=== PATIENT | female | born 1950 | race Caucasian/White ===

== ENCOUNTER 2017-01-16 17:42 | Inpatient (IN) | payer OTHER, MEDICARE ==
[~2017-01-16] VITALS: Ht 160 cm; Wt 113.1 kg
[~2017-01-16 17:42] MED LIST: ALPR0.5T6 PO; ALPR1TAB6 PO; BIFI4CAP PO; CALC600T11 PO; CANA300T PO; DOCU-27 PO; DULO60CA6 PO; FENT1PAT21 TD; FLUT9.9S NS; FURO80TA3 PO; GLUCOSAMINE 1,1 EACH PO; LORA10TA3 PO; MELO15TA6 PO; METH-38 PO; METO25TA9 PO; MONT10TA9 PO; MULT-246 PO; OLOP30.53 NS; OMEG10005 PO; OXYB5TAB7 PO; OXYC20TA PO; PANT40TA3 PO; PHEN37.5 PO; POLY17PO29 PO; POTA20TA82 PO; PROAIR HFA8.5 GM INH; RISE150T3 PO; SERT100T PO; SPIR25TA PO
[2017-01-16 22:10] VITALS: BP 81/51
[2017-01-16 22:11] VITALS: BP 81/51
[2017-01-16] MEDS ORDERED: ACETAMINOPHEN 325 MG TABLET. PO PRN (22:45)
[2017-01-16] MEDS ORDERED: ONDANSETRON PF 4 MG/2 ML VIAL. IV PRN (23:00)
[2017-01-16] MEDS ORDERED: ENOXAPARIN 40 MG/0.4 ML SYRINGE. SQ SCH (23:00)
[2017-01-16] MEDS ORDERED: oxyCODONE IR 5 MG TABLET PO PRN (23:00)
[2017-01-16] MEDS: IV NORMAL SALINE 1000ML BAG 1,000 ML IV SCH (23:00)
[2017-01-17] MEDS: ALPRAZolam 1 MG TABLET PO PRN (00:32)
[2017-01-17 02:40] VITALS: BP 80/40
[2017-01-17] MEDS ORDERED: IPRATRPIUM/ALBUTEROL 0.5/2.5MG 3 ML NEBU. NEB ONE (02:45)
[2017-01-17 05:01] LABS: BASO % 0 % (0-3); EOS % 0 % (0-3); HEMATOCRIT 33.8 % (36.0-47.0); HEMOGLOBIN 11.7 g/dL (12.0-15.5); LYMPH # 0.9 x10^3/uL (1.0-4.8); LYMPH % 16 % (24-48); MEAN CORPUSCULAR HEMOGLOBIN 32 pg (25-35); MEAN CORPUSCULAR HGB CONC 35 g/dL (31-37); MEAN CORPUSCULAR VOLUME 92 fL (79-100); MONO % 3 % (0-9); NEUT % 82 % (31-73); PLATELET COUNT 142 x10^3/uL (140-400); RED BLOOD COUNT 3.66 x10^6/uL (3.50-5.40); RED CELL DISTRIBUTION WIDTH 14.3 % (11.5-14.5)
[2017-01-17 05:19] LABS: CREATININE 1.1 mg/dL (0.6-1.0); GFR 49.7; POTASSIUM 3.9 mmol/L (3.5-5.1)
[2017-01-17 07:00] VITALS: BP 78/39
[2017-01-17] MEDS: IPRATRPIUM/ALBUTEROL 0.5/2.5MG 3 ML NEBU. NEB SCH ×4 (07:50→19:19)
--- NOTE | 2017-01-17 08:01 | EKG ---
[facility] [address] [place] [address] Test Date: 2017-01-17 Test Time: 07:52:01 Pat Name: JAVIER ASH Department: Room: 244 1 Gender: F Terrazzo Roller: LEORA : 1950 Requested By: FERNANDO WISEMAN Order Number: [id number] Reading MD: Michael Sanchez Measurements Intervals [place] Rate: 82 P: 45 CA: 194 QRS: -31 QRSD: 88 T: 4 QT: 400 QTc: 471 Interpretive Statements SINUS RHYTHM ATRIAL PREMATURE COMPLEX(ES) ABNORMAL LEFT AXIS DEVIATION QRS(T) CONTOUR ABNORMALITY CONSISTENT WITH INFERIOR INFARCT AGE UNDETERMINED Electronically Signed On 01-18-2017 15:35:02 CDT by Michael Sanchez
--- NOTE | 2017-01-17 08:56 | RAD ---
Indication difficulty breathing. Cough. Pneumonia. PA and lateral views of the chest were obtained. Comparison is made to a single view examination 08/21/2016. There is unchanged elevation of the right hemidiaphragm. The heart size is unchanged. There are suspect background changes of ulnar vascular congestion. There is some volume loss in the right upper lobe suggesting possible superimposed pneumonia. Clinical correlation advised. Follow-up imaging should be considered. IMPRESSION: Stable cardiomegaly. Volume loss in the right upper lobe suggesting possible pneumonia. Pulmonary infiltrates suggesting superimposed congestive heart failure
[2017-01-17] MEDS ORDERED: DOCUSATE SODIUM 100 MG CAPSULE. PO SCH (09:00)
[2017-01-17] MEDS ORDERED: HYDROCORTISONE SOD SUCC/PF 100 MG/2 ML VIAL. IV SCH (09:00)
--- NOTE | 2017-01-17 10:03 | PDOC ---
PROGRESS NOTES Vitals Vitals Vital Signs Date Time Temp Pulse Resp B/P (MAP) Pulse Ox O2 Delivery O2 Flow Rate FiO2 01/17/17 08:33 Nasal Cannula 4.0 01/17/17 07:50 97 01/17/17 07:00 97.5 75 18 78/39 (52) 97.5 Labs LABS Laboratory Tests Test 01/16/17 22:13 01/17/17 03:30 01/17/17 07:12 Glucose (Fingerstick) 165 mg/dL (70-99) 129 mg/dL (70-99) White Blood Count 6.0 x10^3/uL (4.0-11.0) Red Blood Count 3.66 x10^6/uL (3.50-5.40) Hemoglobin 11.7 g/dL (12.0-15.5) Hematocrit 33.8 % (36.0-47.0) Mean Corpuscular Volume 92 fL (79-100) Mean Corpuscular Hemoglobin 32 pg (25-35) Mean Corpuscular Hemoglobin Concent 35 g/dL (31-37) Red Cell Distribution Width 14.3 % (11.5-14.5) Platelet Count 142 x10^3/uL (140-400) Neutrophils (%) (Auto) 82 % (31-73) Lymphocytes (%) (Auto) 16 % (24-48) Monocytes (%) (Auto) 3 % (0-9) Eosinophils (%) (Auto) 0 % (0-3) Basophils (%) (Auto) 0 % (0-3) Neutrophils # (Auto) 4.9 x10^3uL (1.8-7.7) Lymphocytes # (Auto) 0.9 x10^3/uL (1.0-4.8) Monocytes # (Auto) 0.2 x10^3/uL (0.0-1.1) Eosinophils # (Auto) 0.0 x10^3/uL (0.0-0.7) Basophils # (Auto) 0.0 x10^3/uL (0.0-0.2) Sodium Level 144 mmol/L (136-145) Potassium Level 3.9 mmol/L (3.5-5.1) Chloride Level 104 mmol/L (98-107) Carbon Dioxide Level 34 mmol/L (21-32) Anion Gap 6 (6-14) Blood Urea Nitrogen 32 mg/dL (7-20) Creatinine 1.1 mg/dL (0.6-1.0) Estimated GFR (Cockcroft-Gault) 49.7 Glucose Level 152 mg/dL (70-99) Lactic Acid Level 2.1 mmol/L (0.4-2.0) Calcium Level 9.0 mg/dL (8.5-10.1) Magnesium Level 2.0 mg/dL (1.8-2.4) Thyroid Stimulating Hormone (TSH) 0.229 uIU/mL (0.358-3.74) Comment Review of Relevant I have reviewed the following items jared (where applicable) has been applied. Labs Laboratory Tests Test 01/16/17 22:13 01/17/17 03:30 01/17/17 07:12 Glucose (Fingerstick) 165 mg/dL (70-99) 129 mg/dL (70-99) White Blood Count 6.0 x10^3/uL (4.0-11.0) Red Blood Count 3.66 x10^6/uL (3.50-5.40) Hemoglobin 11.7 g/dL (12.0-15.5) Hematocrit 33.8 % (36.0-47.0) Mean Corpuscular Volume 92 fL (79-100) Mean Corpuscular Hemoglobin 32 pg (25-35) Mean Corpuscular Hemoglobin Concent 35 g/dL (31-37) Red Cell Distribution Width 14.3 % (11.5-14.5) Platelet Count 142 x10^3/uL (140-400) Neutrophils (%) (Auto) 82 % (31-73) Lymphocytes (%) (Auto) 16 % (24-48) Monocytes (%) (Auto) 3 % (0-9) Eosinophils (%) (Auto) 0 % (0-3) Basophils (%) (Auto) 0 % (0-3) Neutrophils # (Auto) 4.9 x10^3uL (1.8-7.7) Lymphocytes # (Auto) 0.9 x10^3/uL (1.0-4.8) Monocytes # (Auto) 0.2 x10^3/uL (0.0-1.1) Eosinophils # (Auto) 0.0 x10^3/uL (0.0-0.7) Basophils # (Auto) 0.0 x10^3/uL (0.0-0.2) Sodium Level 144 mmol/L (136-145) Potassium Level 3.9 mmol/L (3.5-5.1) Chloride Level 104 mmol/L (98-107) Carbon Dioxide Level 34 mmol/L (21-32) Anion Gap 6 (6-14) Blood Urea Nitrogen 32 mg/dL (7-20) Creatinine 1.1 mg/dL (0.6-1.0) Estimated GFR (Cockcroft-Gault) 49.7 Glucose Level 152 mg/dL (70-99) Lactic Acid Level 2.1 mmol/L (0.4-2.0) Calcium Level 9.0 mg/dL (8.5-10.1) Magnesium Level 2.0 mg/dL (1.8-2.4) Thyroid Stimulating Hormone (TSH) 0.229 uIU/mL (0.358-3.74) Laboratory Tests Test 01/16/17 22:13 01/17/17 03:30 01/17/17 07:12 Glucose (Fingerstick) 165 mg/dL (70-99) 129 mg/dL (70-99) White Blood Count 6.0 x10^3/uL (4.0-11.0) Red Blood Count 3.66 x10^6/uL (3.50-5.40) Hemoglobin 11.7 g/dL (12.0-15.5) Hematocrit 33.8 % (36.0-47.0) Mean Corpuscular Volume 92 fL (79-100) Mean Corpuscular Hemoglobin 32 pg (25-35) Mean Corpuscular Hemoglobin Concent 35 g/dL (31-37) Red Cell Distribution Width 14.3 % (11.5-14.5) Platelet Count 142 x10^3/uL (140-400) Neutrophils (%) (Auto) 82 % (31-73) Lymphocytes (%) (Auto) 16 % (24-48) Monocytes (%) (Auto) 3 % (0-9) Eosinophils (%) (Auto) 0 % (0-3) Basophils (%) (Auto) 0 % (0-3) Neutrophils # (Auto) 4.9 x10^3uL (1.8-7.7) Lymphocytes # (Auto) 0.9 x10^3/uL (1.0-4.8) Monocytes # (Auto) 0.2 x10^3/uL (0.0-1.1) Eosinophils # (Auto) 0.0 x10^3/uL (0.0-0.7) Basophils # (Auto) 0.0 x10^3/uL (0.0-0.2) Sodium Level 144 mmol/L (136-145) Potassium Level 3.9 mmol/L (3.5-5.1) Chloride Level 104 mmol/L (98-107) Carbon Dioxide Level 34 mmol/L (21-32) Anion Gap 6 (6-14) Blood Urea Nitrogen 32 mg/dL (7-20) Creatinine 1.1 mg/dL (0.6-1.0) Estimated GFR (Cockcroft-Gault) 49.7 Glucose Level 152 mg/dL (70-99) Lactic Acid Level 2.1 mmol/L (0.4-2.0) Calcium Level 9.0 mg/dL (8.5-10.1) Magnesium Level 2.0 mg/dL (1.8-2.4) Thyroid Stimulating Hormone (TSH) 0.229 uIU/mL (0.358-3.74) Medications Current Medications Sodium Chloride 1,000 ml @ 60 mls/hr [id number] IV Last administered on 23:00; Start 01/16/17 at 23:00 Ondansetron HCl (Zofran) 4 mg PRN Q6HRS PRN IV NAUSEA/VOMITING; Start 01/16/17 at 23:00 Oxycodone HCl (Roxicodone) 10 mg PRN Q8HRS PRN PO MODERATE PAIN, SEVERE PAIN; Start 01/16/17 at 23:00 Acetaminophen (Tylenol) 650 mg PRN Q6HRS PRN PO Headaches, Temp > 101.5F; Start 01/16/17 at 22:45 Docusate Sodium (Colace) 100 mg BID PO ; Start 01/17/17 at 09:00 Enoxaparin Sodium (Lovenox 40mg Syringe) 40 mg Q24H SQ Last administered on 00:33; Start 01/16/17 at 23:00 Hydrocortisone Sodium Succinate (Solu-CORTEF) 60 mg Q12HR IV Last administered on 01/17/17 09:42; Start 01/17/17 at 09:00 Famotidine (Pepcid) 20 mg QHS PO ; Start 01/17/17 at 21:00 Albuterol/ Ipratropium (Duoneb) 3 ml RTQID NEB Last administered on 01/17/17 07:50; Start 01/17/17 at 08:00 Alprazolam (Xanax) 1 mg PRN Q8HRS PRN PO ANXIETY / AGITATION Last administered on 01/17/17 00:32; Start 01/17/17 at 00:15 Albuterol/ Ipratropium (Duoneb) 3 ml 1X ONCE NEB Last administered on 02:49; Start 01/17/17 at 02:45; Stop 01/17/17 at 02:46; Status DC Guaifenesin (Robitussin Dm) 10 ml PRN Q6HRS PRN PO COUGH; Start 01/17/17 at 02: 45 Active Scripts Active Reported Phentermine Hcl 37.5 Mg Tablet 1 Tab PO PRN BID PRN Actonel (Risedronate Sodium) 150 Mg Tablet 1 Tab PO QMONTH Miralax (Polyethylene Glycol 3350) 17 Gm Powd.pack 1 Packet PO DAILY PRN Olopatadine HCl 30.5 Gm [place].pump 30.5 Gm NS DAILY Flonase Allergy Relief (Fluticasone Propionate) 9.9 Ml [place].susp 1 Sprays NS BID FENTANYL 100mcg/hr (Fentanyl) 1 Each Patch.td72 1 Patch TD Q72H Proair Hfa Inhaler (Albuterol Sulfate) 8.5 Gm Hfa.aer.ad 2 Puff INH QID PRN [place]-3 ([place]-3 Fatty Acids) 1,000 Mg Capsule 1,000 Mg PO BID Multi-Vitamin Daily (Multivitamin) 1 Each Tablet 1 Each PO Glucosamine 1,500 Complex Cp (Gluc Becerril/Chondro Becerril A/Vit C/Mn) 1 Each Capsule 1 Each PO BID Calcium Carbonate 600 Mg Tablet 600 Mg PO BID Furosemide 80 Mg Tablet 1 Tab PO DAILY Aldactone (Spironolactone) 25 Mg Tablet 2 Tab PO DAILY16 Zoloft (Sertraline Hcl) 100 Mg Tablet 2 Tab PO DAILY Potassium Chloride 20 Meq Tablet.er 20 Meq PO BID Protonix (Pantoprazole Sodium) 40 Mg Tablet.dr 1 Tab PO BID Oxycodone Hcl 20 Mg Tablet 40 Mg PO TID PRN Oxybutynin Chloride 5 Mg Tablet 1 Tab PO BID Montelukast Sodium Tablet (Montelukast Sodium) 10 Mg Tablet 10 Mg PO HS Metoprolol Succinate ( Xl ) (Metoprolol Succinate) 25 Mg Tab.er.24h 1 Tab PO DAILY Robaxin-750 (Methocarbamol) 750 Mg Tablet 750 Mg PO QID Mobic (Meloxicam) 15 Mg Tablet 1 Tab PO DAILY Loratadine 10 Mg Tablet 1 Tab PO DAILY Cymbalta (Duloxetine Hcl) 60 Mg Capsule.dr 1 Cap PO BID76 Colace (Docusate Sodium) 100 Mg Capsule 1 Cap PO BID Invokana (Canagliflozin) 300 Mg Tablet 300 Mg PO DAILY Alprazolam 1 Mg Tablet 1 Tab PO TID Alprazolam 1 Mg Tablet 1 Tab PO HS Alprazolam 0.5 Mg Tablet 1 Tab PO HS Align (Bifidobacterium Infantis) 4 Mg Capsule 4 Mg PO HS Vitals/I & O Vital Sign - Last 24 Hours 01/16/17 01/16/17 01/16/17 01/17/17 22:00 22:10 22:11 02:40 Temp 98.3 98.3 97.2 98.3 98.3 97.2 Pulse 92 92 86 Resp 22 22 18 B/P (MAP) 81/51 (61) 81/51 (61) 80/40 (53) Pulse Ox 94 94 95 O2 Delivery Nasal Cannula Nasal Cannula Nasal Cannula Nasal Cannula O2 Flow Rate 4.0 4.0 4.0 4.0 01/17/17 01/17/17 01/17/17 01/17/17 02:49 07:00 07:50 08:33 Temp 97.5 97.5 Pulse 75 Resp 18 B/P (MAP) 78/39 (52) Pulse Ox 97 98 97 O2 Delivery Nasal Cannula Nasal Cannula Nasal Cannula Nasal Cannula O2 Flow Rate 4.0 4.0 4.0 4.0 Intake and Output 01/16/17 01/16/17 01/17/17 15:00 23:00 07:00 Intake Total 740 ml Output Total 200 ml Balance 540 ml ZHANNA DAUGHERTY MD January 17, 2017 10:03
[2017-01-17] MEDS ORDERED: ACETAMINOPHEN 325 MG TABLET. PO PRN (10:15)
[2017-01-17] MEDS ORDERED: ONDANSETRON PF 4 MG/2 ML VIAL. IV PRN (10:15)
[2017-01-17] MEDS ORDERED: hydrALAZINE 20 MG/ML VIAL. IVP PRN (10:15)
[2017-01-17] MEDS ORDERED: BUDE10.2 IH (10:39)
[2017-01-17] MEDS ORDERED: LAMO200T PO (10:39)
[2017-01-17] MEDS ORDERED: FAMO40TA4 PO (10:39)
[2017-01-17] MEDS ORDERED: OXYC10TA PO (10:39)
[2017-01-17] MEDS ORDERED: ESCI20TA10 PO (10:39)
[2017-01-17] MEDS ORDERED: ALPR2TAB5 PO (10:39)
[2017-01-17] MEDS ORDERED: FURO20TA3 PO (10:39)
[2017-01-17] MEDS ORDERED: SENN1TAB21 PO (10:39)
[2017-01-17] MEDS ORDERED: PRED20TA PO (10:39)
[2017-01-17] MEDS ORDERED: LISI2.5T PO (10:39)
[2017-01-17 11:00] VITALS: BP 109/53
--- NOTE | 2017-01-17 13:01 | RAD ---
CT of the chest without contrast, 01/17/2017: History: Pneumonia Noncontrast scans were obtained with multiplanar reconstructions produced. The right hemidiaphragm is mildly elevated. There are moderate bilateral parenchymal opacities representing a combination of interstitial disease and groundglass opacities. There is dominant involvement of the periphery of the lungs. The pattern suggests fibrosis. There is bronchiectasis in both lungs, most severe anteriorly in the upper lobes and the right middle lobe. There are calcified granulomata in the right lung and at the right hilum and in the mediastinum. No pleural fluid is evident. The thoracic aorta is of normal caliber. Minimal coronary artery calcification is present. The heart is not enlarged. There is a borderline enlarged right paratracheal lymph node measuring 14 mm. Several other smaller mediastinal lymph nodes are present. Moderate multilevel degenerative changes are present in the spine. There are anterior and posterior surgical fixation devices in the cervical spine. IMPRESSION: 1. Moderate bilateral bronchiectasis with predominantly peripheral pulmonary opacities most compatible with a chronic fibrosing process. A component of active pneumonia cannot be excluded. 2. Borderline mediastinal adenopathy. 3. Mild chronic elevation of the right hemidiaphragm. PQRS Compliance Statement: One or more of the following individualized dose reduction techniques were utilized for this examination: 1. Automated exposure control 2. Adjustment of the mA and/or kV according to patient size 3. Use of iterative reconstruction technique
[2017-01-17] MEDS ORDERED: VANCOMYCIN 2 GM in IV NORMAL SALINE 500ML BAG 500 ML IV ONE (13:30)
[2017-01-17] MEDS: FUROSEMIDE 20 MG TABLET PO SCH (13:43)
[2017-01-17] MEDS: METOPROLOL SUCC 24HR ER 25 MG TAB.ER.24H. PO SCH (13:43)
[2017-01-17] MEDS: methylPREDNISolone SOD SUCC PF 40 MG/ML VIAL. IV SCH ×2 (13:43→21:04)
[2017-01-17] MEDS: LISINOPRIL 2.5 MG TABLET PO SCH (13:43)
[2017-01-17] MEDS: OXYBUTYNIN CHLORIDE 5 MG TABLET PO SCH ×2 (13:43→21:02)
[2017-01-17] MEDS ORDERED: oxyCODONE IR 5 MG TABLET PO PRN (13:45)
[2017-01-17] MEDS: MELOXICAM 7.5 MG TABLET PO SCH (14:17)
[2017-01-17] MEDS: guaiFENesin DM 200MG/20MG 10 ML SYRUP PO PRN (14:17)
[2017-01-17 15:00] VITALS: BP 101/55
--- NOTE | 2017-01-17 15:20 | PDOC1 ---
History and Physical Date of Admission Date of Admission 01/17/17 Identification/Chief Complaint Chief Complaint sob, fever Problems: Source Source: Chart review, Patient Past Medical History Cardiovascular: CHF, HTN, Hyperlipidemia Endocrine: Diabetes Past Surgical History Past Surgical History: Other Family History Family History: Other (unknown) Social History ALCOHOL: none Drugs: None Current Medications Current Medications Current Medications Medications (Trade) Dose Ordered Sig/[place] Start Time Stop Time Status Last Admin Dose Admin Acetaminophen (Tylenol) 325 mg PRN Q6HRS PRN 01/17/17 10:15 Acetaminophen/ Hydrocodone Bitart (Lortab 5/325) 1 tab PRN Q6HRS PRN 01/17/17 10:15 Albuterol Sulfate (Ventolin Neb Soln) 2.5 mg PRN Q4HRS PRN 01/17/17 10:15 Albuterol/ Ipratropium (Duoneb) 3 ml 1X ONCE 01/17/17 02:45 01/17/17 02:46 DC 01/17/17 02:49 3 ML Alprazolam (Xanax) 3 mg QHS 01/17/17 21:00 Cetirizine HCl (ZyrTEC) 10 mg DAILY 01/18/17 09:00 Docusate Sodium (Colace) 100 mg BID 01/17/17 21:00 Duloxetine HCl (Cymbalta) 60 mg BID76 01/17/17 18:00 Enoxaparin Sodium (Lovenox 40mg Syringe) 40 mg BID 01/17/17 21:00 Escitalopram Oxalate (Lexapro) 20 mg DAILY 01/18/17 09:00 Famotidine (Pepcid) 40 mg QHS 01/17/17 21:00 Fish Oil (Fish Oil) 1,000 mg BID 01/17/17 21:00 Furosemide (Lasix) 20 mg DAILY 01/17/17 14:00 01/17/17 13:43 20 MG Guaifenesin (Robitussin Dm) 10 ml PRN Q6HRS PRN 01/17/17 02:45 01/17/17 14:17 10 ML Guaifenesin/ Codeine Phosphate (Robitussin Ac) 5 ml PRN Q6HRS PRN 01/17/17 13:15 Hydralazine HCl (Apresoline) 10 mg PRN Q4HRS PRN 01/17/17 10:15 Hydrocortisone Sodium Succinate (Solu-CORTEF) 60 mg Q12HR 01/17/17 09:00 01/17/17 13:29 DC 01/17/17 09:42 60 MG Lactobacillus Acidophilus (Bacid, Jodi-Bid) 2 tab QHS 01/17/17 21:00 Lamotrigine (LaMICtal) 200 mg BID 01/17/17 21:00 Levofloxacin/ Dextrose 150 ml @ 100 mls/hr Q24H 01/17/17 13:30 01/17/17 13:42 100 MLS/HR Lisinopril (Prinivil) 2.5 mg DAILY 01/17/17 14:00 01/17/17 13:43 2.5 MG Meloxicam (Mobic) 15 mg DAILY 01/17/17 14:00 01/17/17 14:17 15 MG Methylprednisolone Sodium Succinate (SOLU-Medrol 40MG VIAL) 40 mg Q8HRS 01/17/17 14:00 01/17/17 13:43 40 MG Metoprolol Succinate (Toprol Xl) 25 mg DAILY 01/17/17 14:00 01/17/17 13:43 25 MG Montelukast Sodium (Singulair) 10 mg HS 01/17/17 21:00 Ondansetron HCl (Zofran) 4 mg PRN Q8HRS PRN 01/17/17 10:15 Oxybutynin Chloride (Ditropan) 5 mg BID 01/17/17 14:00 01/17/17 13:43 5 MG Oxycodone HCl (Roxicodone) 40 mg PRN TID PRN 01/17/17 13:45 Pantoprazole Sodium (Protonix) 40 mg BIDAC 01/17/17 16:30 Piperacillin Sod/ Tazobactam Sod 3.375 gm/Sodium Chloride 50 ml @ 100 mls/hr Q6HRS 01/17/17 18:00 Senna/Docusate Sodium (Senna Plus) 1 tab QHS 01/17/17 21:00 Sertraline HCl (Zoloft) 200 mg DAILY 01/18/17 09:00 Cancel Sodium Chloride 1,000 ml @ 60 mls/hr [id number] 01/16/17 23:00 01/16/17 23:00 60 MLS/HR Vancomycin HCl (Vanco Per Pharmacy) 1 each PRN DAILY PRN 01/17/17 13:15 Vancomycin HCl 2 gm/Sodium Chloride 500 ml @ 250 mls/hr 1X ONCE 01/17/17 13:30 01/17/17 15:29 Allergies Allergies Allergies Coded Allergies Type Severity Reaction Last Updated Verified pregabalin Allergy Severe SWELLING, WEIGHT GAIN 11/23/15 Yes sitagliptin Allergy Severe "I BOTTOM OUT LIKE A DIABETIC" 11/23/15 Yes Sulfa (Sulfonamide Antibiotics) Allergy Intermediate RASH 11/23/15 Yes adhesive Allergy Intermediate BLISTERS, RASH 11/23/15 Yes ROS Review of System CONSTITUTIONAL: fever or chills EYES: No recent changes SKIN: No rash or itching CARDIOVASCULAR: No chest pain, syncope, palpitations, or edema RESPIRATORY: SOB or cough GASTROINTESTINAL: No nausea, vomiting or abdominal pain NEUROLOGICAL: No headaches or weakness ENDOCRINE: No cold or heat intolerance GENITOURINARY: No urgency or frequency of urination MUSCULOSKELETAL: No back pain or joint pain LYMPHATICS: No enlarged lymph nodes PSYCHIATRIC: No anxiety or depression Physical Exam Physical Exam GEN.: No apparent distress. Alert and oriented. oxygen HEENT: Head is normocephalic, atraumatic NECK: Supple. no JVD LUNGS: Rales HEART: RRR, S1, S2 present. Peripheral pulses intact ABDOMEN: Soft, nontender. Positive bowel sounds. EXTREMITIES: Without any cyanosis. NEUROLOGIC: Normal speech, normal tone PSYCHIATRIC: Normal affect, normal mood. SKIN: dry Vitals Vitals Vital Signs Date Time Temp Pulse Resp B/P (MAP) Pulse Ox O2 Delivery O2 Flow Rate FiO2 01/17/17 15:00 97.9 100 18 101/55 (70) 95 Nasal Cannula 4.0 97.9 Labs Labs Laboratory Tests Test 01/16/17 22:13 01/17/17 03:30 01/17/17 07:12 01/17/17 11:54 Glucose (Fingerstick) 165 mg/dL (70-99) 129 mg/dL (70-99) 131 mg/dL (70-99) White Blood Count 6.0 x10^3/uL (4.0-11.0) Red Blood Count 3.66 x10^6/uL (3.50-5.40) Hemoglobin 11.7 g/dL (12.0-15.5) Hematocrit 33.8 % (36.0-47.0) Mean Corpuscular Volume 92 fL (79-100) Mean Corpuscular Hemoglobin 32 pg (25-35) Mean Corpuscular Hemoglobin Concent 35 g/dL (31-37) Red Cell Distribution Width 14.3 % (11.5-14.5) Platelet Count 142 x10^3/uL (140-400) Neutrophils (%) (Auto) 82 % (31-73) Lymphocytes (%) (Auto) 16 % (24-48) Monocytes (%) (Auto) 3 % (0-9) Eosinophils (%) (Auto) 0 % (0-3) Basophils (%) (Auto) 0 % (0-3) Neutrophils # (Auto) 4.9 x10^3uL (1.8-7.7) Lymphocytes # (Auto) 0.9 x10^3/uL (1.0-4.8) Monocytes # (Auto) 0.2 x10^3/uL (0.0-1.1) Eosinophils # (Auto) 0.0 x10^3/uL (0.0-0.7) Basophils # (Auto) 0.0 x10^3/uL (0.0-0.2) Sodium Level 144 mmol/L (136-145) Potassium Level 3.9 mmol/L (3.5-5.1) Chloride Level 104 mmol/L (98-107) Carbon Dioxide Level 34 mmol/L (21-32) Anion Gap 6 (6-14) Blood Urea Nitrogen 32 mg/dL (7-20) Creatinine 1.1 mg/dL (0.6-1.0) Estimated GFR (Cockcroft-Gault) 49.7 Glucose Level 152 mg/dL (70-99) Lactic Acid Level 2.1 mmol/L (0.4-2.0) Calcium Level 9.0 mg/dL (8.5-10.1) Magnesium Level 2.0 mg/dL (1.8-2.4) Thyroid Stimulating Hormone (TSH) 0.229 uIU/mL (0.358-3.74) Laboratory Tests Test 01/16/17 22:13 01/17/17 03:30 01/17/17 07:12 01/17/17 11:54 Glucose (Fingerstick) 165 mg/dL (70-99) 129 mg/dL (70-99) 131 mg/dL (70-99) White Blood Count 6.0 x10^3/uL (4.0-11.0) Red Blood Count 3.66 x10^6/uL (3.50-5.40) Hemoglobin 11.7 g/dL (12.0-15.5) Hematocrit 33.8 % (36.0-47.0) Mean Corpuscular Volume 92 fL (79-100) Mean Corpuscular Hemoglobin 32 pg (25-35) Mean Corpuscular Hemoglobin Concent 35 g/dL (31-37) Red Cell Distribution Width 14.3 % (11.5-14.5) Platelet Count 142 x10^3/uL (140-400) Neutrophils (%) (Auto) 82 % (31-73) Lymphocytes (%) (Auto) 16 % (24-48) Monocytes (%) (Auto) 3 % (0-9) Eosinophils (%) (Auto) 0 % (0-3) Basophils (%) (Auto) 0 % (0-3) Neutrophils # (Auto) 4.9 x10^3uL (1.8-7.7) Lymphocytes # (Auto) 0.9 x10^3/uL (1.0-4.8) Monocytes # (Auto) 0.2 x10^3/uL (0.0-1.1) Eosinophils # (Auto) 0.0 x10^3/uL (0.0-0.7) Basophils # (Auto) 0.0 x10^3/uL (0.0-0.2) Sodium Level 144 mmol/L (136-145) Potassium Level 3.9 mmol/L (3.5-5.1) Chloride Level 104 mmol/L (98-107) Carbon Dioxide Level 34 mmol/L (21-32) Anion Gap 6 (6-14) Blood Urea Nitrogen 32 mg/dL (7-20) Creatinine 1.1 mg/dL (0.6-1.0) Estimated GFR (Cockcroft-Gault) 49.7 Glucose Level 152 mg/dL (70-99) Lactic Acid Level 2.1 mmol/L (0.4-2.0) Calcium Level 9.0 mg/dL (8.5-10.1) Magnesium Level 2.0 mg/dL (1.8-2.4) Thyroid Stimulating Hormone (TSH) 0.229 uIU/mL (0.358-3.74) VTE Prophylaxis Ordered VTE Prophylaxis Devices: Yes VTE Pharmacological Prophylaxi: Yes ZHANNA DAUGHERTY MD January 17, 2017 15:20
[2017-01-17] MEDS: IV NORMAL SALINE 1000ML BAG 1,000 ML IV SCH (15:40)
[2017-01-17 15:48] LABS: BASO % 0 % (0-3); EOS % 0 % (0-3); HEMATOCRIT 34.8 % (36.0-47.0); HEMOGLOBIN 11.4 g/dL (12.0-15.5); LYMPH # 0.5 x10^3/uL (1.0-4.8); LYMPH % 5 % (24-48); MEAN CORPUSCULAR HEMOGLOBIN 31 pg (25-35); MEAN CORPUSCULAR HGB CONC 33 g/dL (31-37); MEAN CORPUSCULAR VOLUME 95 fL (79-100); MONO % 8 % (0-9); NEUT % 86 % (31-73); PLATELET COUNT 156 x10^3/uL (140-400); RED BLOOD COUNT 3.67 x10^6/uL (3.50-5.40); RED CELL DISTRIBUTION WIDTH 14.1 % (11.5-14.5); WHITE BLOOD COUNT 8.6 x10^3/uL (4.0-11.0)
[2017-01-17 16:02] LABS: PLT ESTIMATE ADEQUATE (ADEQUATE)
--- NOTE | 2017-01-17 16:39 | PDOC ---
PULMONARY PROGRESS NOTES Vitals Vital Signs Date Time Temp Pulse Resp B/P (MAP) Pulse Ox O2 Delivery O2 Flow Rate FiO2 01/17/17 15:45 Nasal Cannula 4.0 01/17/17 15:00 97.9 100 18 101/55 (70) 95 97.9 Cardiovascular: S1, S2 Labs Laboratory Tests Test 01/16/17 22:13 01/17/17 03:30 01/17/17 07:12 01/17/17 11:54 Glucose (Fingerstick) 165 mg/dL (70-99) 129 mg/dL (70-99) 131 mg/dL (70-99) White Blood Count 6.0 x10^3/uL (4.0-11.0) Red Blood Count 3.66 x10^6/uL (3.50-5.40) Hemoglobin 11.7 g/dL (12.0-15.5) Hematocrit 33.8 % (36.0-47.0) Mean Corpuscular Volume 92 fL (79-100) Mean Corpuscular Hemoglobin 32 pg (25-35) Mean Corpuscular Hemoglobin Concent 35 g/dL (31-37) Red Cell Distribution Width 14.3 % (11.5-14.5) Platelet Count 142 x10^3/uL (140-400) Neutrophils (%) (Auto) 82 % (31-73) Lymphocytes (%) (Auto) 16 % (24-48) Monocytes (%) (Auto) 3 % (0-9) Eosinophils (%) (Auto) 0 % (0-3) Basophils (%) (Auto) 0 % (0-3) Neutrophils # (Auto) 4.9 x10^3uL (1.8-7.7) Lymphocytes # (Auto) 0.9 x10^3/uL (1.0-4.8) Monocytes # (Auto) 0.2 x10^3/uL (0.0-1.1) Eosinophils # (Auto) 0.0 x10^3/uL (0.0-0.7) Basophils # (Auto) 0.0 x10^3/uL (0.0-0.2) Sodium Level 144 mmol/L (136-145) Potassium Level 3.9 mmol/L (3.5-5.1) Chloride Level 104 mmol/L (98-107) Carbon Dioxide Level 34 mmol/L (21-32) Anion Gap 6 (6-14) Blood Urea Nitrogen 32 mg/dL (7-20) Creatinine 1.1 mg/dL (0.6-1.0) Estimated GFR (Cockcroft-Gault) 49.7 Glucose Level 152 mg/dL (70-99) Lactic Acid Level 2.1 mmol/L (0.4-2.0) Calcium Level 9.0 mg/dL (8.5-10.1) Magnesium Level 2.0 mg/dL (1.8-2.4) Thyroid Stimulating Hormone (TSH) 0.229 uIU/mL (0.358-3.74) Test 01/17/17 15:43 White Blood Count 8.6 x10^3/uL (4.0-11.0) Red Blood Count 3.67 x10^6/uL (3.50-5.40) Hemoglobin 11.4 g/dL (12.0-15.5) Hematocrit 34.8 % (36.0-47.0) Mean Corpuscular Volume 95 fL (79-100) Mean Corpuscular Hemoglobin 31 pg (25-35) Mean Corpuscular Hemoglobin Concent 33 g/dL (31-37) Red Cell Distribution Width 14.1 % (11.5-14.5) Platelet Count 156 x10^3/uL (140-400) Neutrophils (%) (Auto) 86 % (31-73) Lymphocytes (%) (Auto) 5 % (24-48) Monocytes (%) (Auto) 8 % (0-9) Eosinophils (%) (Auto) 0 % (0-3) Basophils (%) (Auto) 0 % (0-3) Neutrophils # (Auto) 7.4 x10^3uL (1.8-7.7) Lymphocytes # (Auto) 0.5 x10^3/uL (1.0-4.8) Monocytes # (Auto) 0.7 x10^3/uL (0.0-1.1) Eosinophils # (Auto) 0.0 x10^3/uL (0.0-0.7) Basophils # (Auto) 0.0 x10^3/uL (0.0-0.2) Segmented Neutrophils % 82 % (35-66) Band Neutrophils % 5 % (0-9) Lymphocytes % 4 % (24-48) Monocytes % 9 % (0-10) Platelet Estimate Adequate (ADEQUATE) Laboratory Tests Test 01/16/17 22:13 01/17/17 03:30 01/17/17 07:12 01/17/17 11:54 Glucose (Fingerstick) 165 mg/dL (70-99) 129 mg/dL (70-99) 131 mg/dL (70-99) White Blood Count 6.0 x10^3/uL (4.0-11.0) Red Blood Count 3.66 x10^6/uL (3.50-5.40) Hemoglobin 11.7 g/dL (12.0-15.5) Hematocrit 33.8 % (36.0-47.0) Mean Corpuscular Volume 92 fL (79-100) Mean Corpuscular Hemoglobin 32 pg (25-35) Mean Corpuscular Hemoglobin Concent 35 g/dL (31-37) Red Cell Distribution Width 14.3 % (11.5-14.5) Platelet Count 142 x10^3/uL (140-400) Neutrophils (%) (Auto) 82 % (31-73) Lymphocytes (%) (Auto) 16 % (24-48) Monocytes (%) (Auto) 3 % (0-9) Eosinophils (%) (Auto) 0 % (0-3) Basophils (%) (Auto) 0 % (0-3) Neutrophils # (Auto) 4.9 x10^3uL (1.8-7.7) Lymphocytes # (Auto) 0.9 x10^3/uL (1.0-4.8) Monocytes # (Auto) 0.2 x10^3/uL (0.0-1.1) Eosinophils # (Auto) 0.0 x10^3/uL (0.0-0.7) Basophils # (Auto) 0.0 x10^3/uL (0.0-0.2) Sodium Level 144 mmol/L (136-145) Potassium Level 3.9 mmol/L (3.5-5.1) Chloride Level 104 mmol/L (98-107) Carbon Dioxide Level 34 mmol/L (21-32) Anion Gap 6 (6-14) Blood Urea Nitrogen 32 mg/dL (7-20) Creatinine 1.1 mg/dL (0.6-1.0) Estimated GFR (Cockcroft-Gault) 49.7 Glucose Level 152 mg/dL (70-99) Lactic Acid Level 2.1 mmol/L (0.4-2.0) Calcium Level 9.0 mg/dL (8.5-10.1) Magnesium Level 2.0 mg/dL (1.8-2.4) Thyroid Stimulating Hormone (TSH) 0.229 uIU/mL (0.358-3.74) Test 01/17/17 15:43 White Blood Count 8.6 x10^3/uL (4.0-11.0) Red Blood Count 3.67 x10^6/uL (3.50-5.40) Hemoglobin 11.4 g/dL (12.0-15.5) Hematocrit 34.8 % (36.0-47.0) Mean Corpuscular Volume 95 fL (79-100) Mean Corpuscular Hemoglobin 31 pg (25-35) Mean Corpuscular Hemoglobin Concent 33 g/dL (31-37) Red Cell Distribution Width 14.1 % (11.5-14.5) Platelet Count 156 x10^3/uL (140-400) Neutrophils (%) (Auto) 86 % (31-73) Lymphocytes (%) (Auto) 5 % (24-48) Monocytes (%) (Auto) 8 % (0-9) Eosinophils (%) (Auto) 0 % (0-3) Basophils (%) (Auto) 0 % (0-3) Neutrophils # (Auto) 7.4 x10^3uL (1.8-7.7) Lymphocytes # (Auto) 0.5 x10^3/uL (1.0-4.8) Monocytes # (Auto) 0.7 x10^3/uL (0.0-1.1) Eosinophils # (Auto) 0.0 x10^3/uL (0.0-0.7) Basophils # (Auto) 0.0 x10^3/uL (0.0-0.2) Segmented Neutrophils % 82 % (35-66) Band Neutrophils % 5 % (0-9) Lymphocytes % 4 % (24-48) Monocytes % 9 % (0-10) Platelet Estimate Adequate (ADEQUATE) Medications Active Scripts Medications Dose Route/Sig Max Daily Dose Days Date Category Oxycodone Hcl 10 Mg Tablet 20 Mg PO TID PRN 01/17/17 Reported Symbicort 160-4.5 Mcg Inhaler (Budesonide/Formoterol Fumarate) 10.2 Gm Hfa.aer.ad 2 Puff IH BID 01/17/17 Reported Alprazolam 2 Mg Tablet 1.5 Tab PO QHS 01/17/17 Reported Senna Plus Tablet (Sennosides/Docusate Sodium) 1 Each Tablet 1 Each PO QHS 01/17/17 Reported Prednisone 20 Mg Tablet 1 Tab PO DAILY 01/17/17 Reported Lisinopril 2.5 Mg Tablet 1 Tab PO DAILY 01/17/17 Reported Lamotrigine 200 Mg Tablet 1 Tab PO BID 01/17/17 Reported Furosemide 20 Mg Tablet 1 Tab PO DAILY 01/17/17 Reported Famotidine 40 Mg Tablet 40 Mg PO HS 01/17/17 Reported Lexapro (Escitalopram Oxalate) 20 Mg Tablet 25 Mg PO DAILY 01/17/17 Reported Phentermine Hcl 37.5 Mg Tablet 1 Tab PO PRN BID PRN 08/21/16 Reported Actonel (Risedronate Sodium) 150 Mg Tablet 1 Tab PO QMONTH 08/21/16 Reported Miralax (Polyethylene Glycol 3350) 17 Gm Powd.pack 1 Packet PO DAILY PRN 08/21/16 Reported Olopatadine HCl 30.5 Gm [place].pump 30.5 Gm NS DAILY 08/21/16 Reported Flonase Allergy Relief (Fluticasone Propionate) 9.9 Ml [place].susp 1 Sprays NS BID 08/21/16 Reported FENTANYL 100mcg/hr (Fentanyl) 1 Each Patch.td72 1 Patch TD Q72H 08/21/16 Reported Proair Hfa Inhaler (Albuterol Sulfate) 8.5 Gm Hfa.aer.ad 2 Puff INH QID PRN 08/21/16 Reported Fairmont-3 (Fairmont-3 Fatty Acids) 1,000 Mg Capsule 1,000 Mg PO BID 08/21/16 Reported Multi-Vitamin Daily (Multivitamin) 1 Each Tablet 1 Each PO 08/21/16 Reported Glucosamine 1,500 Complex Cp (Gluc Becerril/Chondro Becerril A/Vit C/Mn) 1 Each Capsule 1 Each PO BID 08/21/16 Reported Calcium Carbonate 600 Mg Tablet 600 Mg PO BID 08/21/16 Reported Zoloft (Sertraline Hcl) 100 Mg Tablet 2 Tab PO DAILY 08/21/16 Reported Protonix (Pantoprazole Sodium) 40 Mg Tablet.dr 1 Tab PO BID 08/21/16 Reported Oxycodone Hcl 20 Mg Tablet 40 Mg PO TID PRN 08/21/16 Reported Oxybutynin Chloride 5 Mg Tablet 1 Tab PO BID 08/21/16 Reported Montelukast Sodium Tablet (Montelukast Sodium) 10 Mg Tablet 10 Mg PO HS 08/21/16 Reported Metoprolol Succinate ( Xl ) (Metoprolol Succinate) 25 Mg Tab.er.24h 1 Tab PO DAILY 08/21/16 Reported Mobic (Meloxicam) 15 Mg Tablet 1 Tab PO DAILY 08/21/16 Reported Loratadine 10 Mg Tablet 1 Tab PO DAILY 08/21/16 Reported Cymbalta (Duloxetine Hcl) 60 Mg Capsule.dr 1 Cap PO BID76 08/21/16 Reported Colace (Docusate Sodium) 100 Mg Capsule 1 Cap PO BID 08/21/16 Reported Alprazolam 1 Mg Tablet 1 Tab PO TID 08/21/16 Reported Align (Bifidobacterium Infantis) 4 Mg Capsule 4 Mg PO HS 08/21/16 Reported Impression . FULL NOTE DICTATED AGREE WITH CURRENT RX PULMONARY FIBROSIS WITH SUPERIMPOSED PNEUMONIA LINETTE EDWARDS MD January 17, 2017 16:39
[2017-01-17] MEDS: VANCOMYCIN PER PHARMACY MC PRN (17:31)
[2017-01-17] MEDS: DULoxetine HCL 30 MG CAPSULE.DR PO SCH (18:09)
[2017-01-17] MEDS: PIPERACILLIN/TAZOBACTAM 3.375 GM in IV NORMAL SALINE 50ML 50 ML IV SCH ×2 (18:09→23:50)
[2017-01-17] MEDS: PANTOPRAZOLE 40 MG TABLET.DR. PO SCH (18:09)
[2017-01-17] MEDS: HYDROcodone/APAP 5/325MG 1 TAB TABLET PO PRN (18:29)
[2017-01-17 19:40] VITALS: BP 103/55
[2017-01-17] MEDS ORDERED: FAMOTIDINE 20 MG TABLET. PO SCH (21:00)
[2017-01-17] MEDS: OMEGA-3 FATTY ACIDS/FISH OIL 1,000 MG CAPSULE. PO SCH (21:02)
[2017-01-17] MEDS: LACTOBACILLUS ACIDOPH & BULGAR 1 TABLET. PO SCH (21:03)
[2017-01-17] MEDS: lamoTRIgine 100 MG TABLET. PO SCH (21:03)
[2017-01-17] MEDS: SENNOSIDES/DOCUSATE 8.6/50MG TABLET. PO SCH (21:03)
[2017-01-17] MEDS: FAMOTIDINE 20 MG TABLET. PO SCH (21:03)
[2017-01-17] MEDS: ALPRAZolam 1 MG TABLET PO SCH (21:03)
[2017-01-17] MEDS: MONTELUKAST SODIUM 10 MG TABLET. PO SCH (21:03)
[2017-01-17] MEDS: DOCUSATE SODIUM 100 MG CAPSULE. PO SCH (21:03)
[2017-01-17] MEDS: ENOXAPARIN 40 MG/0.4 ML SYRINGE. SQ SCH (21:04)
[2017-01-17 23:40] VITALS: BP 126/63
[2017-01-18] VITALS (7 sets, daily range): BP systolic 95–109; BP diastolic 51–70
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
[2017-01-18] MEDS: guaiFENesin DM 200MG/20MG 10 ML SYRUP PO PRN ×3 (00:45→22:52)
[2017-01-18] MEDS: oxyCODONE IR 5 MG TABLET PO PRN (01:11)
[2017-01-18] MEDS: ALBUTEROL SULFATE 2.5 MG/3 ML NEBU. NEB PRN (01:15)
--- NOTE | 2017-01-18 04:07 | CONS ---
DATE OF CONSULTATION: 01/17/2017 ATTENDING PHYSICIAN: Dr. Longo. REASON FOR CONSULTATION: The patient is seen in pulmonary consultation at the request of Dr. Longo for abnormal CT of the chest. HISTORY OF PRESENT ILLNESS: The patient is a 65-year-old that has a diagnosis of pulmonary fibrosis. She normally follows a load haul dump operator at [facility]. She was increasingly more short of breath over the last 5 days, went to an urgent care center. She was then referred to the Emergency Room in [place]. She was transferred from [place] to our facility. She is normally on 3-4 liters at rest and 5-6 with exertion. She has a cough productive of discolored sputum, some subjective fever, no chest pain or pressure. She denies any nausea, vomiting or diarrhea. PAST MEDICAL HISTORY: Remarkable for: 1. Pulmonary fibrosis recently diagnosed. Apparently she has not been on any of the new antifibrotic medications. 2. Chronic heart failure. 3. Hypertension. 4. Hyperlipidemia. 5. History of diabetes. PAST SURGICAL HISTORY: Status post cervical neck surgery. ALLERGIES: ADHESIVE TAPE, PREGABALIN AND SITAGLIPTIN. MEDICATIONS: List was reviewed. Please see the MRAD. REVIEW OF SYSTEMS: As indicated above, otherwise a 12-point system was reviewed and negative. CURRENT MEDICATION: List was reviewed. Please see the MRAD. She is currently on piperacillin and vancomycin. She is normally on 20 mg of prednisone a day. She has not been on prednisone for a prolonged period of time. She is currently receiving Solu-Medrol 40 IV q. 8 and bronchodilators. Otherwise, please see the MRAD for details. PHYSICAL EXAMINATION: VITAL SIGNS: On examination, the patient was in no significant respiratory distress, able to complete full sentences. O2 saturation was greater than 92% on 4 liters. HEENT: Eyes, the sclerae were nonicteric. NECK: Jugular venous distention was not elevated. No lymphadenopathy. CHEST: Full expansion. LUNGS: Coarse breath sounds with scattered rhonchi, crackles and expiratory wheeze. CARDIOVASCULAR: Regular rate and rhythm with S1, S2, no S3. ABDOMEN: Soft, nontender, nondistended. EXTREMITIES: No clubbing or cyanosis. Minimal edema. NEUROLOGIC: The patient was awake, alert, following commands. A detailed neuro exam was not performed. LABORATORY DATA: Her white count was normal, hemoglobin and hematocrit were normal, platelet count was normal. Electrolytes were noted. BUN was elevated. Creatinine was elevated. Lactic acid initially was slightly elevated at 2.1. TSH was low. IMAGING: Chest x-ray reviewed. CT of the chest was likewise reviewed. There were several findings including bilateral bronchiectasis, some fibrosis and possible superimposed pneumonia. There was also borderline mediastinal adenopathy. IMPRESSION: 1. Acute on chronic respiratory failure secondary to underlying pulmonary fibrosis, interstitial lung disease and chronic bronchiectasis. 2. Concurrent superimposed pneumonia and acute exacerbation of COPD leading to increasing shortness of breath. 3. Subjective fever at home. 4. Hypertension. 5. Hyperlipidemia. PLAN: 1. I concur with current broad-coverage antibiotics. 2. Steroids. 3. Nebulized treatments. 4. Oxygen supplementation. 5. The patient is apparently scheduled to see a load haul dump operator at [facility] for further evaluation of her underlying interstitial lung disease. When she is discharged, she will follow up at or with a load haul dump operator at [place]. I do appreciate the privilege in sharing in the patient's care. LINETTE EDWARDS MD DR: TYLER/berenice JOB#: [id number] / [id number]
[2017-01-18] MEDS: guaiFENesin/CODEINE 100mg/10mg 5 ML LIQUID PO PRN ×2 (04:13→13:40)
[2017-01-18] MEDS: VANCOMYCIN 1.5 GM in IV NORMAL SALINE 500ML BAG 500 ML IV SCH ×2 (04:13→16:21)
[2017-01-18] MEDS: ALPRAZolam 1 MG TABLET PO PRN ×2 (04:29→17:12)
[2017-01-18 04:34] LABS: BASO % 0 % (0-3); EOS % 0 % (0-3); HEMOGLOBIN 11.4 g/dL (12.0-15.5); LYMPH # 0.4 x10^3/uL (1.0-4.8); LYMPH % 7 % (24-48); MEAN CORPUSCULAR HEMOGLOBIN 32 pg (25-35); MEAN CORPUSCULAR HGB CONC 35 g/dL (31-37); MEAN CORPUSCULAR VOLUME 94 fL (79-100); MONO % 5 % (0-9); NEUT % 89 % (31-73); PLATELET COUNT 143 x10^3/uL (140-400); RED BLOOD COUNT 3.51 x10^6/uL (3.50-5.40); RED CELL DISTRIBUTION WIDTH 14.2 % (11.5-14.5); WHITE BLOOD COUNT 6.4 x10^3/uL (4.0-11.0)
[2017-01-18 04:43] LABS: CALCIUM 8.6 mg/dL (8.5-10.1); CREATININE 1.1 mg/dL (0.6-1.0); GFR 49.7; POTASSIUM 4.4 mmol/L (3.5-5.1)
[2017-01-18] MEDS: PIPERACILLIN/TAZOBACTAM 3.375 GM in IV NORMAL SALINE 50ML 50 ML IV SCH ×4 (06:34→23:09)
[2017-01-18] MEDS: DULoxetine HCL 30 MG CAPSULE.DR PO SCH ×2 (06:47→17:12)
[2017-01-18] MEDS: IPRATRPIUM/ALBUTEROL 0.5/2.5MG 3 ML NEBU. NEB SCH ×4 (07:34→19:46)
[2017-01-18] MEDS ORDERED: SERTRALINE 50 MG TABLET. PO SCH (09:00)
[2017-01-18] MEDS: PANTOPRAZOLE 40 MG TABLET.DR. PO SCH ×2 (09:32→16:25)
[2017-01-18] MEDS: OMEGA-3 FATTY ACIDS/FISH OIL 1,000 MG CAPSULE. PO SCH ×2 (09:32→22:53)
[2017-01-18] MEDS: DOCUSATE SODIUM 100 MG CAPSULE. PO SCH ×2 (09:33→22:52)
[2017-01-18] MEDS: OXYBUTYNIN CHLORIDE 5 MG TABLET PO SCH ×2 (09:33→22:53)
[2017-01-18] MEDS: CETIRIZINE HCL 10 MG TABLET. PO SCH (09:34)
[2017-01-18] MEDS: ENOXAPARIN 40 MG/0.4 ML SYRINGE. SQ SCH ×2 (09:34→22:52)
[2017-01-18] MEDS: ESCITALOPRAM 10 MG TABLET. PO SCH (09:34)
[2017-01-18] MEDS: MELOXICAM 7.5 MG TABLET PO SCH (09:42)
[2017-01-18] MEDS: VANCOMYCIN PER PHARMACY MC PRN (10:52)
[2017-01-18] MEDS: IV NORMAL SALINE 1000ML BAG 1,000 ML IV SCH (11:05)
[2017-01-18] MEDS: lamoTRIgine 100 MG TABLET. PO SCH ×2 (11:06→22:52)
[2017-01-18] MEDS: FUROSEMIDE 20 MG TABLET PO SCH (11:06)
[2017-01-18] MEDS: METOPROLOL SUCC 24HR ER 25 MG TAB.ER.24H. PO SCH (11:07)
[2017-01-18] MEDS: LISINOPRIL 2.5 MG TABLET PO SCH (11:07)
[2017-01-18] MEDS: HYDROcodone/APAP 5/325MG 1 TAB TABLET PO PRN (13:40)
--- NOTE | 2017-01-18 13:50 | PDOC ---
PROGRESS NOTES Chief Complaint Chief Complaint Shortness of breath Pneumonia, bilateral Pulmonary fibrosis CHF Hypertension Hyperlipidemia Diabetes History of Present Illness History of Present Illness Patient was lying in bed in no acute distress this am States she has a history of pulmonary fibrosis Is agreeable with current management Follows with pulm at Vitals Vitals Vital Signs Date Time Temp Pulse Resp B/P (MAP) Pulse Ox O2 Delivery O2 Flow Rate FiO2 01/18/17 13:40 98 Nasal Cannula 3.0 01/18/17 11:07 93 105/57 01/18/17 11:00 97.6 18 97.6 Physical Exam General: Alert, Oriented X3, Cooperative, No acute distress Heart: Regular rate, Normal S1, Normal S2 Lungs: Crackles (bilateral), Other (no wheezing) Abdomen: Normal bowel sounds, Soft Extremities: No clubbing, No cyanosis Skin: No rashes, No breakdown Labs LABS Laboratory Tests Test 01/17/17 15:43 01/17/17 16:35 01/17/17 20:44 01/18/17 03:40 White Blood Count 8.6 x10^3/uL (4.0-11.0) 6.4 x10^3/uL (4.0-11.0) Red Blood Count 3.67 x10^6/uL (3.50-5.40) 3.51 x10^6/uL (3.50-5.40) Hemoglobin 11.4 g/dL (12.0-15.5) 11.4 g/dL (12.0-15.5) Hematocrit 34.8 % (36.0-47.0) 33.0 % (36.0-47.0) Mean Corpuscular Volume 95 fL (79-100) 94 fL (79-100) Mean Corpuscular Hemoglobin 31 pg (25-35) 32 pg (25-35) Mean Corpuscular Hemoglobin Concent 33 g/dL (31-37) 35 g/dL (31-37) Red Cell Distribution Width 14.1 % (11.5-14.5) 14.2 % (11.5-14.5) Platelet Count 156 x10^3/uL (140-400) 143 x10^3/uL (140-400) Neutrophils (%) (Auto) 86 % (31-73) 89 % (31-73) Lymphocytes (%) (Auto) 5 % (24-48) 7 % (24-48) Monocytes (%) (Auto) 8 % (0-9) 5 % (0-9) Eosinophils (%) (Auto) 0 % (0-3) 0 % (0-3) Basophils (%) (Auto) 0 % (0-3) 0 % (0-3) Neutrophils # (Auto) 7.4 x10^3uL (1.8-7.7) 5.7 x10^3uL (1.8-7.7) Lymphocytes # (Auto) 0.5 x10^3/uL (1.0-4.8) 0.4 x10^3/uL (1.0-4.8) Monocytes # (Auto) 0.7 x10^3/uL (0.0-1.1) 0.3 x10^3/uL (0.0-1.1) Eosinophils # (Auto) 0.0 x10^3/uL (0.0-0.7) 0.0 x10^3/uL (0.0-0.7) Basophils # (Auto) 0.0 x10^3/uL (0.0-0.2) 0.0 x10^3/uL (0.0-0.2) Segmented Neutrophils % 82 % (35-66) Band Neutrophils % 5 % (0-9) Lymphocytes % 4 % (24-48) Monocytes % 9 % (0-10) Platelet Estimate Adequate (ADEQUATE) Glucose (Fingerstick) 151 mg/dL (70-99) 156 mg/dL (70-99) Sodium Level 144 mmol/L (136-145) Potassium Level 4.4 mmol/L (3.5-5.1) Chloride Level 106 mmol/L (98-107) Carbon Dioxide Level 33 mmol/L (21-32) Anion Gap 5 (6-14) Blood Urea Nitrogen 36 mg/dL (7-20) Creatinine 1.1 mg/dL (0.6-1.0) Estimated GFR (Cockcroft-Gault) 49.7 Glucose Level 145 mg/dL (70-99) Calcium Level 8.6 mg/dL (8.5-10.1) Test 01/18/17 08:10 Glucose (Fingerstick) 109 mg/dL (70-99) Review of Systems Review of Systems General: denies weakness Resp: complains of SOB Assessment and Plan Assessmemt and Plan Assessment: Shortness of breath Pneumonia, bilateral Pulmonary fibrosis CHF Hypertension Hyperlipidemia Diabetes Plan: -Pulm following- continue antibiotics -Continue steroids -Continue nebulizer treatments -Continue oxygen as needed -Recheck am labs -Monitor white count and temperature -Consider repeat cxr prior to discharge -Subspecialty input appreciated -Discharge disposition pending Problems: Comment Review of Relevant I have reviewed the following items jared (where applicable) has been applied. Labs Laboratory Tests Test 01/16/17 22:13 01/17/17 03:30 01/17/17 07:12 01/17/17 11:54 Glucose (Fingerstick) 165 mg/dL (70-99) 129 mg/dL (70-99) 131 mg/dL (70-99) White Blood Count 6.0 x10^3/uL (4.0-11.0) Red Blood Count 3.66 x10^6/uL (3.50-5.40) Hemoglobin 11.7 g/dL (12.0-15.5) Hematocrit 33.8 % (36.0-47.0) Mean Corpuscular Volume 92 fL (79-100) Mean Corpuscular Hemoglobin 32 pg (25-35) Mean Corpuscular Hemoglobin Concent 35 g/dL (31-37) Red Cell Distribution Width 14.3 % (11.5-14.5) Platelet Count 142 x10^3/uL (140-400) Neutrophils (%) (Auto) 82 % (31-73) Lymphocytes (%) (Auto) 16 % (24-48) Monocytes (%) (Auto) 3 % (0-9) Eosinophils (%) (Auto) 0 % (0-3) Basophils (%) (Auto) 0 % (0-3) Neutrophils # (Auto) 4.9 x10^3uL (1.8-7.7) Lymphocytes # (Auto) 0.9 x10^3/uL (1.0-4.8) Monocytes # (Auto) 0.2 x10^3/uL (0.0-1.1) Eosinophils # (Auto) 0.0 x10^3/uL (0.0-0.7) Basophils # (Auto) 0.0 x10^3/uL (0.0-0.2) Sodium Level 144 mmol/L (136-145) Potassium Level 3.9 mmol/L (3.5-5.1) Chloride Level 104 mmol/L (98-107) Carbon Dioxide Level 34 mmol/L (21-32) Anion Gap 6 (6-14) Blood Urea Nitrogen 32 mg/dL (7-20) Creatinine 1.1 mg/dL (0.6-1.0) Estimated GFR (Cockcroft-Gault) 49.7 Glucose Level 152 mg/dL (70-99) Lactic Acid Level 2.1 mmol/L (0.4-2.0) Calcium Level 9.0 mg/dL (8.5-10.1) Magnesium Level 2.0 mg/dL (1.8-2.4) Thyroid Stimulating Hormone (TSH) 0.229 uIU/mL (0.358-3.74) Test 01/17/17 15:43 01/17/17 16:35 01/17/17 20:44 01/18/17 03:40 White Blood Count 8.6 x10^3/uL (4.0-11.0) 6.4 x10^3/uL (4.0-11.0) Red Blood Count 3.67 x10^6/uL (3.50-5.40) 3.51 x10^6/uL (3.50-5.40) Hemoglobin 11.4 g/dL (12.0-15.5) 11.4 g/dL (12.0-15.5) Hematocrit 34.8 % (36.0-47.0) 33.0 % (36.0-47.0) Mean Corpuscular Volume 95 fL (79-100) 94 fL (79-100) Mean Corpuscular Hemoglobin 31 pg (25-35) 32 pg (25-35) Mean Corpuscular Hemoglobin Concent 33 g/dL (31-37) 35 g/dL (31-37) Red Cell Distribution Width 14.1 % (11.5-14.5) 14.2 % (11.5-14.5) Platelet Count 156 x10^3/uL (140-400) 143 x10^3/uL (140-400) Neutrophils (%) (Auto) 86 % (31-73) 89 % (31-73) Lymphocytes (%) (Auto) 5 % (24-48) 7 % (24-48) Monocytes (%) (Auto) 8 % (0-9) 5 % (0-9) Eosinophils (%) (Auto) 0 % (0-3) 0 % (0-3) Basophils (%) (Auto) 0 % (0-3) 0 % (0-3) Neutrophils # (Auto) 7.4 x10^3uL (1.8-7.7) 5.7 x10^3uL (1.8-7.7) Lymphocytes # (Auto) 0.5 x10^3/uL (1.0-4.8) 0.4 x10^3/uL (1.0-4.8) Monocytes # (Auto) 0.7 x10^3/uL (0.0-1.1) 0.3 x10^3/uL (0.0-1.1) Eosinophils # (Auto) 0.0 x10^3/uL (0.0-0.7) 0.0 x10^3/uL (0.0-0.7) Basophils # (Auto) 0.0 x10^3/uL (0.0-0.2) 0.0 x10^3/uL (0.0-0.2) Segmented Neutrophils % 82 % (35-66) Band Neutrophils % 5 % (0-9) Lymphocytes % 4 % (24-48) Monocytes % 9 % (0-10) Platelet Estimate Adequate (ADEQUATE) Glucose (Fingerstick) 151 mg/dL (70-99) 156 mg/dL (70-99) Sodium Level 144 mmol/L (136-145) Potassium Level 4.4 mmol/L (3.5-5.1) Chloride Level 106 mmol/L (98-107) Carbon Dioxide Level 33 mmol/L (21-32) Anion Gap 5 (6-14) Blood Urea Nitrogen 36 mg/dL (7-20) Creatinine 1.1 mg/dL (0.6-1.0) Estimated GFR (Cockcroft-Gault) 49.7 Glucose Level 145 mg/dL (70-99) Calcium Level 8.6 mg/dL (8.5-10.1) Test 01/18/17 08:10 Glucose (Fingerstick) 109 mg/dL (70-99) Laboratory Tests Test 01/17/17 15:43 01/17/17 16:35 01/17/17 20:44 01/18/17 03:40 White Blood Count 8.6 x10^3/uL (4.0-11.0) 6.4 x10^3/uL (4.0-11.0) Red Blood Count 3.67 x10^6/uL (3.50-5.40) 3.51 x10^6/uL (3.50-5.40) Hemoglobin 11.4 g/dL (12.0-15.5) 11.4 g/dL (12.0-15.5) Hematocrit 34.8 % (36.0-47.0) 33.0 % (36.0-47.0) Mean Corpuscular Volume 95 fL (79-100) 94 fL (79-100) Mean Corpuscular Hemoglobin 31 pg (25-35) 32 pg (25-35) Mean Corpuscular Hemoglobin Concent 33 g/dL (31-37) 35 g/dL (31-37) Red Cell Distribution Width 14.1 % (11.5-14.5) 14.2 % (11.5-14.5) Platelet Count 156 x10^3/uL (140-400) 143 x10^3/uL (140-400) Neutrophils (%) (Auto) 86 % (31-73) 89 % (31-73) Lymphocytes (%) (Auto) 5 % (24-48) 7 % (24-48) Monocytes (%) (Auto) 8 % (0-9) 5 % (0-9) Eosinophils (%) (Auto) 0 % (0-3) 0 % (0-3) Basophils (%) (Auto) 0 % (0-3) 0 % (0-3) Neutrophils # (Auto) 7.4 x10^3uL (1.8-7.7) 5.7 x10^3uL (1.8-7.7) Lymphocytes # (Auto) 0.5 x10^3/uL (1.0-4.8) 0.4 x10^3/uL (1.0-4.8) Monocytes # (Auto) 0.7 x10^3/uL (0.0-1.1) 0.3 x10^3/uL (0.0-1.1) Eosinophils # (Auto) 0.0 x10^3/uL (0.0-0.7) 0.0 x10^3/uL (0.0-0.7) Basophils # (Auto) 0.0 x10^3/uL (0.0-0.2) 0.0 x10^3/uL (0.0-0.2) Segmented Neutrophils % 82 % (35-66) Band Neutrophils % 5 % (0-9) Lymphocytes % 4 % (24-48) Monocytes % 9 % (0-10) Platelet Estimate Adequate (ADEQUATE) Glucose (Fingerstick) 151 mg/dL (70-99) 156 mg/dL (70-99) Sodium Level 144 mmol/L (136-145) Potassium Level 4.4 mmol/L (3.5-5.1) Chloride Level 106 mmol/L (98-107) Carbon Dioxide Level 33 mmol/L (21-32) Anion Gap 5 (6-14) Blood Urea Nitrogen 36 mg/dL (7-20) Creatinine 1.1 mg/dL (0.6-1.0) Estimated GFR (Cockcroft-Gault) 49.7 Glucose Level 145 mg/dL (70-99) Calcium Level 8.6 mg/dL (8.5-10.1) Test 01/18/17 08:10 Glucose (Fingerstick) 109 mg/dL (70-99) Medications Current Medications Sodium Chloride 1,000 ml @ 60 mls/hr [id number] IV Last administered on t 11:05; Start 01/16/17 at 23:00 Ondansetron HCl (Zofran) 4 mg PRN Q6HRS PRN IV NAUSEA/VOMITING; Start 01/16/17 at 23:00; Stop 01/17/17 at 13:31; Status DC Oxycodone HCl (Roxicodone) 10 mg PRN Q8HRS PRN PO SEVERE PAIN; Start 01/16/17 at 23:00 Acetaminophen (Tylenol) 650 mg PRN Q6HRS PRN PO Headaches, Temp > 101.5F; Start 01/16/17 at 22:45; Stop 01/17/17 at 10:06; Status DC Docusate Sodium (Colace) 100 mg BID PO ; Start 01/17/17 at 09:00; Stop 01/17/17 at 13:31; Status DC Enoxaparin Sodium (Lovenox 40mg Syringe) 40 mg Q24H SQ Last administered on 00:33; Start 01/16/17 at 23:00; Stop 01/17/17 at 10:01; Status DC Hydrocortisone Sodium Succinate (Solu-CORTEF) 60 mg Q12HR IV Last administered on 01/17/17 09:42; Start 01/17/17 at 09:00; Stop 01/17/17 at 13:29; Status DC Famotidine (Pepcid) 20 mg QHS PO ; Start 01/17/17 at 21:00; Stop 01/17/17 at 21: 00; Status DC Albuterol/ Ipratropium (Duoneb) 3 ml RTQID NEB Last administered on 01/18/17 11:24; Start 01/17/17 at 08:00 Alprazolam (Xanax) 1 mg PRN Q8HRS PRN PO ANXIETY / AGITATION Last administered on 01/18/17 04:29; Start 01/17/17 at 00:15 Albuterol/ Ipratropium (Duoneb) 3 ml 1X ONCE NEB Last administered on 02:49; Start 01/17/17 at 02:45; Stop 01/17/17 at 02:46; Status DC Guaifenesin (Robitussin Dm) 10 ml PRN Q6HRS PRN PO COUGH Last administered on 11:09; Start 01/17/17 at 02:45 Enoxaparin Sodium (Lovenox 40mg Syringe) 40 mg BID SQ Last administered on 01/18 09:34; Start 01/17/17 at 21:00 Acetaminophen (Tylenol) 325 mg PRN Q6HRS PRN PO MILD PAIN / TEMP; Start at 10:15 Acetaminophen/ Hydrocodone Bitart (Lortab 5/325) 1 tab PRN Q6HRS PRN PO MODERATE PAIN Last administered on 01/18/17 13:40; Start 01/17/17 at 10:15 Hydralazine HCl (Apresoline) 10 mg PRN Q4HRS PRN IVP ELEVATED BP, SEE COMMENTS ; Start 01/17/17 at 10:15 Ondansetron HCl (Zofran) 4 mg PRN Q8HRS PRN IV NAUSEA/VOMITING; Start 01/17/17 at 10:15 Albuterol Sulfate (Ventolin Neb Soln) 2.5 mg PRN Q4HRS PRN NEB SHORTNESS OF BREATH Last administered on 01/18/17 01:15; Start 01/17/17 at 10:15 Methylprednisolone Sodium Succinate (SOLU-Medrol 40MG VIAL) 40 mg Q8HRS IV Last administered on 01/17/17 21:04; Start 01/17/17 at 14:00; Stop 01/17/17 at 21:53; Status DC Piperacillin Sod/ Tazobactam Sod 3.375 gm/Sodium Chloride 50 ml @ 100 mls/hr Q6HRS IV Last administered on 01/18/17 11:07; Start 01/17/17 at 18:00 Levofloxacin/ Dextrose 150 ml @ 100 mls/hr Q24H IV Last administered on 13:33; Start 01/17/17 at 13:30 Vancomycin HCl (Vanco Per Pharmacy) 1 each PRN DAILY PRN MC SEE COMMENTS Last administered on 01/18/17 10:52; Start 01/17/17 at 13:15 Guaifenesin/ Codeine Phosphate (Robitussin Ac) 5 ml PRN Q6HRS PRN PO COUGH Last administered on 01/18/17 13:40; Start 01/17/17 at 13:15 Vancomycin HCl 2 gm/Sodium Chloride 500 ml @ 250 mls/hr 1X ONCE IV Last administered on 01/17/17 15:21; Start 01/17/17 at 13:30; Stop 01/17/17 at 15:29 ; Status DC Docusate Sodium (Colace) 100 mg BID PO Last administered on 01/18/17 09:33; Start 01/17/17 at 21:00 Furosemide (Lasix) 20 mg DAILY PO Last administered on 01/18/17 11:06; Start 01/17/17 at 14:00 Lisinopril (Prinivil) 2.5 mg DAILY PO Last administered on 01/18/17 11:07; Start 01/17/17 at 14:00 Metoprolol Succinate (Toprol Xl) 25 mg DAILY PO Last administered on 01/18/17 11:07; Start 01/17/17 at 14:00 Montelukast Sodium (Singulair) 10 mg HS PO Last administered on 01/17/17 21:03 ; Start 01/17/17 at 21:00 Oxybutynin Chloride (Ditropan) 5 mg BID PO Last administered on 01/18/17 09:33 ; Start 01/17/17 at 14:00 Pantoprazole Sodium (Protonix) 40 mg BIDAC PO Last administered on 01/18/17 09 :32; Start 01/17/17 at 16:30 Senna/Docusate Sodium (Senna Plus) 1 tab QHS PO Last administered on 01/17/17 21:03; Start 01/17/17 at 21:00 Alprazolam (Xanax) 3 mg QHS PO Last administered on 01/17/17 21:03; Start at 21:00 Lactobacillus Acidophilus (Bacid, Jodi-Bid) 2 tab QHS PO Last administered on 21:03; Start 01/17/17 at 21:00 Duloxetine HCl (Cymbalta) 60 mg [id number] PO Last administered on 01/18/17 06:47; Start 01/17/17 at 18:00 Escitalopram Oxalate (Lexapro) 20 mg DAILY PO Last administered on 01/18/17 09 :34; Start 01/18/17 at 09:00 Famotidine (Pepcid) 40 mg QHS PO Last administered on 01/17/17 21:03; Start at 21:00 Lamotrigine (LaMICtal) 200 mg BID PO Last administered on 01/18/17 11:06; Start 01/17/17 at 21:00 Cetirizine HCl (ZyrTEC) 10 mg DAILY PO Last administered on 01/18/17 09:34; Start 01/18/17 at 09:00 Meloxicam (Mobic) 15 mg DAILY PO Last administered on 01/18/17 09:42; Start at 14:00 Fish Oil (Fish Oil) 1,000 mg BID PO Last administered on 01/18/17 09:32; Start 01/17/17 at 21:00 Oxycodone HCl (Roxicodone) 20 mg PRN TID PRN PO PAIN Last administered on 01:11; Start 01/17/17 at 13:45 Oxycodone HCl (Roxicodone) 40 mg PRN TID PRN PO PAIN; Start 01/17/17 at 13:45 Sertraline HCl (Zoloft) 200 mg DAILY PO ; Start 01/18/17 at 09:00; Status Cancel Vancomycin HCl 1.5 gm/Sodium Chloride 500 ml @ 250 mls/hr Q12H IV Last administered on 01/18/17 04:13; Start 01/18/17 at 04:00 Vancomycin HCl 1 each 1X ONCE MC ; Start 01/19/17 at 03:30; Stop 01/19/17 at 03 :31 Active Scripts Active Reported Oxycodone Hcl 10 Mg Tablet 20 Mg PO TID PRN Symbicort 160-4.5 Mcg Inhaler (Budesonide/Formoterol Fumarate) 10.2 Gm Hfa.aer.ad 2 Puff IH BID Alprazolam 2 Mg Tablet 1.5 Tab PO QHS Senna Plus Tablet (Sennosides/Docusate Sodium) 1 Each Tablet 1 Each PO QHS Prednisone 20 Mg Tablet 1 Tab PO DAILY Lisinopril 2.5 Mg Tablet 1 Tab PO DAILY Lamotrigine 200 Mg Tablet 1 Tab PO BID Furosemide 20 Mg Tablet 1 Tab PO DAILY Famotidine 40 Mg Tablet 40 Mg PO HS Lexapro (Escitalopram Oxalate) 20 Mg Tablet 25 Mg PO DAILY Phentermine Hcl 37.5 Mg Tablet 1 Tab PO PRN BID PRN Actonel (Risedronate Sodium) 150 Mg Tablet 1 Tab PO QMONTH Miralax (Polyethylene Glycol 3350) 17 Gm Powd.pack 1 Packet PO DAILY PRN Olopatadine HCl 30.5 Gm [place].pump 30.5 Gm NS DAILY Flonase Allergy Relief (Fluticasone Propionate) 9.9 Ml [place].susp 1 Sprays NS BID FENTANYL 100mcg/hr (Fentanyl) 1 Each Patch.td72 1 Patch TD Q72H Proair Hfa Inhaler (Albuterol Sulfate) 8.5 Gm Hfa.aer.ad 2 Puff INH QID PRN Holmes-3 (Holmes-3 Fatty Acids) 1,000 Mg Capsule 1,000 Mg PO BID Multi-Vitamin Daily (Multivitamin) 1 Each Tablet 1 Each PO Glucosamine 1,500 Complex Cp (Gluc Becerril/Chondro Becerril A/Vit C/Mn) 1 Each Capsule 1 Each PO BID Calcium Carbonate 600 Mg Tablet 600 Mg PO BID Zoloft (Sertraline Hcl) 100 Mg Tablet 2 Tab PO DAILY Protonix (Pantoprazole Sodium) 40 Mg Tablet.dr 1 Tab PO BID Oxycodone Hcl 20 Mg Tablet 40 Mg PO TID PRN Oxybutynin Chloride 5 Mg Tablet 1 Tab PO BID Montelukast Sodium Tablet (Montelukast Sodium) 10 Mg Tablet 10 Mg PO HS Metoprolol Succinate ( Xl ) (Metoprolol Succinate) 25 Mg Tab.er.24h 1 Tab PO DAILY Mobic (Meloxicam) 15 Mg Tablet 1 Tab PO DAILY Loratadine 10 Mg Tablet 1 Tab PO DAILY Cymbalta (Duloxetine Hcl) 60 Mg Capsule.dr 1 Cap PO [id number] Colace (Docusate Sodium) 100 Mg Capsule 1 Cap PO BID Alprazolam 1 Mg Tablet 1 Tab PO TID Align (Bifidobacterium Infantis) 4 Mg Capsule 4 Mg PO HS Vitals/I & O Vital Sign - Last 24 Hours 01/17/17 01/17/17 01/17/17 01/17/17 15:00 15:45 18:29 19:20 Temp 97.9 97.9 Pulse 100 Resp 18 B/P (MAP) 101/55 (70) Pulse Ox 95 95 96 O2 Delivery Nasal Cannula Nasal Cannula Nasal Cannula Nasal Cannula O2 Flow Rate 4.0 4.0 4.0 4.0 01/17/17 01/17/17 01/17/17 01/17/17 19:29 19:40 19:58 23:40 Temp 98.6 98.3 98.6 98.3 Pulse 89 79 Resp 20 18 B/P (MAP) 103/55 (71) 126/63 (84) Pulse Ox 96 96 99 O2 Delivery Nasal Cannula Nasal Cannula Nasal Cannula Nasal Cannula O2 Flow Rate 4.0 4.0 4.0 4.0 5/01/18/17 01/18/17 01/18/17 01:11 02:11 03:40 07:00 Temp 98.3 97.4 98.3 97.4 Pulse 84 77 Resp 18 18 B/P (MAP) 108/70 (83) 97/54 (68) Pulse Ox 99 99 97 97 O2 Delivery Nasal Cannula Nasal Cannula Nasal Cannula Nasal Cannula O2 Flow Rate 4.0 4.0 4.0 4.0 01/18/17 01/18/17 01/18/17 01/18/17 07:36 08:26 11:00 11:07 Temp 97.6 97.6 Pulse 99 93 Resp 18 B/P (MAP) 105/57 (73) 105/57 Pulse Ox 97 92 O2 Delivery Nasal Cannula Nasal Cannula Nasal Cannula O2 Flow Rate 4.0 4.0 4.0 01/18/17 01/18/17 01/18/17 11:07 11:24 13:40 Pulse 93 B/P (MAP) 105/57 Pulse Ox 98 98 O2 Delivery Nasal Cannula Nasal Cannula O2 Flow Rate 3.0 3.0 Intake and Output 01/17/17 01/17/17 01/18/17 15:00 23:00 07:00 Intake Total 1180 ml 950 ml Output Total 200 ml 400 ml Balance 980 ml 550 ml JASSI TOM III DO January 18, 2017 13:50
--- NOTE | 2017-01-18 14:51 | PDOC ---
PULMONARY PROGRESS NOTES Subjective PT STILL SOA Vitals Vital Signs Date Time Temp Pulse Resp B/P (MAP) Pulse Ox O2 Delivery O2 Flow Rate FiO2 01/18/17 13:40 98 Nasal Cannula 3.0 01/18/17 11:07 93 105/57 01/18/17 11:00 97.6 18 97.6 ROS: No Nausea, No Chest Pain, No Abdominal Pain, No Increase Cough Lungs: Crackles (bilateral) Cardiovascular: S1, S2 Abdomen: Soft Neuro Exam: Alert Extremities: No Edema Skin: Warm Labs Laboratory Tests Test 01/16/17 22:13 01/17/17 03:30 01/17/17 07:12 01/17/17 11:54 Glucose (Fingerstick) 165 mg/dL (70-99) 129 mg/dL (70-99) 131 mg/dL (70-99) White Blood Count 6.0 x10^3/uL (4.0-11.0) Red Blood Count 3.66 x10^6/uL (3.50-5.40) Hemoglobin 11.7 g/dL (12.0-15.5) Hematocrit 33.8 % (36.0-47.0) Mean Corpuscular Volume 92 fL (79-100) Mean Corpuscular Hemoglobin 32 pg (25-35) Mean Corpuscular Hemoglobin Concent 35 g/dL (31-37) Red Cell Distribution Width 14.3 % (11.5-14.5) Platelet Count 142 x10^3/uL (140-400) Neutrophils (%) (Auto) 82 % (31-73) Lymphocytes (%) (Auto) 16 % (24-48) Monocytes (%) (Auto) 3 % (0-9) Eosinophils (%) (Auto) 0 % (0-3) Basophils (%) (Auto) 0 % (0-3) Neutrophils # (Auto) 4.9 x10^3uL (1.8-7.7) Lymphocytes # (Auto) 0.9 x10^3/uL (1.0-4.8) Monocytes # (Auto) 0.2 x10^3/uL (0.0-1.1) Eosinophils # (Auto) 0.0 x10^3/uL (0.0-0.7) Basophils # (Auto) 0.0 x10^3/uL (0.0-0.2) Sodium Level 144 mmol/L (136-145) Potassium Level 3.9 mmol/L (3.5-5.1) Chloride Level 104 mmol/L (98-107) Carbon Dioxide Level 34 mmol/L (21-32) Anion Gap 6 (6-14) Blood Urea Nitrogen 32 mg/dL (7-20) Creatinine 1.1 mg/dL (0.6-1.0) Estimated GFR (Cockcroft-Gault) 49.7 Glucose Level 152 mg/dL (70-99) Lactic Acid Level 2.1 mmol/L (0.4-2.0) Calcium Level 9.0 mg/dL (8.5-10.1) Magnesium Level 2.0 mg/dL (1.8-2.4) Thyroid Stimulating Hormone (TSH) 0.229 uIU/mL (0.358-3.74) Test 01/17/17 15:43 01/17/17 16:35 01/17/17 20:44 01/18/17 03:40 White Blood Count 8.6 x10^3/uL (4.0-11.0) 6.4 x10^3/uL (4.0-11.0) Red Blood Count 3.67 x10^6/uL (3.50-5.40) 3.51 x10^6/uL (3.50-5.40) Hemoglobin 11.4 g/dL (12.0-15.5) 11.4 g/dL (12.0-15.5) Hematocrit 34.8 % (36.0-47.0) 33.0 % (36.0-47.0) Mean Corpuscular Volume 95 fL (79-100) 94 fL (79-100) Mean Corpuscular Hemoglobin 31 pg (25-35) 32 pg (25-35) Mean Corpuscular Hemoglobin Concent 33 g/dL (31-37) 35 g/dL (31-37) Red Cell Distribution Width 14.1 % (11.5-14.5) 14.2 % (11.5-14.5) Platelet Count 156 x10^3/uL (140-400) 143 x10^3/uL (140-400) Neutrophils (%) (Auto) 86 % (31-73) 89 % (31-73) Lymphocytes (%) (Auto) 5 % (24-48) 7 % (24-48) Monocytes (%) (Auto) 8 % (0-9) 5 % (0-9) Eosinophils (%) (Auto) 0 % (0-3) 0 % (0-3) Basophils (%) (Auto) 0 % (0-3) 0 % (0-3) Neutrophils # (Auto) 7.4 x10^3uL (1.8-7.7) 5.7 x10^3uL (1.8-7.7) Lymphocytes # (Auto) 0.5 x10^3/uL (1.0-4.8) 0.4 x10^3/uL (1.0-4.8) Monocytes # (Auto) 0.7 x10^3/uL (0.0-1.1) 0.3 x10^3/uL (0.0-1.1) Eosinophils # (Auto) 0.0 x10^3/uL (0.0-0.7) 0.0 x10^3/uL (0.0-0.7) Basophils # (Auto) 0.0 x10^3/uL (0.0-0.2) 0.0 x10^3/uL (0.0-0.2) Segmented Neutrophils % 82 % (35-66) Band Neutrophils % 5 % (0-9) Lymphocytes % 4 % (24-48) Monocytes % 9 % (0-10) Platelet Estimate Adequate (ADEQUATE) Glucose (Fingerstick) 151 mg/dL (70-99) 156 mg/dL (70-99) Sodium Level 144 mmol/L (136-145) Potassium Level 4.4 mmol/L (3.5-5.1) Chloride Level 106 mmol/L (98-107) Carbon Dioxide Level 33 mmol/L (21-32) Anion Gap 5 (6-14) Blood Urea Nitrogen 36 mg/dL (7-20) Creatinine 1.1 mg/dL (0.6-1.0) Estimated GFR (Cockcroft-Gault) 49.7 Glucose Level 145 mg/dL (70-99) Calcium Level 8.6 mg/dL (8.5-10.1) Test 01/18/17 08:10 Glucose (Fingerstick) 109 mg/dL (70-99) Laboratory Tests Test 01/17/17 15:43 01/17/17 16:35 01/17/17 20:44 01/18/17 03:40 White Blood Count 8.6 x10^3/uL (4.0-11.0) 6.4 x10^3/uL (4.0-11.0) Red Blood Count 3.67 x10^6/uL (3.50-5.40) 3.51 x10^6/uL (3.50-5.40) Hemoglobin 11.4 g/dL (12.0-15.5) 11.4 g/dL (12.0-15.5) Hematocrit 34.8 % (36.0-47.0) 33.0 % (36.0-47.0) Mean Corpuscular Volume 95 fL (79-100) 94 fL (79-100) Mean Corpuscular Hemoglobin 31 pg (25-35) 32 pg (25-35) Mean Corpuscular Hemoglobin Concent 33 g/dL (31-37) 35 g/dL (31-37) Red Cell Distribution Width 14.1 % (11.5-14.5) 14.2 % (11.5-14.5) Platelet Count 156 x10^3/uL (140-400) 143 x10^3/uL (140-400) Neutrophils (%) (Auto) 86 % (31-73) 89 % (31-73) Lymphocytes (%) (Auto) 5 % (24-48) 7 % (24-48) Monocytes (%) (Auto) 8 % (0-9) 5 % (0-9) Eosinophils (%) (Auto) 0 % (0-3) 0 % (0-3) Basophils (%) (Auto) 0 % (0-3) 0 % (0-3) Neutrophils # (Auto) 7.4 x10^3uL (1.8-7.7) 5.7 x10^3uL (1.8-7.7) Lymphocytes # (Auto) 0.5 x10^3/uL (1.0-4.8) 0.4 x10^3/uL (1.0-4.8) Monocytes # (Auto) 0.7 x10^3/uL (0.0-1.1) 0.3 x10^3/uL (0.0-1.1) Eosinophils # (Auto) 0.0 x10^3/uL (0.0-0.7) 0.0 x10^3/uL (0.0-0.7) Basophils # (Auto) 0.0 x10^3/uL (0.0-0.2) 0.0 x10^3/uL (0.0-0.2) Segmented Neutrophils % 82 % (35-66) Band Neutrophils % 5 % (0-9) Lymphocytes % 4 % (24-48) Monocytes % 9 % (0-10) Platelet Estimate Adequate (ADEQUATE) Glucose (Fingerstick) 151 mg/dL (70-99) 156 mg/dL (70-99) Sodium Level 144 mmol/L (136-145) Potassium Level 4.4 mmol/L (3.5-5.1) Chloride Level 106 mmol/L (98-107) Carbon Dioxide Level 33 mmol/L (21-32) Anion Gap 5 (6-14) Blood Urea Nitrogen 36 mg/dL (7-20) Creatinine 1.1 mg/dL (0.6-1.0) Estimated GFR (Cockcroft-Gault) 49.7 Glucose Level 145 mg/dL (70-99) Calcium Level 8.6 mg/dL (8.5-10.1) Test 01/18/17 08:10 Glucose (Fingerstick) 109 mg/dL (70-99) Medications Active Scripts Medications Dose Route/Sig Max Daily Dose Days Date Category Oxycodone Hcl 10 Mg Tablet 20 Mg PO TID PRN 01/17/17 Reported Symbicort 160-4.5 Mcg Inhaler (Budesonide/Formoterol Fumarate) 10.2 Gm Hfa.aer.ad 2 Puff IH BID 01/17/17 Reported Alprazolam 2 Mg Tablet 1.5 Tab PO QHS 01/17/17 Reported Senna Plus Tablet (Sennosides/Docusate Sodium) 1 Each Tablet 1 Each PO QHS 01/17/17 Reported Prednisone 20 Mg Tablet 1 Tab PO DAILY 01/17/17 Reported Lisinopril 2.5 Mg Tablet 1 Tab PO DAILY 01/17/17 Reported Lamotrigine 200 Mg Tablet 1 Tab PO BID 01/17/17 Reported Furosemide 20 Mg Tablet 1 Tab PO DAILY 01/17/17 Reported Famotidine 40 Mg Tablet 40 Mg PO HS 01/17/17 Reported Lexapro (Escitalopram Oxalate) 20 Mg Tablet 25 Mg PO DAILY 01/17/17 Reported Phentermine Hcl 37.5 Mg Tablet 1 Tab PO PRN BID PRN 08/21/16 Reported Actonel (Risedronate Sodium) 150 Mg Tablet 1 Tab PO QMONTH 08/21/16 Reported Miralax (Polyethylene Glycol 3350) 17 Gm Powd.pack 1 Packet PO DAILY PRN 08/21/16 Reported Olopatadine HCl 30.5 Gm Hartman.pump 30.5 Gm NS DAILY 08/21/16 Reported Flonase Allergy Relief (Fluticasone Propionate) 9.9 Ml Hartman.susp 1 Sprays NS BID 08/21/16 Reported FENTANYL 100mcg/hr (Fentanyl) 1 Each Patch.td72 1 Patch TD Q72H 08/21/16 Reported Proair Hfa Inhaler (Albuterol Sulfate) 8.5 Gm Hfa.aer.ad 2 Puff INH QID PRN 08/21/16 Reported [place]-3 ([place]-3 Fatty Acids) 1,000 Mg Capsule 1,000 Mg PO BID 08/21/16 Reported Multi-Vitamin Daily (Multivitamin) 1 Each Tablet 1 Each PO 08/21/16 Reported Glucosamine 1,500 Complex Cp (Gluc Becerril/Chondro Becerril A/Vit C/Mn) 1 Each Capsule 1 Each PO BID 08/21/16 Reported Calcium Carbonate 600 Mg Tablet 600 Mg PO BID 08/21/16 Reported Zoloft (Sertraline Hcl) 100 Mg Tablet 2 Tab PO DAILY 08/21/16 Reported Protonix (Pantoprazole Sodium) 40 Mg Tablet.dr 1 Tab PO BID 08/21/16 Reported Oxycodone Hcl 20 Mg Tablet 40 Mg PO TID PRN 08/21/16 Reported Oxybutynin Chloride 5 Mg Tablet 1 Tab PO BID 08/21/16 Reported Montelukast Sodium Tablet (Montelukast Sodium) 10 Mg Tablet 10 Mg PO HS 08/21/16 Reported Metoprolol Succinate ( Xl ) (Metoprolol Succinate) 25 Mg Tab.er.24h 1 Tab PO DAILY 08/21/16 Reported Mobic (Meloxicam) 15 Mg Tablet 1 Tab PO DAILY 08/21/16 Reported Loratadine 10 Mg Tablet 1 Tab PO DAILY 08/21/16 Reported Cymbalta (Duloxetine Hcl) 60 Mg Capsule.dr 1 Cap PO BID76 08/21/16 Reported Colace (Docusate Sodium) 100 Mg Capsule 1 Cap PO BID 08/21/16 Reported Alprazolam 1 Mg Tablet 1 Tab PO TID 08/21/16 Reported Align (Bifidobacterium Infantis) 4 Mg Capsule 4 Mg PO HS 08/21/16 Reported Impression . 1. Acute on chronic respiratory failure secondary to underlying pulmonary fibrosis, interstitial lung disease and chronic bronchiectasis. 2. Concurrent superimposed pneumonia and acute exacerbation of COPD leading to increasing shortness of breath. 3. Subjective fever at home. 4. Hypertension. 5. Hyperlipidemia. Plan . CONTINUE THE SAME SLOW TO IMPROVE 1. I concur with current broad-coverage antibiotics. 2. Steroids. 3. Nebulized treatments. 4. Oxygen supplementation. 5. The patient is apparently scheduled to see a online tutor at [facility] for further evaluation of her underlying interstitial lung disease. When she is discharged, she will follow up at or with a online tutor at [place]. LINETTE EDWARDS MD January 18, 2017 14:51
[2017-01-18] MEDS: LACTOBACILLUS ACIDOPH & BULGAR 1 TABLET. PO SCH (22:53)
[2017-01-18] MEDS: SENNOSIDES/DOCUSATE 8.6/50MG TABLET. PO SCH (22:53)
[2017-01-18] MEDS: FAMOTIDINE 20 MG TABLET. PO SCH (22:53)
[2017-01-18] MEDS: MONTELUKAST SODIUM 10 MG TABLET. PO SCH (22:53)
[2017-01-18] MEDS: ALPRAZolam 1 MG TABLET PO SCH (22:54)
[2017-01-19] VITALS (8 sets, daily range): BP systolic 79–126; BP diastolic 30–72
[2017-01-19 04:25] LABS: BASO % 0 % (0-3); EOS % 2 % (0-3); HEMATOCRIT 32.8 % (36.0-47.0); HEMOGLOBIN 10.7 g/dL (12.0-15.5); LYMPH # 1.5 x10^3/uL (1.0-4.8); LYMPH % 16 % (24-48); MEAN CORPUSCULAR HEMOGLOBIN 31 pg (25-35); MEAN CORPUSCULAR HGB CONC 33 g/dL (31-37); MEAN CORPUSCULAR VOLUME 95 fL (79-100); MONO % 9 % (0-9); NEUT % 73 % (31-73); PLATELET COUNT 146 x10^3/uL (140-400); RED BLOOD COUNT 3.44 x10^6/uL (3.50-5.40); WHITE BLOOD COUNT 9.4 x10^3/uL (4.0-11.0)
[2017-01-19 04:47] LABS: CALCIUM 8.3 mg/dL (8.5-10.1); CREATININE 1.3 mg/dL (0.6-1.0); POTASSIUM 4.4 mmol/L (3.5-5.1)
[2017-01-19] MEDS: VANCOMYCIN PER PHARMACY MC PRN ×2 (05:06→09:38)
[2017-01-19] MEDS: PIPERACILLIN/TAZOBACTAM 3.375 GM in IV NORMAL SALINE 50ML 50 ML IV SCH ×4 (06:22→23:19)
[2017-01-19] MEDS: IV NORMAL SALINE 1000ML BAG 1,000 ML IV SCH ×2 (06:26→17:40)
[2017-01-19] MEDS: IPRATRPIUM/ALBUTEROL 0.5/2.5MG 3 ML NEBU. NEB SCH ×4 (07:15→20:04)
[2017-01-19] MEDS: ALPRAZolam 1 MG TABLET PO PRN (08:08)
[2017-01-19] MEDS: OMEGA-3 FATTY ACIDS/FISH OIL 1,000 MG CAPSULE. PO SCH ×2 (08:09→20:09)
[2017-01-19] MEDS: OXYBUTYNIN CHLORIDE 5 MG TABLET PO SCH ×2 (08:10→20:10)
[2017-01-19] MEDS: PANTOPRAZOLE 40 MG TABLET.DR. PO SCH ×2 (08:10→17:47)
[2017-01-19] MEDS: DULoxetine HCL 30 MG CAPSULE.DR PO SCH ×2 (08:10→17:47)
[2017-01-19] MEDS: lamoTRIgine 100 MG TABLET. PO SCH ×2 (08:11→20:09)
[2017-01-19] MEDS: ESCITALOPRAM 10 MG TABLET. PO SCH (08:11)
[2017-01-19] MEDS: MELOXICAM 7.5 MG TABLET PO SCH (08:12)
[2017-01-19] MEDS: ALBUTEROL SULFATE 2.5 MG/3 ML NEBU. NEB PRN (08:29)
[2017-01-19] MEDS: FUROSEMIDE 20 MG TABLET PO SCH (09:00)
[2017-01-19] MEDS: METOPROLOL SUCC 24HR ER 25 MG TAB.ER.24H. PO SCH (09:00)
[2017-01-19] MEDS: LISINOPRIL 2.5 MG TABLET PO SCH (09:00)
[2017-01-19] MEDS: DOCUSATE SODIUM 100 MG CAPSULE. PO SCH ×2 (09:00→20:09)
[2017-01-19] MEDS: CETIRIZINE HCL 10 MG TABLET. PO SCH (09:35)
[2017-01-19] MEDS: guaiFENesin DM 200MG/20MG 10 ML SYRUP PO PRN ×2 (09:35→20:25)
[2017-01-19] MEDS: ENOXAPARIN 40 MG/0.4 ML SYRINGE. SQ SCH ×2 (09:35→20:11)
--- NOTE | 2017-01-19 11:03 | PDOC2 ---
JEISON DAWKINS EMBOSSING UNIT OPERATOR 01/19/17 1103: CARDIAC CONSULT DATE OF CONSULT Date of Consult DATE: 01/19/17 TIME: 10:50 REASON FOR CONSULT Reason for Consult: CHF REFERRING PHYSICIAN Referring Physician: Dr. Harper SOURCE Source: Chart review, Patient HISTORY OF PRESENT ILLNESS HISTORY OF PRESENT ILLNESS This is a 66 yo female, with a history of pulmonary fibrosis with chronic oxygen use, hypertension, and hyperlipidemia, who presented with complaints of shortness of breath. Symptoms have been ongoing for the last 5-6 days. Associated with productive cough. Luis any significant LE, orthopnea, chest pain, palpitations, dizziness, or diaphoresis. No sick contacts. PAST MEDICAL HISTORY Cardiovascular: HTN, Hyperlipidemia Pulmonary: COPD, Other (pulmonary fibrosis; 3-4L NC) Musculoskeletal: low back pain, Osteoarthritis Endocrine: Osteoporosis PAST SURGICAL HISTORY Past Surgical History: Appendectomy, Tonsillectomy, Hysterectomy, Other ( mastectomy ) SOCIAL HISTORY Smoke: No ALCOHOL: none Drugs: None Lives: with Family CURRENT MEDICATIONS CURRENT MEDICATIONS Current Medications Medications (Trade) Dose Ordered Sig/Esau Route PRN Reason Start Time Stop Time Status Last Admin Dose Admin Vancomycin HCl 1 each 1X ONCE MC 01/19/17 03:30 01/19/17 03:31 DC 01/19/17 03:30 ALLERGIES ALLERGIES: Coded Allergies: pregabalin (Verified Allergy, Severe, SWELLING, WEIGHT GAIN, 11/23/15) sitagliptin (Verified Allergy, Severe, "I BOTTOM OUT LIKE A DIABETIC", ) Sulfa (Sulfonamide Antibiotics) (Verified Allergy, Intermediate, RASH, ) adhesive (Verified Allergy, Intermediate, BLISTERS, RASH, 11/23/15) ROS Review of System 14 point ROS conducted with pertinent positives noted above in HPI. PHYSICAL EXAM General: Alert, Oriented X3, Cooperative, mild distress HEENT: Atraumatic, Mucous membr. moist/pink Lungs: Other (coarse throughout with fine expiratory wheezes) Heart: Regular rate, Normal S1, Normal S2, Other (2/6 systolic murmur ) Abdomen: Soft, No tenderness Extremities: No edema, Normal pulses Skin: No breakdown, No significant lesion Neuro: Normal speech, Sensation intact Psych/Mental Status: Mental status NL, Other (drowsy ) MUSCULOSKELETAL: Osteoarthritic changes both hands VITALS VITALS Vital Signs Date Time Temp Pulse Resp B/P (MAP) Pulse Ox O2 Delivery O2 Flow Rate FiO2 01/19/17 08:33 Nasal Cannula 3.0 01/19/17 07:16 97 01/19/17 07:11 97.4 68 18 96/57 (70) 97.4 LABS Lab: Laboratory Tests Test 01/18/17 17:19 01/18/17 20:54 01/19/17 04:15 01/19/17 07:17 Glucose (Fingerstick) 99 mg/dL (70-99) 105 mg/dL (70-99) 85 mg/dL (70-99) White Blood Count 9.4 x10^3/uL (4.0-11.0) Red Blood Count 3.44 x10^6/uL (3.50-5.40) Hemoglobin 10.7 g/dL (12.0-15.5) Hematocrit 32.8 % (36.0-47.0) Mean Corpuscular Volume 95 fL (79-100) Mean Corpuscular Hemoglobin 31 pg (25-35) Mean Corpuscular Hemoglobin Concent 33 g/dL (31-37) Red Cell Distribution Width 14.0 % (11.5-14.5) Platelet Count 146 x10^3/uL (140-400) Neutrophils (%) (Auto) 73 % (31-73) Lymphocytes (%) (Auto) 16 % (24-48) Monocytes (%) (Auto) 9 % (0-9) Eosinophils (%) (Auto) 2 % (0-3) Basophils (%) (Auto) 0 % (0-3) Neutrophils # (Auto) 6.8 x10^3uL (1.8-7.7) Lymphocytes # (Auto) 1.5 x10^3/uL (1.0-4.8) Monocytes # (Auto) 0.9 x10^3/uL (0.0-1.1) Eosinophils # (Auto) 0.2 x10^3/uL (0.0-0.7) Basophils # (Auto) 0.0 x10^3/uL (0.0-0.2) Sodium Level 147 mmol/L (136-145) Potassium Level 4.4 mmol/L (3.5-5.1) Chloride Level 110 mmol/L (98-107) Carbon Dioxide Level 31 mmol/L (21-32) Anion Gap 6 (6-14) Blood Urea Nitrogen 32 mg/dL (7-20) Creatinine 1.3 mg/dL (0.6-1.0) Estimated GFR (Cockcroft-Gault) 41.0 Glucose Level 99 mg/dL (70-99) Calcium Level 8.3 mg/dL (8.5-10.1) Vancomycin Level Trough 30.6 mcg/mL (10.0-20.0) Vancomycin Last Dose Date Vancomycin Last Dose Time 1600 ECHOCARDIOGRAM ECHOCARDIOGRAM <Conclusion> The left ventricle is normal size. The left ventricular systolic function is normal and the ejection fraction is within normal range. The Ejection Fraction is 55-60%. There is no significant aortic valvular stenosis. Doppler and Color Flow revealed no significant aortic regurgitation. Doppler and Color Flow revealed trace to mild mitral regurgitation. Doppler and Color Flow revealed moderate tricuspid regurgitation. The pulmonary artery systolic pressure is estimated at 52 mmHg. DATE: 12/18/16 1557 ASSESSMENT/PLAN ASSESSMENT/PLAN 1. Mild acute on chronic diastolic heart failure Nt Pro BNP mildly elevated Echo last month with preserved LV function with an EF of 55-60%. Lasix held due to hypotension; resume as BP allows 2. Acute on chronic respiratory failure multifactorial given PNA, AE COPD and pulm fibrosis IV antibiotic therapy initiated per pulm 3. Pulmonary fibrosis 4. Hypertension presently hypotensive; hold antiHTN therapy as warranted 5. Hyperlipidemia check lipids 6. SANTIAGO monitor with diuresis Problems: ALEKSEY NIX MD 01/19/17 2897: CARDIAC CONSULT ALLERGIES ALLERGIES: Coded Allergies: pregabalin (Verified Allergy, Severe, SWELLING, WEIGHT GAIN, 11/23/15) sitagliptin (Verified Allergy, Severe, "I BOTTOM OUT LIKE A DIABETIC", ) Sulfa (Sulfonamide Antibiotics) (Verified Allergy, Intermediate, RASH, ) adhesive (Verified Allergy, Intermediate, BLISTERS, RASH, 11/23/15) ASSESSMENT/PLAN ASSESSMENT/PLAN Patient seen and examined. Agree with CABINET PROFESSIONAL's assessment and plan. Acute resp failure secondary to acute COPD exacerbation and pulm fibrosis Chronic diast HF appears compensated Continue current treatment per pulm team Thank you for your consultation. Problems: JEISON DAWKINS APRN January 19, 2017 11:03 ALEKSEY NIX MD January 19, 2017 18:47
--- NOTE | 2017-01-19 11:26 | PDOC ---
PROGRESS NOTES Chief Complaint Chief Complaint Shortness of breath Pneumonia, bilateral Pulmonary fibrosis CHF Hypertension Hyperlipidemia Diabetes History of Present Illness History of Present Illness Patient was lying in bed in no acute distress this am but now has laryngitis and cant talk DW family Vitals Vitals Vital Signs Date Time Temp Pulse Resp B/P (MAP) Pulse Ox O2 Delivery O2 Flow Rate FiO2 01/19/17 11:20 97 Nasal Cannula 3.0 01/19/17 07:11 97.4 68 18 96/57 (70) 97.4 Physical Exam General: Alert, Oriented X3, Cooperative, No acute distress Heart: Regular rate, Normal S1, Normal S2 Lungs: Crackles (bilateral) Abdomen: Normal bowel sounds, Soft Extremities: No clubbing, No cyanosis Skin: No rashes, No breakdown Labs LABS Laboratory Tests Test 01/18/17 17:19 01/18/17 20:54 01/19/17 04:15 01/19/17 07:17 Glucose (Fingerstick) 99 mg/dL (70-99) 105 mg/dL (70-99) 85 mg/dL (70-99) White Blood Count 9.4 x10^3/uL (4.0-11.0) Red Blood Count 3.44 x10^6/uL (3.50-5.40) Hemoglobin 10.7 g/dL (12.0-15.5) Hematocrit 32.8 % (36.0-47.0) Mean Corpuscular Volume 95 fL (79-100) Mean Corpuscular Hemoglobin 31 pg (25-35) Mean Corpuscular Hemoglobin Concent 33 g/dL (31-37) Red Cell Distribution Width 14.0 % (11.5-14.5) Platelet Count 146 x10^3/uL (140-400) Neutrophils (%) (Auto) 73 % (31-73) Lymphocytes (%) (Auto) 16 % (24-48) Monocytes (%) (Auto) 9 % (0-9) Eosinophils (%) (Auto) 2 % (0-3) Basophils (%) (Auto) 0 % (0-3) Neutrophils # (Auto) 6.8 x10^3uL (1.8-7.7) Lymphocytes # (Auto) 1.5 x10^3/uL (1.0-4.8) Monocytes # (Auto) 0.9 x10^3/uL (0.0-1.1) Eosinophils # (Auto) 0.2 x10^3/uL (0.0-0.7) Basophils # (Auto) 0.0 x10^3/uL (0.0-0.2) Sodium Level 147 mmol/L (136-145) Potassium Level 4.4 mmol/L (3.5-5.1) Chloride Level 110 mmol/L (98-107) Carbon Dioxide Level 31 mmol/L (21-32) Anion Gap 6 (6-14) Blood Urea Nitrogen 32 mg/dL (7-20) Creatinine 1.3 mg/dL (0.6-1.0) Estimated GFR (Cockcroft-Gault) 41.0 Glucose Level 99 mg/dL (70-99) Calcium Level 8.3 mg/dL (8.5-10.1) Vancomycin Level Trough 30.6 mcg/mL (10.0-20.0) Vancomycin Last Dose Date Vancomycin Last Dose Time 1600 Review of Systems Review of Systems co no voice co soa Assessment and Plan Assessmemt and Plan Shortness of breath Pneumonia, bilateral Pulmonary fibrosis CHF Hypertension Hyperlipidemia Diabetes Plan Nebs O2 Immunosupression PTOT Home meds Lasix Prognosis senior living is poor ? Hospice? Problems: Comment Review of Relevant I have reviewed the following items jared (where applicable) has been applied. Labs Laboratory Tests Test 01/17/17 11:54 01/17/17 15:43 01/17/17 16:35 01/17/17 20:44 Glucose (Fingerstick) 131 mg/dL (70-99) 151 mg/dL (70-99) 156 mg/dL (70-99) White Blood Count 8.6 x10^3/uL (4.0-11.0) Red Blood Count 3.67 x10^6/uL (3.50-5.40) Hemoglobin 11.4 g/dL (12.0-15.5) Hematocrit 34.8 % (36.0-47.0) Mean Corpuscular Volume 95 fL (79-100) Mean Corpuscular Hemoglobin 31 pg (25-35) Mean Corpuscular Hemoglobin Concent 33 g/dL (31-37) Red Cell Distribution Width 14.1 % (11.5-14.5) Platelet Count 156 x10^3/uL (140-400) Neutrophils (%) (Auto) 86 % (31-73) Lymphocytes (%) (Auto) 5 % (24-48) Monocytes (%) (Auto) 8 % (0-9) Eosinophils (%) (Auto) 0 % (0-3) Basophils (%) (Auto) 0 % (0-3) Neutrophils # (Auto) 7.4 x10^3uL (1.8-7.7) Lymphocytes # (Auto) 0.5 x10^3/uL (1.0-4.8) Monocytes # (Auto) 0.7 x10^3/uL (0.0-1.1) Eosinophils # (Auto) 0.0 x10^3/uL (0.0-0.7) Basophils # (Auto) 0.0 x10^3/uL (0.0-0.2) Segmented Neutrophils % 82 % (35-66) Band Neutrophils % 5 % (0-9) Lymphocytes % 4 % (24-48) Monocytes % 9 % (0-10) Platelet Estimate Adequate (ADEQUATE) Test 01/18/17 03:40 01/18/17 08:10 01/18/17 17:19 01/18/17 20:54 White Blood Count 6.4 x10^3/uL (4.0-11.0) Red Blood Count 3.51 x10^6/uL (3.50-5.40) Hemoglobin 11.4 g/dL (12.0-15.5) Hematocrit 33.0 % (36.0-47.0) Mean Corpuscular Volume 94 fL (79-100) Mean Corpuscular Hemoglobin 32 pg (25-35) Mean Corpuscular Hemoglobin Concent 35 g/dL (31-37) Red Cell Distribution Width 14.2 % (11.5-14.5) Platelet Count 143 x10^3/uL (140-400) Neutrophils (%) (Auto) 89 % (31-73) Lymphocytes (%) (Auto) 7 % (24-48) Monocytes (%) (Auto) 5 % (0-9) Eosinophils (%) (Auto) 0 % (0-3) Basophils (%) (Auto) 0 % (0-3) Neutrophils # (Auto) 5.7 x10^3uL (1.8-7.7) Lymphocytes # (Auto) 0.4 x10^3/uL (1.0-4.8) Monocytes # (Auto) 0.3 x10^3/uL (0.0-1.1) Eosinophils # (Auto) 0.0 x10^3/uL (0.0-0.7) Basophils # (Auto) 0.0 x10^3/uL (0.0-0.2) Sodium Level 144 mmol/L (136-145) Potassium Level 4.4 mmol/L (3.5-5.1) Chloride Level 106 mmol/L (98-107) Carbon Dioxide Level 33 mmol/L (21-32) Anion Gap 5 (6-14) Blood Urea Nitrogen 36 mg/dL (7-20) Creatinine 1.1 mg/dL (0.6-1.0) Estimated GFR (Cockcroft-Gault) 49.7 Glucose Level 145 mg/dL (70-99) Calcium Level 8.6 mg/dL (8.5-10.1) Glucose (Fingerstick) 109 mg/dL (70-99) 99 mg/dL (70-99) 105 mg/dL (70-99) Test 01/19/17 04:15 01/19/17 07:17 White Blood Count 9.4 x10^3/uL (4.0-11.0) Red Blood Count 3.44 x10^6/uL (3.50-5.40) Hemoglobin 10.7 g/dL (12.0-15.5) Hematocrit 32.8 % (36.0-47.0) Mean Corpuscular Volume 95 fL (79-100) Mean Corpuscular Hemoglobin 31 pg (25-35) Mean Corpuscular Hemoglobin Concent 33 g/dL (31-37) Red Cell Distribution Width 14.0 % (11.5-14.5) Platelet Count 146 x10^3/uL (140-400) Neutrophils (%) (Auto) 73 % (31-73) Lymphocytes (%) (Auto) 16 % (24-48) Monocytes (%) (Auto) 9 % (0-9) Eosinophils (%) (Auto) 2 % (0-3) Basophils (%) (Auto) 0 % (0-3) Neutrophils # (Auto) 6.8 x10^3uL (1.8-7.7) Lymphocytes # (Auto) 1.5 x10^3/uL (1.0-4.8) Monocytes # (Auto) 0.9 x10^3/uL (0.0-1.1) Eosinophils # (Auto) 0.2 x10^3/uL (0.0-0.7) Basophils # (Auto) 0.0 x10^3/uL (0.0-0.2) Sodium Level 147 mmol/L (136-145) Potassium Level 4.4 mmol/L (3.5-5.1) Chloride Level 110 mmol/L (98-107) Carbon Dioxide Level 31 mmol/L (21-32) Anion Gap 6 (6-14) Blood Urea Nitrogen 32 mg/dL (7-20) Creatinine 1.3 mg/dL (0.6-1.0) Estimated GFR (Cockcroft-Gault) 41.0 Glucose Level 99 mg/dL (70-99) Calcium Level 8.3 mg/dL (8.5-10.1) Vancomycin Level Trough 30.6 mcg/mL (10.0-20.0) Vancomycin Last Dose Date Vancomycin Last Dose Time 1600 Glucose (Fingerstick) 85 mg/dL (70-99) Laboratory Tests Test 01/18/17 17:19 01/18/17 20:54 01/19/17 04:15 01/19/17 07:17 Glucose (Fingerstick) 99 mg/dL (70-99) 105 mg/dL (70-99) 85 mg/dL (70-99) White Blood Count 9.4 x10^3/uL (4.0-11.0) Red Blood Count 3.44 x10^6/uL (3.50-5.40) Hemoglobin 10.7 g/dL (12.0-15.5) Hematocrit 32.8 % (36.0-47.0) Mean Corpuscular Volume 95 fL (79-100) Mean Corpuscular Hemoglobin 31 pg (25-35) Mean Corpuscular Hemoglobin Concent 33 g/dL (31-37) Red Cell Distribution Width 14.0 % (11.5-14.5) Platelet Count 146 x10^3/uL (140-400) Neutrophils (%) (Auto) 73 % (31-73) Lymphocytes (%) (Auto) 16 % (24-48) Monocytes (%) (Auto) 9 % (0-9) Eosinophils (%) (Auto) 2 % (0-3) Basophils (%) (Auto) 0 % (0-3) Neutrophils # (Auto) 6.8 x10^3uL (1.8-7.7) Lymphocytes # (Auto) 1.5 x10^3/uL (1.0-4.8) Monocytes # (Auto) 0.9 x10^3/uL (0.0-1.1) Eosinophils # (Auto) 0.2 x10^3/uL (0.0-0.7) Basophils # (Auto) 0.0 x10^3/uL (0.0-0.2) Sodium Level 147 mmol/L (136-145) Potassium Level 4.4 mmol/L (3.5-5.1) Chloride Level 110 mmol/L (98-107) Carbon Dioxide Level 31 mmol/L (21-32) Anion Gap 6 (6-14) Blood Urea Nitrogen 32 mg/dL (7-20) Creatinine 1.3 mg/dL (0.6-1.0) Estimated GFR (Cockcroft-Gault) 41.0 Glucose Level 99 mg/dL (70-99) Calcium Level 8.3 mg/dL (8.5-10.1) Vancomycin Level Trough 30.6 mcg/mL (10.0-20.0) Vancomycin Last Dose Date Vancomycin Last Dose Time 1600 Medications Current Medications Sodium Chloride 1,000 ml @ 60 mls/hr [id number] IV Last administered on t 06:26; Start 01/16/17 at 23:00 Ondansetron HCl (Zofran) 4 mg PRN Q6HRS PRN IV NAUSEA/VOMITING; Start 01/16/17 at 23:00; Stop 01/17/17 at 13:31; Status DC Oxycodone HCl (Roxicodone) 10 mg PRN Q8HRS PRN PO SEVERE PAIN; Start 01/16/17 at 23:00; Stop 01/19/17 at 09:42; Status DC Acetaminophen (Tylenol) 650 mg PRN Q6HRS PRN PO Headaches, Temp > 101.5F; Start 01/16/17 at 22:45; Stop 01/17/17 at 10:06; Status DC Docusate Sodium (Colace) 100 mg BID PO ; Start 01/17/17 at 09:00; Stop 01/17/17 at 13:31; Status DC Enoxaparin Sodium (Lovenox 40mg Syringe) 40 mg Q24H SQ Last administered on 00:33; Start 01/16/17 at 23:00; Stop 01/17/17 at 10:01; Status DC Hydrocortisone Sodium Succinate (Solu-CORTEF) 60 mg Q12HR IV Last administered on 01/17/17 09:42; Start 01/17/17 at 09:00; Stop 01/17/17 at 13:29; Status DC Famotidine (Pepcid) 20 mg QHS PO ; Start 01/17/17 at 21:00; Stop 01/17/17 at 21: 00; Status DC Albuterol/ Ipratropium (Duoneb) 3 ml RTQID NEB Last administered on 01/19/17 11:20; Start 01/17/17 at 08:00 Alprazolam (Xanax) 1 mg PRN Q8HRS PRN PO ANXIETY / AGITATION Last administered on 01/19/17 08:08; Start 01/17/17 at 00:15 Albuterol/ Ipratropium (Duoneb) 3 ml 1X ONCE NEB Last administered on 02:49; Start 01/17/17 at 02:45; Stop 01/17/17 at 02:46; Status DC Guaifenesin (Robitussin Dm) 10 ml PRN Q6HRS PRN PO COUGH Last administered on 09:35; Start 01/17/17 at 02:45 Enoxaparin Sodium (Lovenox 40mg Syringe) 40 mg BID SQ Last administered on 01/19 09:35; Start 01/17/17 at 21:00 Acetaminophen (Tylenol) 325 mg PRN Q6HRS PRN PO MILD PAIN / TEMP; Start at 10:15 Acetaminophen/ Hydrocodone Bitart (Lortab 5/325) 1 tab PRN Q6HRS PRN PO MODERATE PAIN Last administered on 01/18/17 13:40; Start 01/17/17 at 10:15 Hydralazine HCl (Apresoline) 10 mg PRN Q4HRS PRN IVP ELEVATED BP, SEE COMMENTS ; Start 01/17/17 at 10:15 Ondansetron HCl (Zofran) 4 mg PRN Q8HRS PRN IV NAUSEA/VOMITING; Start 01/17/17 at 10:15 Albuterol Sulfate (Ventolin Neb Soln) 2.5 mg PRN Q4HRS PRN NEB SHORTNESS OF BREATH Last administered on 01/19/17 08:29; Start 01/17/17 at 10:15 Methylprednisolone Sodium Succinate (SOLU-Medrol 40MG VIAL) 40 mg Q8HRS IV Last administered on 01/17/17 21:04; Start 01/17/17 at 14:00; Stop 01/17/17 at 21:53; Status DC Piperacillin Sod/ Tazobactam Sod 3.375 gm/Sodium Chloride 50 ml @ 100 mls/hr Q6HRS IV Last administered on 01/19/17 06:22; Start 01/17/17 at 18:00 Levofloxacin/ Dextrose 150 ml @ 100 mls/hr Q24H IV Last administered on 13:33; Start 01/17/17 at 13:30 Vancomycin HCl (Vanco Per Pharmacy) 1 each PRN DAILY PRN MC SEE COMMENTS Last administered on 01/19/17 09:38; Start 01/17/17 at 13:15 Guaifenesin/ Codeine Phosphate (Robitussin Ac) 5 ml PRN Q6HRS PRN PO COUGH Last administered on 01/18/17 13:40; Start 01/17/17 at 13:15 Vancomycin HCl 2 gm/Sodium Chloride 500 ml @ 250 mls/hr 1X ONCE IV Last administered on 01/17/17 15:21; Start 01/17/17 at 13:30; Stop 01/17/17 at 15:29 ; Status DC Docusate Sodium (Colace) 100 mg BID PO Last administered on 01/18/17 22:52; Start 01/17/17 at 21:00 Furosemide (Lasix) 20 mg DAILY PO Last administered on 01/18/17 11:06; Start 01/17/17 at 14:00 Lisinopril (Prinivil) 2.5 mg DAILY PO Last administered on 01/18/17 11:07; Start 01/17/17 at 14:00 Metoprolol Succinate (Toprol Xl) 25 mg DAILY PO Last administered on 01/18/17 11:07; Start 01/17/17 at 14:00 Montelukast Sodium (Singulair) 10 mg HS PO Last administered on 01/18/17 22:53 ; Start 01/17/17 at 21:00 Oxybutynin Chloride (Ditropan) 5 mg BID PO Last administered on 01/19/17 08:10 ; Start 01/17/17 at 14:00 Pantoprazole Sodium (Protonix) 40 mg BIDAC PO Last administered on 01/19/17 08 :10; Start 01/17/17 at 16:30 Senna/Docusate Sodium (Senna Plus) 1 tab QHS PO Last administered on 01/18/17 22:53; Start 01/17/17 at 21:00 Alprazolam (Xanax) 3 mg QHS PO Last administered on 01/18/17 22:54; Start at 21:00 Lactobacillus Acidophilus (Bacid, Jodi-Bid) 2 tab QHS PO Last administered on 22:53; Start 01/17/17 at 21:00 Duloxetine HCl (Cymbalta) 60 mg [id number] PO Last administered on 01/19/17 08:10; Start 01/17/17 at 18:00 Escitalopram Oxalate (Lexapro) 20 mg DAILY PO Last administered on 01/19/17 08 :11; Start 01/18/17 at 09:00 Famotidine (Pepcid) 40 mg QHS PO Last administered on 01/18/17 22:53; Start at 21:00 Lamotrigine (LaMICtal) 200 mg BID PO Last administered on 01/19/17 08:11; Start 01/17/17 at 21:00 Cetirizine HCl (ZyrTEC) 10 mg DAILY PO Last administered on 01/19/17 09:35; Start 01/18/17 at 09:00 Meloxicam (Mobic) 15 mg DAILY PO Last administered on 01/19/17 08:12; Start at 14:00 Fish Oil (Fish Oil) 1,000 mg BID PO Last administered on 01/19/17 08:09; Start 01/17/17 at 21:00 Oxycodone HCl (Roxicodone) 20 mg PRN TID PRN PO PAIN Last administered on 01:11; Start 01/17/17 at 13:45 Oxycodone HCl (Roxicodone) 40 mg PRN TID PRN PO PAIN; Start 01/17/17 at 13:45 Sertraline HCl (Zoloft) 200 mg DAILY PO ; Start 01/18/17 at 09:00; Status Cancel Vancomycin HCl 1.5 gm/Sodium Chloride 500 ml @ 250 mls/hr Q12H IV Last administered on 01/18/17 16:21; Start 01/18/17 at 04:00; Stop 01/19/17 at 04:58 ; Status DC Vancomycin HCl 1 each 1X ONCE MC Last administered on 01/19/17 03:30; Start 01/19/17 at 03:30; Stop 01/19/17 at 03:31; Status DC Vancomycin HCl 1.5 gm/Sodium Chloride 500 ml @ 250 mls/hr Q24H IV ; Start 01/19 at 21:00 Vancomycin HCl 1 each 1X ONCE MC ; Start 01/20/17 at 20:30; Stop 01/20/17 at 20 :31 Active Scripts Active Reported Oxycodone Hcl 10 Mg Tablet 20 Mg PO TID PRN Symbicort 160-4.5 Mcg Inhaler (Budesonide/Formoterol Fumarate) 10.2 Gm Hfa.aer.ad 2 Puff IH BID Alprazolam 2 Mg Tablet 1.5 Tab PO QHS Senna Plus Tablet (Sennosides/Docusate Sodium) 1 Each Tablet 1 Each PO QHS Prednisone 20 Mg Tablet 1 Tab PO DAILY Lisinopril 2.5 Mg Tablet 1 Tab PO DAILY Lamotrigine 200 Mg Tablet 1 Tab PO BID Furosemide 20 Mg Tablet 1 Tab PO DAILY Famotidine 40 Mg Tablet 40 Mg PO HS Lexapro (Escitalopram Oxalate) 20 Mg Tablet 25 Mg PO DAILY Phentermine Hcl 37.5 Mg Tablet 1 Tab PO PRN BID PRN Actonel (Risedronate Sodium) 150 Mg Tablet 1 Tab PO QMONTH Miralax (Polyethylene Glycol 3350) 17 Gm Powd.pack 1 Packet PO DAILY PRN Olopatadine HCl 30.5 Gm [place].pump 30.5 Gm NS DAILY Flonase Allergy Relief (Fluticasone Propionate) 9.9 Ml [place].susp 1 Sprays NS BID FENTANYL 100mcg/hr (Fentanyl) 1 Each Patch.td72 1 Patch TD Q72H Proair Hfa Inhaler (Albuterol Sulfate) 8.5 Gm Hfa.aer.ad 2 Puff INH QID PRN Berkley-3 (B[place]ley-3 Fatty Acids) 1,000 Mg Capsule 1,000 Mg PO BID Multi-Vitamin Daily (Multivitamin) 1 Each Tablet 1 Each PO Glucosamine 1,500 Complex Cp (Gluc Becerril/Chondro Becerril A/Vit C/Mn) 1 Each Capsule 1 Each PO BID Calcium Carbonate 600 Mg Tablet 600 Mg PO BID Zoloft (Sertraline Hcl) 100 Mg Tablet 2 Tab PO DAILY Protonix (Pantoprazole Sodium) 40 Mg Tablet.dr 1 Tab PO BID Oxycodone Hcl 20 Mg Tablet 40 Mg PO TID PRN Oxybutynin Chloride 5 Mg Tablet 1 Tab PO BID Montelukast Sodium Tablet (Montelukast Sodium) 10 Mg Tablet 10 Mg PO HS Metoprolol Succinate ( Xl ) (Metoprolol Succinate) 25 Mg Tab.er.24h 1 Tab PO DAILY Mobic (Meloxicam) 15 Mg Tablet 1 Tab PO DAILY Loratadine 10 Mg Tablet 1 Tab PO DAILY Cymbalta (Duloxetine Hcl) 60 Mg Capsule.dr 1 Cap PO [id number] Colace (Docusate Sodium) 100 Mg Capsule 1 Cap PO BID Alprazolam 1 Mg Tablet 1 Tab PO TID Align (Bifidobacterium Infantis) 4 Mg Capsule 4 Mg PO HS Vitals/I & O Vital Sign - Last 24 Hours 01/18/17 01/18/17 01/18/17 01/18/17 13:40 15:00 15:00 15:58 Temp 97.9 97.9 Pulse 82 Resp 18 B/P (MAP) 109/52 (71) Pulse Ox 98 98 97 96 O2 Delivery Nasal Cannula Nasal Cannula Nasal Cannula Nasal Cannula O2 Flow Rate 3.0 3.0 4.0 3.0 01/18/17 01/18/17 01/18/17 01/18/17 19:27 19:47 20:00 22:54 Temp 97.5 98.4 97.5 98.4 Pulse 84 74 Resp 18 20 B/P (MAP) 95/51 (66) 103/55 (71) Pulse Ox 99 94 98 O2 Delivery Nasal Cannula Nasal Cannula Nasal Cannula O2 Flow Rate 5.0 3.0 4.0 5.0 01/18/17 01/19/17 01/19/17 01/19/17 22:56 03:30 03:48 07:11 Temp 97.3 97.4 97.3 97.4 Pulse 80 72 68 Resp 20 18 B/P (MAP) 103/55 (71) 82/47 (59) 90/54 (66) 96/57 (70) Pulse Ox 96 97 O2 Delivery Nasal Cannula Nasal Cannula O2 Flow Rate 5.0 01/19/17 01/19/17 01/19/17 01/19/17 07:16 08:00 08:33 11:20 Pulse Ox 97 97 O2 Delivery Nasal Cannula Nasal Cannula Nasal Cannula Nasal Cannula O2 Flow Rate 3.0 3.0 3.0 3.0 Intake and Output 01/18/17 01/18/17 01/19/17 14:59 22:59 06:59 Intake Total 800 ml 1058 ml Output Total 650 ml 800 ml Balance 150 ml 258 ml JASSI TOM K III DO January 19, 2017 11:26
[2017-01-19] MEDS: guaiFENesin/CODEINE 100mg/10mg 5 ML LIQUID PO PRN (15:15)
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
[2017-01-19] MEDS: HYDROcodone/APAP 5/325MG 1 TAB TABLET PO PRN (15:16)
--- NOTE | 2017-01-19 15:41 | PDOC ---
PULMONARY PROGRESS NOTES Subjective LESS SOA TODAY Vitals Vital Signs Date Time Temp Pulse Resp B/P (MAP) Pulse Ox O2 Delivery O2 Flow Rate FiO2 01/19/17 15:16 94 Nasal Cannula 4.0 01/19/17 15:01 98.2 88 22 92/30 (50) 98.2 ROS: No Nausea, No Chest Pain, No Abdominal Pain, No Increase Cough Lungs: Crackles (bilateral) Cardiovascular: S1, S2 Abdomen: Soft Neuro Exam: Alert Extremities: No Edema Skin: Warm Labs Laboratory Tests Test 01/17/17 15:43 01/17/17 16:35 01/17/17 20:44 01/18/17 03:40 White Blood Count 8.6 x10^3/uL (4.0-11.0) 6.4 x10^3/uL (4.0-11.0) Red Blood Count 3.67 x10^6/uL (3.50-5.40) 3.51 x10^6/uL (3.50-5.40) Hemoglobin 11.4 g/dL (12.0-15.5) 11.4 g/dL (12.0-15.5) Hematocrit 34.8 % (36.0-47.0) 33.0 % (36.0-47.0) Mean Corpuscular Volume 95 fL (79-100) 94 fL (79-100) Mean Corpuscular Hemoglobin 31 pg (25-35) 32 pg (25-35) Mean Corpuscular Hemoglobin Concent 33 g/dL (31-37) 35 g/dL (31-37) Red Cell Distribution Width 14.1 % (11.5-14.5) 14.2 % (11.5-14.5) Platelet Count 156 x10^3/uL (140-400) 143 x10^3/uL (140-400) Neutrophils (%) (Auto) 86 % (31-73) 89 % (31-73) Lymphocytes (%) (Auto) 5 % (24-48) 7 % (24-48) Monocytes (%) (Auto) 8 % (0-9) 5 % (0-9) Eosinophils (%) (Auto) 0 % (0-3) 0 % (0-3) Basophils (%) (Auto) 0 % (0-3) 0 % (0-3) Neutrophils # (Auto) 7.4 x10^3uL (1.8-7.7) 5.7 x10^3uL (1.8-7.7) Lymphocytes # (Auto) 0.5 x10^3/uL (1.0-4.8) 0.4 x10^3/uL (1.0-4.8) Monocytes # (Auto) 0.7 x10^3/uL (0.0-1.1) 0.3 x10^3/uL (0.0-1.1) Eosinophils # (Auto) 0.0 x10^3/uL (0.0-0.7) 0.0 x10^3/uL (0.0-0.7) Basophils # (Auto) 0.0 x10^3/uL (0.0-0.2) 0.0 x10^3/uL (0.0-0.2) Segmented Neutrophils % 82 % (35-66) Band Neutrophils % 5 % (0-9) Lymphocytes % 4 % (24-48) Monocytes % 9 % (0-10) Platelet Estimate Adequate (ADEQUATE) Glucose (Fingerstick) 151 mg/dL (70-99) 156 mg/dL (70-99) Sodium Level 144 mmol/L (136-145) Potassium Level 4.4 mmol/L (3.5-5.1) Chloride Level 106 mmol/L (98-107) Carbon Dioxide Level 33 mmol/L (21-32) Anion Gap 5 (6-14) Blood Urea Nitrogen 36 mg/dL (7-20) Creatinine 1.1 mg/dL (0.6-1.0) Estimated GFR (Cockcroft-Gault) 49.7 Glucose Level 145 mg/dL (70-99) Calcium Level 8.6 mg/dL (8.5-10.1) Test 01/18/17 08:10 01/18/17 17:19 01/18/17 20:54 01/19/17 04:15 Glucose (Fingerstick) 109 mg/dL (70-99) 99 mg/dL (70-99) 105 mg/dL (70-99) White Blood Count 9.4 x10^3/uL (4.0-11.0) Red Blood Count 3.44 x10^6/uL (3.50-5.40) Hemoglobin 10.7 g/dL (12.0-15.5) Hematocrit 32.8 % (36.0-47.0) Mean Corpuscular Volume 95 fL (79-100) Mean Corpuscular Hemoglobin 31 pg (25-35) Mean Corpuscular Hemoglobin Concent 33 g/dL (31-37) Red Cell Distribution Width 14.0 % (11.5-14.5) Platelet Count 146 x10^3/uL (140-400) Neutrophils (%) (Auto) 73 % (31-73) Lymphocytes (%) (Auto) 16 % (24-48) Monocytes (%) (Auto) 9 % (0-9) Eosinophils (%) (Auto) 2 % (0-3) Basophils (%) (Auto) 0 % (0-3) Neutrophils # (Auto) 6.8 x10^3uL (1.8-7.7) Lymphocytes # (Auto) 1.5 x10^3/uL (1.0-4.8) Monocytes # (Auto) 0.9 x10^3/uL (0.0-1.1) Eosinophils # (Auto) 0.2 x10^3/uL (0.0-0.7) Basophils # (Auto) 0.0 x10^3/uL (0.0-0.2) Sodium Level 147 mmol/L (136-145) Potassium Level 4.4 mmol/L (3.5-5.1) Chloride Level 110 mmol/L (98-107) Carbon Dioxide Level 31 mmol/L (21-32) Anion Gap 6 (6-14) Blood Urea Nitrogen 32 mg/dL (7-20) Creatinine 1.3 mg/dL (0.6-1.0) Estimated GFR (Cockcroft-Gault) 41.0 Glucose Level 99 mg/dL (70-99) Calcium Level 8.3 mg/dL (8.5-10.1) [id number]-T-Type Natriuretic Peptide 1432 pg/mL (0-124) Vancomycin Level Trough 30.6 mcg/mL (10.0-20.0) Vancomycin Last Dose Date Vancomycin Last Dose Time 1600 Test 01/19/17 07:17 01/19/17 11:28 Glucose (Fingerstick) 85 mg/dL (70-99) 125 mg/dL (70-99) Laboratory Tests Test 01/18/17 17:19 01/18/17 20:54 01/19/17 04:15 01/19/17 07:17 Glucose (Fingerstick) 99 mg/dL (70-99) 105 mg/dL (70-99) 85 mg/dL (70-99) White Blood Count 9.4 x10^3/uL (4.0-11.0) Red Blood Count 3.44 x10^6/uL (3.50-5.40) Hemoglobin 10.7 g/dL (12.0-15.5) Hematocrit 32.8 % (36.0-47.0) Mean Corpuscular Volume 95 fL (79-100) Mean Corpuscular Hemoglobin 31 pg (25-35) Mean Corpuscular Hemoglobin Concent 33 g/dL (31-37) Red Cell Distribution Width 14.0 % (11.5-14.5) Platelet Count 146 x10^3/uL (140-400) Neutrophils (%) (Auto) 73 % (31-73) Lymphocytes (%) (Auto) 16 % (24-48) Monocytes (%) (Auto) 9 % (0-9) Eosinophils (%) (Auto) 2 % (0-3) Basophils (%) (Auto) 0 % (0-3) Neutrophils # (Auto) 6.8 x10^3uL (1.8-7.7) Lymphocytes # (Auto) 1.5 x10^3/uL (1.0-4.8) Monocytes # (Auto) 0.9 x10^3/uL (0.0-1.1) Eosinophils # (Auto) 0.2 x10^3/uL (0.0-0.7) Basophils # (Auto) 0.0 x10^3/uL (0.0-0.2) Sodium Level 147 mmol/L (136-145) Potassium Level 4.4 mmol/L (3.5-5.1) Chloride Level 110 mmol/L (98-107) Carbon Dioxide Level 31 mmol/L (21-32) Anion Gap 6 (6-14) Blood Urea Nitrogen 32 mg/dL (7-20) Creatinine 1.3 mg/dL (0.6-1.0) Estimated GFR (Cockcroft-Gault) 41.0 Glucose Level 99 mg/dL (70-99) Calcium Level 8.3 mg/dL (8.5-10.1) QB-Wmz-H-Type Natriuretic Peptide 1432 pg/mL (0-124) Vancomycin Level Trough 30.6 mcg/mL (10.0-20.0) Vancomycin Last Dose Date Vancomycin Last Dose Time 1600 Test 01/19/17 11:28 Glucose (Fingerstick) 125 mg/dL (70-99) Medications Active Scripts Medications Dose Route/Sig Max Daily Dose Days Date Category Oxycodone Hcl 10 Mg Tablet 20 Mg PO TID PRN 01/17/17 Reported Symbicort 160-4.5 Mcg Inhaler (Budesonide/Formoterol Fumarate) 10.2 Gm Hfa.aer.ad 2 Puff IH BID 01/17/17 Reported Alprazolam 2 Mg Tablet 1.5 Tab PO QHS 01/17/17 Reported Senna Plus Tablet (Sennosides/Docusate Sodium) 1 Each Tablet 1 Each PO QHS 01/17/17 Reported Prednisone 20 Mg Tablet 1 Tab PO DAILY 01/17/17 Reported Lisinopril 2.5 Mg Tablet 1 Tab PO DAILY 01/17/17 Reported Lamotrigine 200 Mg Tablet 1 Tab PO BID 01/17/17 Reported Furosemide 20 Mg Tablet 1 Tab PO DAILY 01/17/17 Reported Famotidine 40 Mg Tablet 40 Mg PO HS 01/17/17 Reported Lexapro (Escitalopram Oxalate) 20 Mg Tablet 25 Mg PO DAILY 01/17/17 Reported Phentermine Hcl 37.5 Mg Tablet 1 Tab PO PRN BID PRN 08/21/16 Reported Actonel (Risedronate Sodium) 150 Mg Tablet 1 Tab PO QMONTH 08/21/16 Reported Miralax (Polyethylene Glycol 3350) 17 Gm Powd.pack 1 Packet PO DAILY PRN 08/21/16 Reported Olopatadine HCl 30.5 Gm [place].pump 30.5 Gm NS DAILY 08/21/16 Reported Flonase Allergy Relief (Fluticasone Propionate) 9.9 Ml [place].susp 1 Sprays NS BID 08/21/16 Reported FENTANYL 100mcg/hr (Fentanyl) 1 Each Patch.td72 1 Patch TD Q72H 08/21/16 Reported Proair Hfa Inhaler (Albuterol Sulfate) 8.5 Gm Hfa.aer.ad 2 Puff INH QID PRN 08/21/16 Reported [place]-3 ([place]-3 Fatty Acids) 1,000 Mg Capsule 1,000 Mg PO BID 08/21/16 Reported Multi-Vitamin Daily (Multivitamin) 1 Each Tablet 1 Each PO 08/21/16 Reported Glucosamine 1,500 Complex Cp (Gluc Becerril/Chondro Becerril A/Vit C/Mn) 1 Each Capsule 1 Each PO BID 08/21/16 Reported Calcium Carbonate 600 Mg Tablet 600 Mg PO BID 08/21/16 Reported Zoloft (Sertraline Hcl) 100 Mg Tablet 2 Tab PO DAILY 08/21/16 Reported Protonix (Pantoprazole Sodium) 40 Mg Tablet.dr 1 Tab PO BID 08/21/16 Reported Oxycodone Hcl 20 Mg Tablet 40 Mg PO TID PRN 08/21/16 Reported Oxybutynin Chloride 5 Mg Tablet 1 Tab PO BID 08/21/16 Reported Montelukast Sodium Tablet (Montelukast Sodium) 10 Mg Tablet 10 Mg PO HS 08/21/16 Reported Metoprolol Succinate ( Xl ) (Metoprolol Succinate) 25 Mg Tab.er.24h 1 Tab PO DAILY 08/21/16 Reported Mobic (Meloxicam) 15 Mg Tablet 1 Tab PO DAILY 08/21/16 Reported Loratadine 10 Mg Tablet 1 Tab PO DAILY 08/21/16 Reported Cymbalta (Duloxetine Hcl) 60 Mg Capsule.dr 1 Cap PO BID76 08/21/16 Reported Colace (Docusate Sodium) 100 Mg Capsule 1 Cap PO BID 08/21/16 Reported Alprazolam 1 Mg Tablet 1 Tab PO TID 08/21/16 Reported Align (Bifidobacterium Infantis) 4 Mg Capsule 4 Mg PO HS 08/21/16 Reported Impression . 1. Acute on chronic respiratory failure secondary to underlying pulmonary fibrosis, interstitial lung disease and chronic bronchiectasis. 2. Concurrent superimposed pneumonia and acute exacerbation of COPD leading to increasing shortness of breath. 3. Subjective fever at home. 4. Hypertension. 5. Hyperlipidemia. Plan . PALLIATIVE CARE CONSULTED I HAD CONVERSATION WTIH PT SHE CONFIRMED FULL DNR/DNI HOPEFULLY HOME SOON NEXT WEEK 1. I concur with current broad-coverage antibiotics. 2. Steroids. 3. Nebulized treatments. 4. Oxygen supplementation. 5. The patient is apparently scheduled to see a punchboard filling machine operator at [facility] for further evaluation of her underlying interstitial lung disease. When she is discharged, she will follow up at or with a punchboard filling machine operator at [facility]. LINETTE EDWARDS MD January 19, 2017 15:41
[2017-01-19] MEDS: oxyCODONE IR 5 MG TABLET PO PRN (19:14)
[2017-01-19] MEDS: ALPRAZolam 1 MG TABLET PO SCH (20:08)
[2017-01-19] MEDS: SENNOSIDES/DOCUSATE 8.6/50MG TABLET. PO SCH (20:09)
[2017-01-19] MEDS: LACTOBACILLUS ACIDOPH & BULGAR 1 TABLET. PO SCH (20:09)
[2017-01-19] MEDS: FAMOTIDINE 20 MG TABLET. PO SCH (20:09)
[2017-01-19] MEDS: MONTELUKAST SODIUM 10 MG TABLET. PO SCH (20:09)
[2017-01-19] MEDS: VANCOMYCIN 1.5 GM in IV NORMAL SALINE 500ML BAG 500 ML IV SCH (20:12)
[2017-01-20 03:30] VITALS: BP 135/73
[2017-01-20] MEDS: guaiFENesin/CODEINE 100mg/10mg 5 ML LIQUID PO PRN ×3 (03:40→19:31)
[2017-01-20] MEDS: ALPRAZolam 1 MG TABLET PO PRN ×2 (03:41→11:51)
[2017-01-20] MEDS: oxyCODONE IR 5 MG TABLET PO PRN ×2 (03:41→19:33)
[2017-01-20 05:41] LABS: BASO % 0 % (0-3); EOS % 5 % (0-3); HEMOGLOBIN 11.9 g/dL (12.0-15.5); LYMPH # 1.4 x10^3/uL (1.0-4.8); LYMPH % 18 % (24-48); MEAN CORPUSCULAR HEMOGLOBIN 32 pg (25-35); MEAN CORPUSCULAR HGB CONC 34 g/dL (31-37); MEAN CORPUSCULAR VOLUME 95 fL (79-100); MONO % 9 % (0-9); NEUT % 68 % (31-73); PLATELET COUNT 139 x10^3/uL (140-400); RED BLOOD COUNT 3.68 x10^6/uL (3.50-5.40); RED CELL DISTRIBUTION WIDTH 14.6 % (11.5-14.5)
[2017-01-20 05:50] LABS: CALCIUM 8.9 mg/dL (8.5-10.1); CREATININE 1.2 mg/dL (0.6-1.0); GFR 44.9; POTASSIUM 4.7 mmol/L (3.5-5.1)
[2017-01-20] MEDS: DULoxetine HCL 30 MG CAPSULE.DR PO SCH ×2 (06:11→17:07)
[2017-01-20] MEDS: PIPERACILLIN/TAZOBACTAM 3.375 GM in IV NORMAL SALINE 50ML 50 ML IV SCH ×4 (06:11→23:50)
[2017-01-20] MEDS: IPRATRPIUM/ALBUTEROL 0.5/2.5MG 3 ML NEBU. NEB SCH ×4 (07:17→19:36)
[2017-01-20 07:56] VITALS: BP 137/67
[2017-01-20] MEDS: VANCOMYCIN PER PHARMACY MC PRN ×2 (08:02→22:39)
[2017-01-20] MEDS: ENOXAPARIN 40 MG/0.4 ML SYRINGE. SQ SCH ×2 (08:38→20:52)
[2017-01-20] MEDS: MELOXICAM 7.5 MG TABLET PO SCH (08:44)
[2017-01-20] MEDS: DOCUSATE SODIUM 100 MG CAPSULE. PO SCH ×2 (08:44→20:51)
[2017-01-20] MEDS: PANTOPRAZOLE 40 MG TABLET.DR. PO SCH ×2 (08:44→17:07)
[2017-01-20] MEDS: METOPROLOL SUCC 24HR ER 25 MG TAB.ER.24H. PO SCH (08:44)
[2017-01-20] MEDS: OMEGA-3 FATTY ACIDS/FISH OIL 1,000 MG CAPSULE. PO SCH ×2 (08:45→20:51)
[2017-01-20] MEDS: FUROSEMIDE 20 MG TABLET PO SCH (08:45)
[2017-01-20] MEDS: ESCITALOPRAM 10 MG TABLET. PO SCH (08:45)
[2017-01-20] MEDS: OXYBUTYNIN CHLORIDE 5 MG TABLET PO SCH ×2 (08:45→20:51)
[2017-01-20] MEDS: lamoTRIgine 100 MG TABLET. PO SCH ×2 (08:45→20:51)
[2017-01-20] MEDS: CETIRIZINE HCL 10 MG TABLET. PO SCH (08:45)
[2017-01-20] MEDS: LISINOPRIL 2.5 MG TABLET PO SCH (08:46)
[2017-01-20 10:13] VITALS: BP 118/74
[2017-01-20] MEDS: IV NORMAL SALINE 1000ML BAG 1,000 ML IV SCH (10:20)
[2017-01-20] MEDS: methylPREDNISolone SOD SUCC PF 125 MG/2 ML VIAL. IV SCH ×2 (11:24→20:50)
[2017-01-20] MEDS: BENZONATATE 100 MG CAPSULE. PO SCH ×3 (12:04→20:50)
[2017-01-20] MEDS: guaiFENesin DM 200MG/20MG 10 ML SYRUP PO PRN (12:04)
[2017-01-20] MEDS: LORazepam 0.5 MG TABLET PO SCH ×2 (12:07→20:51)
[2017-01-20] MEDS ORDERED: MORPHINE SULFATE 10 MG/ML VIAL. ONE (13:05)
[2017-01-20] MEDS ORDERED: MORPHINE SULFATE 2 MG/ML DISP.SYRIN. IV PRN (13:15)
--- NOTE | 2017-01-20 13:21 | PDOC ---
PROGRESS NOTES Chief Complaint Chief Complaint SOA History of Present Illness History of Present Illness Pt was lying in bed in NAD Soft voice d/t laryngitis Difficulty breathing - using accessory muscles D/W nurse who reports pt needed Xanax to calm her overnight D/W pt hospice options, pt and understood Vitals Vitals Vital Signs Date Time Temp Pulse Resp B/P (MAP) Pulse Ox O2 Delivery O2 Flow Rate FiO2 01/20/17 12:22 Nasal Cannula 5.0 01/20/17 10:13 98.2 88 23 118/74 (89) 95 98.2 Physical Exam General: Alert, Oriented X3, Cooperative, mild distress Heart: Regular rate, Normal S1, Normal S2, Other (2/6 systolic murmur ) Lungs: Crackles (bilateral) Abdomen: Soft, No tenderness Extremities: No edema, Normal pulses Skin: No breakdown, No significant lesion Labs LABS Laboratory Tests Test 01/19/17 16:01 01/19/17 20:07 01/20/17 05:00 01/20/17 07:52 Glucose (Fingerstick) 85 mg/dL (70-99) 132 mg/dL (70-99) 76 mg/dL (70-99) White Blood Count 8.0 x10^3/uL (4.0-11.0) Red Blood Count 3.68 x10^6/uL (3.50-5.40) Hemoglobin 11.9 g/dL (12.0-15.5) Hematocrit 35.0 % (36.0-47.0) Mean Corpuscular Volume 95 fL (79-100) Mean Corpuscular Hemoglobin 32 pg (25-35) Mean Corpuscular Hemoglobin Concent 34 g/dL (31-37) Red Cell Distribution Width 14.6 % (11.5-14.5) Platelet Count 139 x10^3/uL (140-400) Neutrophils (%) (Auto) 68 % (31-73) Lymphocytes (%) (Auto) 18 % (24-48) Monocytes (%) (Auto) 9 % (0-9) Eosinophils (%) (Auto) 5 % (0-3) Basophils (%) (Auto) 0 % (0-3) Neutrophils # (Auto) 5.5 x10^3uL (1.8-7.7) Lymphocytes # (Auto) 1.4 x10^3/uL (1.0-4.8) Monocytes # (Auto) 0.7 x10^3/uL (0.0-1.1) Eosinophils # (Auto) 0.4 x10^3/uL (0.0-0.7) Basophils # (Auto) 0.0 x10^3/uL (0.0-0.2) Sodium Level 147 mmol/L (136-145) Potassium Level 4.7 mmol/L (3.5-5.1) Chloride Level 111 mmol/L (98-107) Carbon Dioxide Level 31 mmol/L (21-32) Anion Gap 5 (6-14) Blood Urea Nitrogen 24 mg/dL (7-20) Creatinine 1.2 mg/dL (0.6-1.0) Estimated GFR (Cockcroft-Gault) 44.9 Glucose Level 82 mg/dL (70-99) Calcium Level 8.9 mg/dL (8.5-10.1) Test 01/20/17 10:18 Glucose (Fingerstick) 59 mg/dL (70-99) Review of Systems Review of Systems Denies fevers Denies N/V/D Assessment and Plan Assessmemt and Plan Assessment: 1. Acute on chronic respiratory failure secondary to underlying pulmonary fibrosis, interstitial lung disease and chronic bronchiectasis. 2. Concurrent superimposed pneumonia and acute exacerbation of COPD leading to increasing shortness of breath. 3. Subjective fever at home. 4. Hypertension. 5. Hyperlipidemia. 6. DM Plan: Start Solumedrol 60 mg Q12hrs Start [place] perles Continue breathing txs Continue abx Check labs in am PT/OT Palliative care consulted Disp: pt is scheduled to see specialists at when she is d/c Problems: Comment Review of Relevant I have reviewed the following items jared (where applicable) has been applied. Labs Laboratory Tests Test 01/18/17 17:19 01/18/17 20:54 01/19/17 04:15 01/19/17 07:17 Glucose (Fingerstick) 99 mg/dL (70-99) 105 mg/dL (70-99) 85 mg/dL (70-99) White Blood Count 9.4 x10^3/uL (4.0-11.0) Red Blood Count 3.44 x10^6/uL (3.50-5.40) Hemoglobin 10.7 g/dL (12.0-15.5) Hematocrit 32.8 % (36.0-47.0) Mean Corpuscular Volume 95 fL (79-100) Mean Corpuscular Hemoglobin 31 pg (25-35) Mean Corpuscular Hemoglobin Concent 33 g/dL (31-37) Red Cell Distribution Width 14.0 % (11.5-14.5) Platelet Count 146 x10^3/uL (140-400) Neutrophils (%) (Auto) 73 % (31-73) Lymphocytes (%) (Auto) 16 % (24-48) Monocytes (%) (Auto) 9 % (0-9) Eosinophils (%) (Auto) 2 % (0-3) Basophils (%) (Auto) 0 % (0-3) Neutrophils # (Auto) 6.8 x10^3uL (1.8-7.7) Lymphocytes # (Auto) 1.5 x10^3/uL (1.0-4.8) Monocytes # (Auto) 0.9 x10^3/uL (0.0-1.1) Eosinophils # (Auto) 0.2 x10^3/uL (0.0-0.7) Basophils # (Auto) 0.0 x10^3/uL (0.0-0.2) Sodium Level 147 mmol/L (136-145) Potassium Level 4.4 mmol/L (3.5-5.1) Chloride Level 110 mmol/L (98-107) Carbon Dioxide Level 31 mmol/L (21-32) Anion Gap 6 (6-14) Blood Urea Nitrogen 32 mg/dL (7-20) Creatinine 1.3 mg/dL (0.6-1.0) Estimated GFR (Cockcroft-Gault) 41.0 Glucose Level 99 mg/dL (70-99) Calcium Level 8.3 mg/dL (8.5-10.1) FF-Wcc-U-Type Natriuretic Peptide 1432 pg/mL (0-124) Vancomycin Level Trough 30.6 mcg/mL (10.0-20.0) Vancomycin Last Dose Date Vancomycin Last Dose Time 1600 Test 01/19/17 11:28 01/19/17 16:01 01/19/17 20:07 01/20/17 05:00 Glucose (Fingerstick) 125 mg/dL (70-99) 85 mg/dL (70-99) 132 mg/dL (70-99) White Blood Count 8.0 x10^3/uL (4.0-11.0) Red Blood Count 3.68 x10^6/uL (3.50-5.40) Hemoglobin 11.9 g/dL (12.0-15.5) Hematocrit 35.0 % (36.0-47.0) Mean Corpuscular Volume 95 fL (79-100) Mean Corpuscular Hemoglobin 32 pg (25-35) Mean Corpuscular Hemoglobin Concent 34 g/dL (31-37) Red Cell Distribution Width 14.6 % (11.5-14.5) Platelet Count 139 x10^3/uL (140-400) Neutrophils (%) (Auto) 68 % (31-73) Lymphocytes (%) (Auto) 18 % (24-48) Monocytes (%) (Auto) 9 % (0-9) Eosinophils (%) (Auto) 5 % (0-3) Basophils (%) (Auto) 0 % (0-3) Neutrophils # (Auto) 5.5 x10^3uL (1.8-7.7) Lymphocytes # (Auto) 1.4 x10^3/uL (1.0-4.8) Monocytes # (Auto) 0.7 x10^3/uL (0.0-1.1) Eosinophils # (Auto) 0.4 x10^3/uL (0.0-0.7) Basophils # (Auto) 0.0 x10^3/uL (0.0-0.2) Sodium Level 147 mmol/L (136-145) Potassium Level 4.7 mmol/L (3.5-5.1) Chloride Level 111 mmol/L (98-107) Carbon Dioxide Level 31 mmol/L (21-32) Anion Gap 5 (6-14) Blood Urea Nitrogen 24 mg/dL (7-20) Creatinine 1.2 mg/dL (0.6-1.0) Estimated GFR (Cockcroft-Gault) 44.9 Glucose Level 82 mg/dL (70-99) Calcium Level 8.9 mg/dL (8.5-10.1) Test 01/20/17 07:52 01/20/17 10:18 Glucose (Fingerstick) 76 mg/dL (70-99) 59 mg/dL (70-99) Laboratory Tests Test 01/19/17 16:01 01/19/17 20:07 01/20/17 05:00 01/20/17 07:52 Glucose (Fingerstick) 85 mg/dL (70-99) 132 mg/dL (70-99) 76 mg/dL (70-99) White Blood Count 8.0 x10^3/uL (4.0-11.0) Red Blood Count 3.68 x10^6/uL (3.50-5.40) Hemoglobin 11.9 g/dL (12.0-15.5) Hematocrit 35.0 % (36.0-47.0) Mean Corpuscular Volume 95 fL (79-100) Mean Corpuscular Hemoglobin 32 pg (25-35) Mean Corpuscular Hemoglobin Concent 34 g/dL (31-37) Red Cell Distribution Width 14.6 % (11.5-14.5) Platelet Count 139 x10^3/uL (140-400) Neutrophils (%) (Auto) 68 % (31-73) Lymphocytes (%) (Auto) 18 % (24-48) Monocytes (%) (Auto) 9 % (0-9) Eosinophils (%) (Auto) 5 % (0-3) Basophils (%) (Auto) 0 % (0-3) Neutrophils # (Auto) 5.5 x10^3uL (1.8-7.7) Lymphocytes # (Auto) 1.4 x10^3/uL (1.0-4.8) Monocytes # (Auto) 0.7 x10^3/uL (0.0-1.1) Eosinophils # (Auto) 0.4 x10^3/uL (0.0-0.7) Basophils # (Auto) 0.0 x10^3/uL (0.0-0.2) Sodium Level 147 mmol/L (136-145) Potassium Level 4.7 mmol/L (3.5-5.1) Chloride Level 111 mmol/L (98-107) Carbon Dioxide Level 31 mmol/L (21-32) Anion Gap 5 (6-14) Blood Urea Nitrogen 24 mg/dL (7-20) Creatinine 1.2 mg/dL (0.6-1.0) Estimated GFR (Cockcroft-Gault) 44.9 Glucose Level 82 mg/dL (70-99) Calcium Level 8.9 mg/dL (8.5-10.1) Test 01/20/17 10:18 Glucose (Fingerstick) 59 mg/dL (70-99) Medications Current Medications Sodium Chloride 1,000 ml @ 60 mls/hr [id number] IV Last administered on 06:26; Start 01/16/17 at 23:00 Ondansetron HCl (Zofran) 4 mg PRN Q6HRS PRN IV NAUSEA/VOMITING; Start 01/16/17 at 23:00; Stop 01/17/17 at 13:31; Status DC Oxycodone HCl (Roxicodone) 10 mg PRN Q8HRS PRN PO SEVERE PAIN; Start 01/16/17 at 23:00; Stop 01/19/17 at 09:42; Status DC Acetaminophen (Tylenol) 650 mg PRN Q6HRS PRN PO Headaches, Temp > 101.5F; Start 01/16/17 at 22:45; Stop 01/17/17 at 10:06; Status DC Docusate Sodium (Colace) 100 mg BID PO ; Start 01/17/17 at 09:00; Stop 01/17/17 at 13:31; Status DC Enoxaparin Sodium (Lovenox 40mg Syringe) 40 mg Q24H SQ Last administered on 00:33; Start 01/16/17 at 23:00; Stop 01/17/17 at 10:01; Status DC Hydrocortisone Sodium Succinate (Solu-CORTEF) 60 mg Q12HR IV Last administered on 01/17/17 09:42; Start 01/17/17 at 09:00; Stop 01/17/17 at 13:29; Status DC Famotidine (Pepcid) 20 mg QHS PO ; Start 01/17/17 at 21:00; Stop 01/17/17 at 21: 00; Status DC Albuterol/ Ipratropium (Duoneb) 3 ml RTQID NEB Last administered on 01/20/17 12:21; Start 01/17/17 at 08:00 Alprazolam (Xanax) 1 mg PRN Q8HRS PRN PO ANXIETY / AGITATION Last administered on 01/20/17 11:51; Start 01/17/17 at 00:15 Albuterol/ Ipratropium (Duoneb) 3 ml 1X ONCE NEB Last administered on 02:49; Start 01/17/17 at 02:45; Stop 01/17/17 at 02:46; Status DC Guaifenesin (Robitussin Dm) 10 ml PRN Q6HRS PRN PO COUGH Last administered on 12:04; Start 01/17/17 at 02:45 Enoxaparin Sodium (Lovenox 40mg Syringe) 40 mg BID SQ Last administered on 01/20 08:38; Start 01/17/17 at 21:00 Acetaminophen (Tylenol) 325 mg PRN Q6HRS PRN PO MILD PAIN / TEMP; Start at 10:15 Acetaminophen/ Hydrocodone Bitart (Lortab 5/325) 1 tab PRN Q6HRS PRN PO MODERATE PAIN Last administered on 01/19/17 15:16; Start 01/17/17 at 10:15 Hydralazine HCl (Apresoline) 10 mg PRN Q4HRS PRN IVP ELEVATED BP, SEE COMMENTS ; Start 01/17/17 at 10:15 Ondansetron HCl (Zofran) 4 mg PRN Q8HRS PRN IV NAUSEA/VOMITING; Start 01/17/17 at 10:15 Albuterol Sulfate (Ventolin Neb Soln) 2.5 mg PRN Q4HRS PRN NEB SHORTNESS OF BREATH Last administered on 01/19/17 08:29; Start 01/17/17 at 10:15 Methylprednisolone Sodium Succinate (SOLU-Medrol 40MG VIAL) 40 mg Q8HRS IV Last administered on 01/17/17 21:04; Start 01/17/17 at 14:00; Stop 01/17/17 at 21:53; Status DC Piperacillin Sod/ Tazobactam Sod 3.375 gm/Sodium Chloride 50 ml @ 100 mls/hr Q6HRS IV Last administered on 01/20/17 11:51; Start 01/17/17 at 18:00 Levofloxacin/ Dextrose 150 ml @ 100 mls/hr Q24H IV Last administered on 12:37; Start 01/17/17 at 13:30 Vancomycin HCl (Vanco Per Pharmacy) 1 each PRN DAILY PRN MC SEE COMMENTS Last administered on 01/20/17 08:02; Start 01/17/17 at 13:15 Guaifenesin/ Codeine Phosphate (Robitussin Ac) 5 ml PRN Q6HRS PRN PO COUGH Last administered on 01/20/17 03:40; Start 01/17/17 at 13:15 Vancomycin HCl 2 gm/Sodium Chloride 500 ml @ 250 mls/hr 1X ONCE IV Last administered on 01/17/17 15:21; Start 01/17/17 at 13:30; Stop 01/17/17 at 15:29 ; Status DC Docusate Sodium (Colace) 100 mg BID PO Last administered on 01/20/17 08:44; Start 01/17/17 at 21:00 Furosemide (Lasix) 20 mg DAILY PO Last administered on 01/20/17 08:45; Start 01/17/17 at 14:00 Lisinopril (Prinivil) 2.5 mg DAILY PO Last administered on 01/20/17 08:46; Start 01/17/17 at 14:00 Metoprolol Succinate (Toprol Xl) 25 mg DAILY PO Last administered on 01/20/17 08:44; Start 01/17/17 at 14:00 Montelukast Sodium (Singulair) 10 mg HS PO Last administered on 01/19/17 20:09 ; Start 01/17/17 at 21:00 Oxybutynin Chloride (Ditropan) 5 mg BID PO Last administered on 01/20/17 08:45 ; Start 01/17/17 at 14:00 Pantoprazole Sodium (Protonix) 40 mg BIDAC PO Last administered on 01/20/17 08 :44; Start 01/17/17 at 16:30 Senna/Docusate Sodium (Senna Plus) 1 tab QHS PO Last administered on 01/19/17 20:09; Start 01/17/17 at 21:00 Alprazolam (Xanax) 3 mg QHS PO Last administered on 01/19/17 20:08; Start at 21:00 Lactobacillus Acidophilus (Bacid, Jodi-Bid) 2 tab QHS PO Last administered on 20:09; Start 01/17/17 at 21:00 Duloxetine HCl (Cymbalta) 60 mg BID76 PO Last administered on 01/20/17 06:11; Start 01/17/17 at 18:00 Escitalopram Oxalate (Lexapro) 20 mg DAILY PO Last administered on 01/20/17 08 :45; Start 01/18/17 at 09:00 Famotidine (Pepcid) 40 mg QHS PO Last administered on 01/19/17 20:09; Start at 21:00 Lamotrigine (LaMICtal) 200 mg BID PO Last administered on 01/20/17 08:45; Start 01/17/17 at 21:00 Cetirizine HCl (ZyrTEC) 10 mg DAILY PO Last administered on 01/20/17 08:45; Start 01/18/17 at 09:00 Meloxicam (Mobic) 15 mg DAILY PO Last administered on 01/20/17 08:44; Start at 14:00 Fish Oil (Fish Oil) 1,000 mg BID PO Last administered on 01/20/17 08:45; Start 01/17/17 at 21:00 Oxycodone HCl (Roxicodone) 20 mg PRN TID PRN PO PAIN Last administered on 03:41; Start 01/17/17 at 13:45 Oxycodone HCl (Roxicodone) 40 mg PRN TID PRN PO PAIN; Start 01/17/17 at 13:45 Sertraline HCl (Zoloft) 200 mg DAILY PO ; Start 01/18/17 at 09:00; Status Cancel Vancomycin HCl 1.5 gm/Sodium Chloride 500 ml @ 250 mls/hr Q12H IV Last administered on 01/18/17 16:21; Start 01/18/17 at 04:00; Stop 01/19/17 at 04:58 ; Status DC Vancomycin HCl 1 each 1X ONCE MC Last administered on 01/19/17 03:30; Start 01/19/17 at 03:30; Stop 01/19/17 at 03:31; Status DC Vancomycin HCl 1.5 gm/Sodium Chloride 500 ml @ 250 mls/hr Q24H IV Last administered on 01/19/17 20:12; Start 01/19/17 at 21:00 Vancomycin HCl 1 each 1X ONCE MC ; Start 01/20/17 at 20:30; Stop 01/20/17 at 20 :31 Methylprednisolone Sodium Succinate (SOLU-Medrol 125MG VIAL) 60 mg Q12HR IV Last administered on 01/20/17 11:24; Start 01/20/17 at 11:00 Benzonatate (Tessalon Perle) 200 mg TID PO Last administered on 01/20/17 12:04 ; Start 01/20/17 at 12:00 Lorazepam (Ativan) 0.5 mg BID PO ; Start 01/20/17 at 12:30 Morphine Sulfate 2 mg PRN Q1HR PRN IV PAIN; Start 01/20/17 at 13:15 Morphine Sulfate 10 mg STK-MED ONCE .ROUTE ; Start 01/20/17 at 13:05; Stop 01/20 at 13:06; Status DC Active Scripts Active Reported Oxycodone Hcl 10 Mg Tablet 20 Mg PO TID PRN Symbicort 160-4.5 Mcg Inhaler (Budesonide/Formoterol Fumarate) 10.2 Gm Hfa.aer.ad 2 Puff IH BID Alprazolam 2 Mg Tablet 1.5 Tab PO QHS Senna Plus Tablet (Sennosides/Docusate Sodium) 1 Each Tablet 1 Each PO QHS Prednisone 20 Mg Tablet 1 Tab PO DAILY Lisinopril 2.5 Mg Tablet 1 Tab PO DAILY Lamotrigine 200 Mg Tablet 1 Tab PO BID Furosemide 20 Mg Tablet 1 Tab PO DAILY Famotidine 40 Mg Tablet 40 Mg PO HS Lexapro (Escitalopram Oxalate) 20 Mg Tablet 25 Mg PO DAILY Phentermine Hcl 37.5 Mg Tablet 1 Tab PO PRN BID PRN Actonel (Risedronate Sodium) 150 Mg Tablet 1 Tab PO QMONTH Miralax (Polyethylene Glycol 3350) 17 Gm Powd.pack 1 Packet PO DAILY PRN Olopatadine HCl 30.5 Gm [facility].pump 30.5 Gm NS DAILY Flonase Allergy Relief (Fluticasone Propionate) 9.9 Ml [facility].susp 1 Sprays NS BID FENTANYL 100mcg/hr (Fentanyl) 1 Each Patch.td72 1 Patch TD Q72H Proair Hfa Inhaler (Albuterol Sulfate) 8.5 Gm Hfa.aer.ad 2 Puff INH QID PRN [place]-3 ([place]-3 Fatty Acids) 1,000 Mg Capsule 1,000 Mg PO BID Multi-Vitamin Daily (Multivitamin) 1 Each Tablet 1 Each PO Glucosamine 1,500 Complex Cp (Gluc Becerril/Chondro Becerril A/Vit C/Mn) 1 Each Capsule 1 Each PO BID Calcium Carbonate 600 Mg Tablet 600 Mg PO BID Zoloft (Sertraline Hcl) 100 Mg Tablet 2 Tab PO DAILY Protonix (Pantoprazole Sodium) 40 Mg Tablet.dr 1 Tab PO BID Oxycodone Hcl 20 Mg Tablet 40 Mg PO TID PRN Oxybutynin Chloride 5 Mg Tablet 1 Tab PO BID Montelukast Sodium Tablet (Montelukast Sodium) 10 Mg Tablet 10 Mg PO HS Metoprolol Succinate ( Xl ) (Metoprolol Succinate) 25 Mg Tab.er.24h 1 Tab PO DAILY Mobic (Meloxicam) 15 Mg Tablet 1 Tab PO DAILY Loratadine 10 Mg Tablet 1 Tab PO DAILY Cymbalta (Duloxetine Hcl) 60 Mg Capsule.dr 1 Cap PO BID76 Colace (Docusate Sodium) 100 Mg Capsule 1 Cap PO BID Alprazolam 1 Mg Tablet 1 Tab PO TID Align (Bifidobacterium Infantis) 4 Mg Capsule 4 Mg PO HS Vitals/I & O Vital Sign - Last 24 Hours 01/19/17 01/19/17 01/19/17 01/19/17 15:01 15:16 15:37 16:16 Temp 98.2 98.2 Pulse 88 Resp 22 B/P (MAP) 92/30 (50) Pulse Ox 94 94 94 94 O2 Delivery Nasal Cannula Nasal Cannula Nasal Cannula Nasal Cannula O2 Flow Rate 5.0 4.0 4.0 4.0 01/19/17 01/19/17 01/19/17 01/19/17 19:14 19:30 19:55 20:00 Temp 98.2 98.2 Pulse 80 Resp 24 17 B/P (MAP) 95/55 (68) Pulse Ox 96 93 O2 Delivery Nasal Cannula Nasal Cannula Nasal Cannula Nasal Cannula O2 Flow Rate 5.0 5.0 5.0 4.0 01/19/17 01/19/17 01/20/17 01/20/17 20:14 23:30 03:30 03:41 Temp 97.7 97.1 97.7 97.1 Pulse 87 88 Resp 18 23 24 B/P (MAP) 126/72 (90) 135/73 (93) Pulse Ox 93 96 98 O2 Delivery Nasal Cannula Nasal Cannula Nasal Cannula O2 Flow Rate 5.0 5.0 5.0 01/20/17 01/20/17 01/20/17 01/20/17 04:41 07:19 07:56 08:00 Temp 98.0 98.0 Pulse 89 Resp 22 23 B/P (MAP) 137/67 (90) Pulse Ox 100 96 O2 Delivery Nasal Cannula Nasal Cannula Nasal Cannula Nasal Cannula O2 Flow Rate 5.0 5.0 5.0 5.0 01/20/17 01/20/17 01/20/17 01/20/17 08:44 08:46 10:13 12:22 Temp 98.2 98.2 Pulse 89 89 88 Resp 23 B/P (MAP) 137/67 137/67 118/74 (89) Pulse Ox 95 O2 Delivery Nasal Cannula Nasal Cannula O2 Flow Rate 5.0 5.0 Intake and Output 01/19/17 01/19/17 01/20/17 15:00 23:00 07:00 Intake Total 700 ml 200 ml Output Total 550 ml 1000 ml Balance 150 ml -800 ml CASTCHARITY,NIAL K III DO January 20, 2017 13:21
[2017-01-20] MEDS ORDERED: MORPHINE SULFATE 10 MG/ML VIAL. IV ONE (13:30)
[2017-01-20 14:59] VITALS: BP 126/57
[2017-01-20 19:36] VITALS: BP 121/72
[2017-01-20] MEDS: FAMOTIDINE 20 MG TABLET. PO SCH (20:51)
[2017-01-20] MEDS: MONTELUKAST SODIUM 10 MG TABLET. PO SCH (20:51)
[2017-01-20] MEDS: SENNOSIDES/DOCUSATE 8.6/50MG TABLET. PO SCH (20:51)
[2017-01-20] MEDS: LACTOBACILLUS ACIDOPH & BULGAR 1 TABLET. PO SCH (20:51)
[2017-01-20] MEDS: ALPRAZolam 1 MG TABLET PO SCH (20:52)
[2017-01-20] MEDS: VANCOMYCIN 1.5 GM in IV NORMAL SALINE 500ML BAG 500 ML IV SCH (21:42)
[2017-01-20 23:21] VITALS: BP 111/59
[2017-01-21] MEDS: IV NORMAL SALINE 1000ML BAG 1,000 ML IV SCH ×2 (02:18→19:40)
[2017-01-21 03:30] VITALS: BP 126/66
[2017-01-21] MEDS: guaiFENesin/CODEINE 100mg/10mg 5 ML LIQUID PO PRN (03:42)
[2017-01-21] MEDS: oxyCODONE IR 5 MG TABLET PO PRN (03:43)
[2017-01-21 04:22] LABS: CREATININE 1.2 mg/dL (0.6-1.0); GFR 44.9; POTASSIUM 5.3 mmol/L (3.5-5.1)
[2017-01-21] MEDS: ALBUTEROL SULFATE 2.5 MG/3 ML NEBU. NEB PRN ×2 (04:57→20:59)
[2017-01-21] MEDS: DULoxetine HCL 30 MG CAPSULE.DR PO SCH ×2 (06:03→17:50)
[2017-01-21] MEDS: PIPERACILLIN/TAZOBACTAM 3.375 GM in IV NORMAL SALINE 50ML 50 ML IV SCH ×3 (06:03→20:04)
[2017-01-21 07:16] VITALS: BP 140/76
[2017-01-21] MEDS: IPRATRPIUM/ALBUTEROL 0.5/2.5MG 3 ML NEBU. NEB SCH ×4 (07:44→19:40)
--- NOTE | 2017-01-21 07:55 | PDOC ---
PULMONARY PROGRESS NOTES Subjective PT STILL SOA, COUGH AT TIMES BAD Vitals Vital Signs Date Time Temp Pulse Resp B/P (MAP) Pulse Ox O2 Delivery O2 Flow Rate FiO2 01/21/17 07:46 100 Nasal Cannula 4.0 01/21/17 07:16 97.6 70 23 140/76 (97) 97.6 ROS: No Nausea, No Chest Pain, No Abdominal Pain Lungs: Crackles (bilateral) Cardiovascular: S1, S2 Abdomen: Soft Neuro Exam: Alert Extremities: No Edema Skin: Warm Labs Laboratory Tests Test 01/19/17 11:28 01/19/17 16:01 01/19/17 20:07 01/20/17 05:00 Glucose (Fingerstick) 125 mg/dL (70-99) 85 mg/dL (70-99) 132 mg/dL (70-99) White Blood Count 8.0 x10^3/uL (4.0-11.0) Red Blood Count 3.68 x10^6/uL (3.50-5.40) Hemoglobin 11.9 g/dL (12.0-15.5) Hematocrit 35.0 % (36.0-47.0) Mean Corpuscular Volume 95 fL (79-100) Mean Corpuscular Hemoglobin 32 pg (25-35) Mean Corpuscular Hemoglobin Concent 34 g/dL (31-37) Red Cell Distribution Width 14.6 % (11.5-14.5) Platelet Count 139 x10^3/uL (140-400) Neutrophils (%) (Auto) 68 % (31-73) Lymphocytes (%) (Auto) 18 % (24-48) Monocytes (%) (Auto) 9 % (0-9) Eosinophils (%) (Auto) 5 % (0-3) Basophils (%) (Auto) 0 % (0-3) Neutrophils # (Auto) 5.5 x10^3uL (1.8-7.7) Lymphocytes # (Auto) 1.4 x10^3/uL (1.0-4.8) Monocytes # (Auto) 0.7 x10^3/uL (0.0-1.1) Eosinophils # (Auto) 0.4 x10^3/uL (0.0-0.7) Basophils # (Auto) 0.0 x10^3/uL (0.0-0.2) Sodium Level 147 mmol/L (136-145) Potassium Level 4.7 mmol/L (3.5-5.1) Chloride Level 111 mmol/L (98-107) Carbon Dioxide Level 31 mmol/L (21-32) Anion Gap 5 (6-14) Blood Urea Nitrogen 24 mg/dL (7-20) Creatinine 1.2 mg/dL (0.6-1.0) Estimated GFR (Cockcroft-Gault) 44.9 Glucose Level 82 mg/dL (70-99) Calcium Level 8.9 mg/dL (8.5-10.1) Test 01/20/17 07:52 01/20/17 10:18 01/20/17 16:54 01/20/17 20:09 Glucose (Fingerstick) 76 mg/dL (70-99) 59 mg/dL (70-99) 134 mg/dL (70-99) Vancomycin Level Trough 18.5 mcg/mL (10.0-20.0) Vancomycin Last Dose Date 01/19/17 Vancomycin Last Dose Time 2100 Test 01/20/17 20:52 01/21/17 03:30 01/21/17 07:18 Glucose (Fingerstick) 146 mg/dL (70-99) 128 mg/dL (70-99) Sodium Level 145 mmol/L (136-145) Potassium Level 5.3 mmol/L (3.5-5.1) Chloride Level 106 mmol/L (98-107) Carbon Dioxide Level 32 mmol/L (21-32) Anion Gap 7 (6-14) Blood Urea Nitrogen 24 mg/dL (7-20) Creatinine 1.2 mg/dL (0.6-1.0) Estimated GFR (Cockcroft-Gault) 44.9 Glucose Level 135 mg/dL (70-99) Calcium Level 9.0 mg/dL (8.5-10.1) Laboratory Tests Test 01/20/17 10:18 01/20/17 16:54 01/20/17 20:09 01/20/17 20:52 Glucose (Fingerstick) 59 mg/dL (70-99) 134 mg/dL (70-99) 146 mg/dL (70-99) Vancomycin Level Trough 18.5 mcg/mL (10.0-20.0) Vancomycin Last Dose Date 01/19/17 Vancomycin Last Dose Time 2100 Test 01/21/17 03:30 01/21/17 07:18 Sodium Level 145 mmol/L (136-145) Potassium Level 5.3 mmol/L (3.5-5.1) Chloride Level 106 mmol/L (98-107) Carbon Dioxide Level 32 mmol/L (21-32) Anion Gap 7 (6-14) Blood Urea Nitrogen 24 mg/dL (7-20) Creatinine 1.2 mg/dL (0.6-1.0) Estimated GFR (Cockcroft-Gault) 44.9 Glucose Level 135 mg/dL (70-99) Calcium Level 9.0 mg/dL (8.5-10.1) Glucose (Fingerstick) 128 mg/dL (70-99) Medications Active Scripts Medications Dose Route/Sig Max Daily Dose Days Date Category Oxycodone Hcl 10 Mg Tablet 20 Mg PO TID PRN 01/17/17 Reported Symbicort 160-4.5 Mcg Inhaler (Budesonide/Formoterol Fumarate) 10.2 Gm Hfa.aer.ad 2 Puff IH BID 01/17/17 Reported Alprazolam 2 Mg Tablet 1.5 Tab PO QHS 01/17/17 Reported Senna Plus Tablet (Sennosides/Docusate Sodium) 1 Each Tablet 1 Each PO QHS 01/17/17 Reported Prednisone 20 Mg Tablet 1 Tab PO DAILY 01/17/17 Reported Lisinopril 2.5 Mg Tablet 1 Tab PO DAILY 01/17/17 Reported Lamotrigine 200 Mg Tablet 1 Tab PO BID 01/17/17 Reported Furosemide 20 Mg Tablet 1 Tab PO DAILY 01/17/17 Reported Famotidine 40 Mg Tablet 40 Mg PO HS 01/17/17 Reported Lexapro (Escitalopram Oxalate) 20 Mg Tablet 25 Mg PO DAILY 01/17/17 Reported Phentermine Hcl 37.5 Mg Tablet 1 Tab PO PRN BID PRN 08/21/16 Reported Actonel (Risedronate Sodium) 150 Mg Tablet 1 Tab PO QMONTH 08/21/16 Reported Miralax (Polyethylene Glycol 3350) 17 Gm Powd.pack 1 Packet PO DAILY PRN 08/21/16 Reported Olopatadine HCl 30.5 Gm [place].pump 30.5 Gm NS DAILY 08/21/16 Reported Flonase Allergy Relief (Fluticasone Propionate) 9.9 Ml [place].susp 1 Sprays NS BID 08/21/16 Reported FENTANYL 100mcg/hr (Fentanyl) 1 Each Patch.td72 1 Patch TD Q72H 08/21/16 Reported Proair Hfa Inhaler (Albuterol Sulfate) 8.5 Gm Hfa.aer.ad 2 Puff INH QID PRN 08/21/16 Reported Valier-3 (Valier-3 Fatty Acids) 1,000 Mg Capsule 1,000 Mg PO BID 08/21/16 Reported Multi-Vitamin Daily (Multivitamin) 1 Each Tablet 1 Each PO 08/21/16 Reported Glucosamine 1,500 Complex Cp (Gluc Becerril/Chondro Becerril A/Vit C/Mn) 1 Each Capsule 1 Each PO BID 08/21/16 Reported Calcium Carbonate 600 Mg Tablet 600 Mg PO BID 08/21/16 Reported Zoloft (Sertraline Hcl) 100 Mg Tablet 2 Tab PO DAILY 08/21/16 Reported Protonix (Pantoprazole Sodium) 40 Mg Tablet.dr 1 Tab PO BID 08/21/16 Reported Oxycodone Hcl 20 Mg Tablet 40 Mg PO TID PRN 08/21/16 Reported Oxybutynin Chloride 5 Mg Tablet 1 Tab PO BID 08/21/16 Reported Montelukast Sodium Tablet (Montelukast Sodium) 10 Mg Tablet 10 Mg PO HS 08/21/16 Reported Metoprolol Succinate ( Xl ) (Metoprolol Succinate) 25 Mg Tab.er.24h 1 Tab PO DAILY 08/21/16 Reported Mobic (Meloxicam) 15 Mg Tablet 1 Tab PO DAILY 08/21/16 Reported Loratadine 10 Mg Tablet 1 Tab PO DAILY 08/21/16 Reported Cymbalta (Duloxetine Hcl) 60 Mg Capsule.dr 1 Cap PO BID76 08/21/16 Reported Colace (Docusate Sodium) 100 Mg Capsule 1 Cap PO BID 08/21/16 Reported Alprazolam 1 Mg Tablet 1 Tab PO TID 08/21/16 Reported Align (Bifidobacterium Infantis) 4 Mg Capsule 4 Mg PO HS 08/21/16 Reported Impression . 1. Acute on chronic respiratory failure secondary to underlying pulmonary fibrosis, interstitial lung disease and chronic bronchiectasis. 2. Concurrent superimposed pneumonia and acute exacerbation of COPD leading toincreasing shortness of breath. 3. Subjective fever at home. 4. Hypertension. 5. Hyperlipidemia. 6. Cough sec to above Plan . PT BETTER WITH INCREASE SOLUMEDROL WILL INCREASE FREQUENCY OF COUGH SUPPRESSANT CONTINUE 02 MORPHINE PRN DNR/DNI DVT PROPHYLAXIS LINETTE EDWARDS MD January 21, 2017 07:54
[2017-01-21] MEDS: ENOXAPARIN 40 MG/0.4 ML SYRINGE. SQ SCH ×2 (08:58→22:05)
[2017-01-21] MEDS: MELOXICAM 7.5 MG TABLET PO SCH (08:58)
[2017-01-21] MEDS: METOPROLOL SUCC 24HR ER 25 MG TAB.ER.24H. PO SCH (08:59)
[2017-01-21] MEDS: lamoTRIgine 100 MG TABLET. PO SCH ×2 (08:59→21:00)
[2017-01-21] MEDS: LISINOPRIL 2.5 MG TABLET PO SCH (08:59)
[2017-01-21] MEDS: OXYBUTYNIN CHLORIDE 5 MG TABLET PO SCH ×2 (08:59→21:00)
[2017-01-21] MEDS: FUROSEMIDE 20 MG TABLET PO SCH (08:59)
[2017-01-21] MEDS: DOCUSATE SODIUM 100 MG CAPSULE. PO SCH ×2 (08:59→21:00)
[2017-01-21] MEDS: ESCITALOPRAM 10 MG TABLET. PO SCH (09:00)
[2017-01-21] MEDS: CETIRIZINE HCL 10 MG TABLET. PO SCH (09:00)
[2017-01-21] MEDS: PANTOPRAZOLE 40 MG TABLET.DR. PO SCH ×2 (09:00→17:50)
[2017-01-21] MEDS: OMEGA-3 FATTY ACIDS/FISH OIL 1,000 MG CAPSULE. PO SCH ×2 (09:00→21:00)
[2017-01-21] MEDS: LORazepam 0.5 MG TABLET PO SCH (09:05)
[2017-01-21] MEDS: BENZONATATE 100 MG CAPSULE. PO SCH ×3 (09:05→21:00)
[2017-01-21] MEDS: PROMETH/CODEINE 6.25/10MG 5 ML SYRUP. PO PRN ×3 (09:05→17:52)
[2017-01-21] MEDS: methylPREDNISolone SOD SUCC PF 125 MG/2 ML VIAL. IV SCH ×2 (09:05→22:01)
[2017-01-21 09:54] LABS: BASO % 0 % (0-3); EOS % 0 % (0-3); HEMATOCRIT 34.4 % (36.0-47.0); HEMOGLOBIN 11.3 g/dL (12.0-15.5); LYMPH # 0.6 x10^3/uL (1.0-4.8); LYMPH % 9 % (24-48); MEAN CORPUSCULAR HEMOGLOBIN 32 pg (25-35); MEAN CORPUSCULAR HGB CONC 33 g/dL (31-37); MEAN CORPUSCULAR VOLUME 96 fL (79-100); MONO % 1 % (0-9); NEUT % 89 % (31-73); PLATELET COUNT 158 x10^3/uL (140-400); RED BLOOD COUNT 3.59 x10^6/uL (3.50-5.40); RED CELL DISTRIBUTION WIDTH 14.7 % (11.5-14.5); WHITE BLOOD COUNT 6.8 x10^3/uL (4.0-11.0)
[2017-01-21 10:47] VITALS: BP 131/59
--- NOTE | 2017-01-21 13:43 | PDOC ---
PROGRESS NOTES Chief Complaint Chief Complaint SOA History of Present Illness History of Present Illness Pt was sitting up receiving breathing tx NAD Improved respiratory effort RN reports pt felt better after Solumedrol was started Vitals Vitals Vital Signs Date Time Temp Pulse Resp B/P (MAP) Pulse Ox O2 Delivery O2 Flow Rate FiO2 01/21/17 12:05 Nasal Cannula 4.0 01/21/17 10:47 97.9 91 24 131/59 (83) 94 97.9 Physical Exam General: Alert, Oriented X3, Cooperative, mild distress Heart: Regular rate, Normal S1, Normal S2, Other (2/6 systolic murmur ) Lungs: Crackles (bilateral - improved slightly) Abdomen: Soft, No tenderness Extremities: No edema, Normal pulses Skin: No breakdown, No significant lesion Labs LABS Laboratory Tests Test 01/20/17 16:54 01/20/17 20:09 01/20/17 20:52 01/21/17 03:30 Glucose (Fingerstick) 134 mg/dL (70-99) 146 mg/dL (70-99) Vancomycin Level Trough 18.5 mcg/mL (10.0-20.0) Vancomycin Last Dose Date 01/19/17 Vancomycin Last Dose Time 2100 Sodium Level 145 mmol/L (136-145) Potassium Level 5.3 mmol/L (3.5-5.1) Chloride Level 106 mmol/L (98-107) Carbon Dioxide Level 32 mmol/L (21-32) Anion Gap 7 (6-14) Blood Urea Nitrogen 24 mg/dL (7-20) Creatinine 1.2 mg/dL (0.6-1.0) Estimated GFR (Cockcroft-Gault) 44.9 Glucose Level 135 mg/dL (70-99) Calcium Level 9.0 mg/dL (8.5-10.1) Test 01/21/17 05:00 01/21/17 07:18 01/21/17 10:51 White Blood Count 6.8 x10^3/uL (4.0-11.0) Red Blood Count 3.59 x10^6/uL (3.50-5.40) Hemoglobin 11.3 g/dL (12.0-15.5) Hematocrit 34.4 % (36.0-47.0) Mean Corpuscular Volume 96 fL (79-100) Mean Corpuscular Hemoglobin 32 pg (25-35) Mean Corpuscular Hemoglobin Concent 33 g/dL (31-37) Red Cell Distribution Width 14.7 % (11.5-14.5) Platelet Count 158 x10^3/uL (140-400) Neutrophils (%) (Auto) 89 % (31-73) Lymphocytes (%) (Auto) 9 % (24-48) Monocytes (%) (Auto) 1 % (0-9) Eosinophils (%) (Auto) 0 % (0-3) Basophils (%) (Auto) 0 % (0-3) Neutrophils # (Auto) 6.1 x10^3uL (1.8-7.7) Lymphocytes # (Auto) 0.6 x10^3/uL (1.0-4.8) Monocytes # (Auto) 0.1 x10^3/uL (0.0-1.1) Eosinophils # (Auto) 0.0 x10^3/uL (0.0-0.7) Basophils # (Auto) 0.0 x10^3/uL (0.0-0.2) Glucose (Fingerstick) 128 mg/dL (70-99) 133 mg/dL (70-99) Review of Systems Review of Systems Denies chest pain Denies N/V/D Assessment and Plan Assessmemt and Plan Assessmemt and Plan Assessment: 1. Acute on chronic respiratory failure secondary to underlying pulmonary fibrosis, interstitial lung disease and chronic bronchiectasis. 2. Concurrent superimposed pneumonia and acute exacerbation of COPD leading to increasing shortness of breath. 3. Subjective fever at home - afebrile currently 4. Hypertension - controlled 5. Hyperlipidemia. 6. DM Plan: Appreciate pulm input - increase cough suppressant frequency Continue breathing tx Morphine prn Continue abx Check labs in am PT/OT Palliative care consulted Disp: pt is scheduled to see specialists at when she is d/c Problems: Comment Review of Relevant I have reviewed the following items jared (where applicable) has been applied. Labs Laboratory Tests Test 01/19/17 16:01 01/19/17 20:07 01/20/17 05:00 01/20/17 07:52 Glucose (Fingerstick) 85 mg/dL (70-99) 132 mg/dL (70-99) 76 mg/dL (70-99) White Blood Count 8.0 x10^3/uL (4.0-11.0) Red Blood Count 3.68 x10^6/uL (3.50-5.40) Hemoglobin 11.9 g/dL (12.0-15.5) Hematocrit 35.0 % (36.0-47.0) Mean Corpuscular Volume 95 fL (79-100) Mean Corpuscular Hemoglobin 32 pg (25-35) Mean Corpuscular Hemoglobin Concent 34 g/dL (31-37) Red Cell Distribution Width 14.6 % (11.5-14.5) Platelet Count 139 x10^3/uL (140-400) Neutrophils (%) (Auto) 68 % (31-73) Lymphocytes (%) (Auto) 18 % (24-48) Monocytes (%) (Auto) 9 % (0-9) Eosinophils (%) (Auto) 5 % (0-3) Basophils (%) (Auto) 0 % (0-3) Neutrophils # (Auto) 5.5 x10^3uL (1.8-7.7) Lymphocytes # (Auto) 1.4 x10^3/uL (1.0-4.8) Monocytes # (Auto) 0.7 x10^3/uL (0.0-1.1) Eosinophils # (Auto) 0.4 x10^3/uL (0.0-0.7) Basophils # (Auto) 0.0 x10^3/uL (0.0-0.2) Sodium Level 147 mmol/L (136-145) Potassium Level 4.7 mmol/L (3.5-5.1) Chloride Level 111 mmol/L (98-107) Carbon Dioxide Level 31 mmol/L (21-32) Anion Gap 5 (6-14) Blood Urea Nitrogen 24 mg/dL (7-20) Creatinine 1.2 mg/dL (0.6-1.0) Estimated GFR (Cockcroft-Gault) 44.9 Glucose Level 82 mg/dL (70-99) Calcium Level 8.9 mg/dL (8.5-10.1) Test 01/20/17 10:18 01/20/17 16:54 01/20/17 20:09 01/20/17 20:52 Glucose (Fingerstick) 59 mg/dL (70-99) 134 mg/dL (70-99) 146 mg/dL (70-99) Vancomycin Level Trough 18.5 mcg/mL (10.0-20.0) Vancomycin Last Dose Date 01/19/17 Vancomycin Last Dose Time 2100 Test 01/21/17 03:30 01/21/17 05:00 01/21/17 07:18 01/21/17 10:51 Sodium Level 145 mmol/L (136-145) Potassium Level 5.3 mmol/L (3.5-5.1) Chloride Level 106 mmol/L (98-107) Carbon Dioxide Level 32 mmol/L (21-32) Anion Gap 7 (6-14) Blood Urea Nitrogen 24 mg/dL (7-20) Creatinine 1.2 mg/dL (0.6-1.0) Estimated GFR (Cockcroft-Gault) 44.9 Glucose Level 135 mg/dL (70-99) Calcium Level 9.0 mg/dL (8.5-10.1) White Blood Count 6.8 x10^3/uL (4.0-11.0) Red Blood Count 3.59 x10^6/uL (3.50-5.40) Hemoglobin 11.3 g/dL (12.0-15.5) Hematocrit 34.4 % (36.0-47.0) Mean Corpuscular Volume 96 fL (79-100) Mean Corpuscular Hemoglobin 32 pg (25-35) Mean Corpuscular Hemoglobin Concent 33 g/dL (31-37) Red Cell Distribution Width 14.7 % (11.5-14.5) Platelet Count 158 x10^3/uL (140-400) Neutrophils (%) (Auto) 89 % (31-73) Lymphocytes (%) (Auto) 9 % (24-48) Monocytes (%) (Auto) 1 % (0-9) Eosinophils (%) (Auto) 0 % (0-3) Basophils (%) (Auto) 0 % (0-3) Neutrophils # (Auto) 6.1 x10^3uL (1.8-7.7) Lymphocytes # (Auto) 0.6 x10^3/uL (1.0-4.8) Monocytes # (Auto) 0.1 x10^3/uL (0.0-1.1) Eosinophils # (Auto) 0.0 x10^3/uL (0.0-0.7) Basophils # (Auto) 0.0 x10^3/uL (0.0-0.2) Glucose (Fingerstick) 128 mg/dL (70-99) 133 mg/dL (70-99) Laboratory Tests Test 01/20/17 16:54 01/20/17 20:09 01/20/17 20:52 01/21/17 03:30 Glucose (Fingerstick) 134 mg/dL (70-99) 146 mg/dL (70-99) Vancomycin Level Trough 18.5 mcg/mL (10.0-20.0) Vancomycin Last Dose Date 01/19/17 Vancomycin Last Dose Time 2100 Sodium Level 145 mmol/L (136-145) Potassium Level 5.3 mmol/L (3.5-5.1) Chloride Level 106 mmol/L (98-107) Carbon Dioxide Level 32 mmol/L (21-32) Anion Gap 7 (6-14) Blood Urea Nitrogen 24 mg/dL (7-20) Creatinine 1.2 mg/dL (0.6-1.0) Estimated GFR (Cockcroft-Gault) 44.9 Glucose Level 135 mg/dL (70-99) Calcium Level 9.0 mg/dL (8.5-10.1) Test 01/21/17 05:00 01/21/17 07:18 01/21/17 10:51 White Blood Count 6.8 x10^3/uL (4.0-11.0) Red Blood Count 3.59 x10^6/uL (3.50-5.40) Hemoglobin 11.3 g/dL (12.0-15.5) Hematocrit 34.4 % (36.0-47.0) Mean Corpuscular Volume 96 fL (79-100) Mean Corpuscular Hemoglobin 32 pg (25-35) Mean Corpuscular Hemoglobin Concent 33 g/dL (31-37) Red Cell Distribution Width 14.7 % (11.5-14.5) Platelet Count 158 x10^3/uL (140-400) Neutrophils (%) (Auto) 89 % (31-73) Lymphocytes (%) (Auto) 9 % (24-48) Monocytes (%) (Auto) 1 % (0-9) Eosinophils (%) (Auto) 0 % (0-3) Basophils (%) (Auto) 0 % (0-3) Neutrophils # (Auto) 6.1 x10^3uL (1.8-7.7) Lymphocytes # (Auto) 0.6 x10^3/uL (1.0-4.8) Monocytes # (Auto) 0.1 x10^3/uL (0.0-1.1) Eosinophils # (Auto) 0.0 x10^3/uL (0.0-0.7) Basophils # (Auto) 0.0 x10^3/uL (0.0-0.2) Glucose (Fingerstick) 128 mg/dL (70-99) 133 mg/dL (70-99) Medications Current Medications Sodium Chloride 1,000 ml @ 60 mls/hr [id number] IV Last administered on 06:26; Start 01/16/17 at 23:00 Ondansetron HCl (Zofran) 4 mg PRN Q6HRS PRN IV NAUSEA/VOMITING; Start 01/16/17 at 23:00; Stop 01/17/17 at 13:31; Status DC Oxycodone HCl (Roxicodone) 10 mg PRN Q8HRS PRN PO SEVERE PAIN; Start 01/16/17 at 23:00; Stop 01/19/17 at 09:42; Status DC Acetaminophen (Tylenol) 650 mg PRN Q6HRS PRN PO Headaches, Temp > 101.5F; Start 01/16/17 at 22:45; Stop 01/17/17 at 10:06; Status DC Docusate Sodium (Colace) 100 mg BID PO ; Start 01/17/17 at 09:00; Stop 01/17/17 at 13:31; Status DC Enoxaparin Sodium (Lovenox 40mg Syringe) 40 mg Q24H SQ Last administered on 00:33; Start 01/16/17 at 23:00; Stop 01/17/17 at 10:01; Status DC Hydrocortisone Sodium Succinate (Solu-CORTEF) 60 mg Q12HR IV Last administered on 01/17/17 09:42; Start 01/17/17 at 09:00; Stop 01/17/17 at 13:29; Status DC Famotidine (Pepcid) 20 mg QHS PO ; Start 01/17/17 at 21:00; Stop 01/17/17 at 21: 00; Status DC Albuterol/ Ipratropium (Duoneb) 3 ml RTQID NEB Last administered on 01/21/17 12:03; Start 01/17/17 at 08:00 Alprazolam (Xanax) 1 mg PRN Q8HRS PRN PO ANXIETY / AGITATION Last administered on 01/20/17 11:51; Start 01/17/17 at 00:15 Albuterol/ Ipratropium (Duoneb) 3 ml 1X ONCE NEB Last administered on 02:49; Start 01/17/17 at 02:45; Stop 01/17/17 at 02:46; Status DC Guaifenesin (Robitussin Dm) 10 ml PRN Q6HRS PRN PO COUGH Last administered on 12:04; Start 01/17/17 at 02:45; Stop 01/21/17 at 07:40; Status DC Enoxaparin Sodium (Lovenox 40mg Syringe) 40 mg BID SQ Last administered on 01/21 08:58; Start 01/17/17 at 21:00 Acetaminophen (Tylenol) 325 mg PRN Q6HRS PRN PO MILD PAIN / TEMP; Start at 10:15 Acetaminophen/ Hydrocodone Bitart (Lortab 5/325) 1 tab PRN Q6HRS PRN PO MODERATE PAIN Last administered on 01/19/17 15:16; Start 01/17/17 at 10:15 Hydralazine HCl (Apresoline) 10 mg PRN Q4HRS PRN IVP ELEVATED BP, SEE COMMENTS ; Start 01/17/17 at 10:15 Ondansetron HCl (Zofran) 4 mg PRN Q8HRS PRN IV NAUSEA/VOMITING; Start 01/17/17 at 10:15 Albuterol Sulfate (Ventolin Neb Soln) 2.5 mg PRN Q4HRS PRN NEB SHORTNESS OF BREATH Last administered on 01/21/17 04:57; Start 01/17/17 at 10:15 Methylprednisolone Sodium Succinate (SOLU-Medrol 40MG VIAL) 40 mg Q8HRS IV Last administered on 01/17/17 21:04; Start 01/17/17 at 14:00; Stop 01/17/17 at 21:53; Status DC Piperacillin Sod/ Tazobactam Sod 3.375 gm/Sodium Chloride 50 ml @ 100 mls/hr Q6HRS IV Last administered on 01/21/17 12:31; Start 01/17/17 at 18:00 Levofloxacin/ Dextrose 150 ml @ 100 mls/hr Q24H IV Last administered on 13:48; Start 01/17/17 at 13:30 Vancomycin HCl (Vanco Per Pharmacy) 1 each PRN DAILY PRN MC SEE COMMENTS Last administered on 01/20/17 22:39; Start 01/17/17 at 13:15 Guaifenesin/ Codeine Phosphate (Robitussin Ac) 5 ml PRN Q6HRS PRN PO COUGH Last administered on 01/21/17 03:42; Start 01/17/17 at 13:15; Stop 01/21/17 at 07:40; Status DC Vancomycin HCl 2 gm/Sodium Chloride 500 ml @ 250 mls/hr 1X ONCE IV Last administered on 01/17/17 15:21; Start 01/17/17 at 13:30; Stop 01/17/17 at 15:29 ; Status DC Docusate Sodium (Colace) 100 mg BID PO Last administered on 01/21/17 08:59; Start 01/17/17 at 21:00 Furosemide (Lasix) 20 mg DAILY PO Last administered on 01/21/17 08:59; Start 01/17/17 at 14:00 Lisinopril (Prinivil) 2.5 mg DAILY PO Last administered on 01/21/17 08:59; Start 01/17/17 at 14:00 Metoprolol Succinate (Toprol Xl) 25 mg DAILY PO Last administered on 01/21/17 08:59; Start 01/17/17 at 14:00 Montelukast Sodium (Singulair) 10 mg HS PO Last administered on 01/20/17 20:51 ; Start 01/17/17 at 21:00 Oxybutynin Chloride (Ditropan) 5 mg BID PO Last administered on 01/21/17 08:59 ; Start 01/17/17 at 14:00 Pantoprazole Sodium (Protonix) 40 mg BIDAC PO Last administered on 01/21/17 09 :00; Start 01/17/17 at 16:30 Senna/Docusate Sodium (Senna Plus) 1 tab QHS PO Last administered on 01/20/17 20:51; Start 01/17/17 at 21:00 Alprazolam (Xanax) 3 mg QHS PO Last administered on 01/20/17 20:52; Start at 21:00 Lactobacillus Acidophilus (Bacid, Jodi-Bid) 2 tab QHS PO Last administered on 20:51; Start 01/17/17 at 21:00 Duloxetine HCl (Cymbalta) 60 mg [id number] PO Last administered on 01/21/17 06:03; Start 01/17/17 at 18:00 Escitalopram Oxalate (Lexapro) 20 mg DAILY PO Last administered on 01/21/17 09 :00; Start 01/18/17 at 09:00 Famotidine (Pepcid) 40 mg QHS PO Last administered on 01/20/17 20:51; Start at 21:00 Lamotrigine (LaMICtal) 200 mg BID PO Last administered on 01/21/17 08:59; Start 01/17/17 at 21:00 Cetirizine HCl (ZyrTEC) 10 mg DAILY PO Last administered on 01/21/17 09:00; Start 01/18/17 at 09:00 Meloxicam (Mobic) 15 mg DAILY PO Last administered on 01/21/17 08:58; Start at 14:00 Fish Oil (Fish Oil) 1,000 mg BID PO Last administered on 01/21/17 09:00; Start 01/17/17 at 21:00 Oxycodone HCl (Roxicodone) 20 mg PRN TID PRN PO PAIN Last administered on 03:43; Start 01/17/17 at 13:45 Oxycodone HCl (Roxicodone) 40 mg PRN TID PRN PO PAIN; Start 01/17/17 at 13:45 Sertraline HCl (Zoloft) 200 mg DAILY PO ; Start 01/18/17 at 09:00; Status Cancel Vancomycin HCl 1.5 gm/Sodium Chloride 500 ml @ 250 mls/hr Q12H IV Last administered on 01/18/17 16:21; Start 01/18/17 at 04:00; Stop 01/19/17 at 04:58 ; Status DC Vancomycin HCl 1 each 1X ONCE MC Last administered on 01/19/17 03:30; Start 01/19/17 at 03:30; Stop 01/19/17 at 03:31; Status DC Vancomycin HCl 1.5 gm/Sodium Chloride 500 ml @ 250 mls/hr Q24H IV Last administered on 01/20/17 21:42; Start 01/19/17 at 21:00 Vancomycin HCl 1 each 1X ONCE MC Last administered on 01/20/17 20:30; Start 01/20/17 at 20:30; Stop 01/20/17 at 20:31; Status DC Methylprednisolone Sodium Succinate (SOLU-Medrol 125MG VIAL) 60 mg Q12HR IV Last administered on 01/20/17 20:50; Start 01/20/17 at 11:00; Stop 01/21/17 at 07:52; Status DC Benzonatate (Tessalon Perle) 200 mg TID PO Last administered on 01/21/17 13:30 ; Start 01/20/17 at 12:00 Lorazepam (Ativan) 0.5 mg BID PO Last administered on 01/21/17 09:05; Start at 12:30 Morphine Sulfate 2 mg PRN Q1HR PRN IV PAIN; Start 01/20/17 at 13:15 Morphine Sulfate 10 mg STK-MED ONCE .ROUTE ; Start 01/20/17 at 13:05; Stop 01/20 at 13:06; Status DC Morphine Sulfate 1 mg 1X ONCE IV Last administered on 01/20/17 13:20; Start 01/20/17 at 13:30; Stop 01/20/17 at 13:31; Status DC Promethazine HCl/ Codeine (Phenergan With Codeine) 10 ml PRN Q4HRS PRN PO COUGH Last administered on 01/21/17 13:30; Start 01/21/17 at 07:45 Methylprednisolone Sodium Succinate (SOLU-Medrol 125MG VIAL) 125 mg Q12HR IV Last administered on 01/21/17t 09:05; Start 01/21/17 at 09:00 Active Scripts Active Reported Oxycodone Hcl 10 Mg Tablet 20 Mg PO TID PRN Symbicort 160-4.5 Mcg Inhaler (Budesonide/Formoterol Fumarate) 10.2 Gm Hfa.aer.ad 2 Puff IH BID Alprazolam 2 Mg Tablet 1.5 Tab PO QHS Senna Plus Tablet (Sennosides/Docusate Sodium) 1 Each Tablet 1 Each PO QHS Prednisone 20 Mg Tablet 1 Tab PO DAILY Lisinopril 2.5 Mg Tablet 1 Tab PO DAILY Lamotrigine 200 Mg Tablet 1 Tab PO BID Furosemide 20 Mg Tablet 1 Tab PO DAILY Famotidine 40 Mg Tablet 40 Mg PO HS Lexapro (Escitalopram Oxalate) 20 Mg Tablet 25 Mg PO DAILY Phentermine Hcl 37.5 Mg Tablet 1 Tab PO PRN BID PRN Actonel (Risedronate Sodium) 150 Mg Tablet 1 Tab PO QMONTH Miralax (Polyethylene Glycol 3350) 17 Gm Powd.pack 1 Packet PO DAILY PRN Olopatadine HCl 30.5 Gm [place].pump 30.5 Gm NS DAILY Flonase Allergy Relief (Fluticasone Propionate) 9.9 Ml [place].susp 1 Sprays NS BID FENTANYL 100mcg/hr (Fentanyl) 1 Each Patch.td72 1 Patch TD Q72H Proair Hfa Inhaler (Albuterol Sulfate) 8.5 Gm Hfa.aer.ad 2 Puff INH QID PRN [place]-3 ([place]-3 Fatty Acids) 1,000 Mg Capsule 1,000 Mg PO BID Multi-Vitamin Daily (Multivitamin) 1 Each Tablet 1 Each PO Glucosamine 1,500 Complex Cp (Gluc Becerril/Chondro Becerril A/Vit C/Mn) 1 Each Capsule 1 Each PO BID Calcium Carbonate 600 Mg Tablet 600 Mg PO BID Zoloft (Sertraline Hcl) 100 Mg Tablet 2 Tab PO DAILY Protonix (Pantoprazole Sodium) 40 Mg Tablet.dr 1 Tab PO BID Oxycodone Hcl 20 Mg Tablet 40 Mg PO TID PRN Oxybutynin Chloride 5 Mg Tablet 1 Tab PO BID Montelukast Sodium Tablet (Montelukast Sodium) 10 Mg Tablet 10 Mg PO HS Metoprolol Succinate ( Xl ) (Metoprolol Succinate) 25 Mg Tab.er.24h 1 Tab PO DAILY Mobic (Meloxicam) 15 Mg Tablet 1 Tab PO DAILY Loratadine 10 Mg Tablet 1 Tab PO DAILY Cymbalta (Duloxetine Hcl) 60 Mg Capsule.dr 1 Cap PO [id number] Colace (Docusate Sodium) 100 Mg Capsule 1 Cap PO BID Alprazolam 1 Mg Tablet 1 Tab PO TID Align (Bifidobacterium Infantis) 4 Mg Capsule 4 Mg PO HS Vitals/I & O Vital Sign - Last 24 Hours 01/20/17 01/20/17 01/20/17 01/20/17 14:59 15:23 17:53 19:33 Temp 99.1 99.1 Pulse 81 Resp 22 B/P (MAP) 126/57 (80) Pulse Ox 97 O2 Delivery Nasal Cannula Nasal Cannula Nasal Cannula Nasal Cannula O2 Flow Rate 5.0 5.0 4.0 4.0 01/20/17 01/20/17 01/20/17 01/20/17 19:36 19:36 20:00 23:21 Temp 98.1 98.9 98.1 98.9 Pulse 75 64 Resp 22 20 B/P (MAP) 121/72 (88) 111/59 (76) Pulse Ox 98 94 O2 Delivery Nasal Cannula Nasal Cannula Nasal Cannula Nasal Cannula O2 Flow Rate 5.0 4.0 4.0 5.0 01/21/17 01/21/17 01/21/17 01/21/17 03:30 03:43 04:58 07:16 Temp 97.1 97.6 97.1 97.6 Pulse 70 70 Resp 22 22 23 B/P (MAP) 126/66 (86) 140/76 (97) Pulse Ox 96 95 O2 Delivery Nasal Cannula Nasal Cannula Nasal Cannula Nasal Cannula O2 Flow Rate 5.0 4.0 4.0 5.0 01/21/17 01/21/17 01/21/17 01/21/17 07:46 08:00 08:59 08:59 Pulse 70 70 B/P (MAP) 140/76 140/76 Pulse Ox 100 O2 Delivery Nasal Cannula Nasal Cannula O2 Flow Rate 4.0 4.0 01/21/17 01/21/17 10:47 12:05 Temp 97.9 97.9 Pulse 91 Resp 24 B/P (MAP) 131/59 (83) Pulse Ox 94 O2 Delivery Nasal Cannula Nasal Cannula O2 Flow Rate 5.0 4.0 Intake and Output 01/20/17 01/20/17 01/21/17 15:00 23:00 07:00 Intake Total 1320 ml 60 ml Output Total 1700 ml 775 ml Balance -380 ml -715 ml JASSI TOM III DO January 21, 2017 13:43
[2017-01-21 15:00] VITALS: BP 124/59
[2017-01-21] MEDS: HYDROcodone/APAP 5/325MG 1 TAB TABLET PO PRN (17:52)
[2017-01-21 19:00] VITALS: BP 173/91
[2017-01-21] MEDS ORDERED: ALBUTEROL SULFATE 2.5 MG/3 ML NEBU. NEB PRN (20:30)
[2017-01-21] MEDS ORDERED: NALOXONE 0.4 MG/ML VIAL. ONE (20:36)
[2017-01-21] MEDS: SENNOSIDES/DOCUSATE 8.6/50MG TABLET. PO SCH (21:00)
[2017-01-21] MEDS: LACTOBACILLUS ACIDOPH & BULGAR 1 TABLET. PO SCH (21:00)
[2017-01-21] MEDS: MONTELUKAST SODIUM 10 MG TABLET. PO SCH (21:00)
[2017-01-21] MEDS: LORazepam 1 MG TABLET PO SCH (21:00)
[2017-01-21] MEDS: FAMOTIDINE 20 MG TABLET. PO SCH (21:00)
[2017-01-21] MEDS ORDERED: FUROSEMIDE 40 MG/4 ML VIAL. IVP ONE (21:30)
[2017-01-21] MEDS: MORPHINE SULFATE/PF 30 ML IV PRN (21:42)
[2017-01-21] MEDS: VANCOMYCIN 1.5 GM in IV NORMAL SALINE 500ML BAG 500 ML IV SCH (22:16)
[2017-01-21 22:50] VITALS: BP 80/55
[2017-01-22] MEDS: PIPERACILLIN/TAZOBACTAM 3.375 GM in IV NORMAL SALINE 50ML 50 ML IV SCH ×4 (01:00→18:40)
[2017-01-22 02:55] VITALS: BP 98/53
[2017-01-22 04:24] LABS: BASO % 0 % (0-3); EOS % 0 % (0-3); HEMATOCRIT 34.3 % (36.0-47.0); HEMOGLOBIN 10.9 g/dL (12.0-15.5); LYMPH # 0.6 x10^3/uL (1.0-4.8); LYMPH % 6 % (24-48); MEAN CORPUSCULAR HEMOGLOBIN 31 pg (25-35); MEAN CORPUSCULAR HGB CONC 32 g/dL (31-37); MEAN CORPUSCULAR VOLUME 96 fL (79-100); MONO % 2 % (0-9); NEUT % 92 % (31-73); PLATELET COUNT 145 x10^3/uL (140-400); RED BLOOD COUNT 3.58 x10^6/uL (3.50-5.40); RED CELL DISTRIBUTION WIDTH 14.4 % (11.5-14.5); WHITE BLOOD COUNT 11.3 x10^3/uL (4.0-11.0)
[2017-01-22 04:46] LABS: CALCIUM 8.8 mg/dL (8.5-10.1); CREATININE 1.3 mg/dL (0.6-1.0); POTASSIUM 4.4 mmol/L (3.5-5.1)
[2017-01-22] MEDS: PANTOPRAZOLE 40 MG TABLET.DR. PO SCH ×2 (06:05→17:02)
[2017-01-22] MEDS: DULoxetine HCL 30 MG CAPSULE.DR PO SCH ×2 (06:06→09:00)
[2017-01-22] MEDS: MORPHINE SULFATE/PF 30 ML IV PRN ×2 (06:33→16:48)
[2017-01-22] MEDS: IPRATRPIUM/ALBUTEROL 0.5/2.5MG 3 ML NEBU. NEB SCH ×4 (07:15→19:48)
[2017-01-22 07:16] VITALS: BP 98/57
[2017-01-22] MEDS: BENZONATATE 100 MG CAPSULE. PO SCH ×3 (08:58→21:11)
[2017-01-22] MEDS: methylPREDNISolone SOD SUCC PF 125 MG/2 ML VIAL. IV SCH ×2 (08:58→21:10)
[2017-01-22] MEDS: ESCITALOPRAM 10 MG TABLET. PO SCH (09:00)
[2017-01-22] MEDS: METOPROLOL SUCC 24HR ER 25 MG TAB.ER.24H. PO SCH (09:00)
[2017-01-22] MEDS: FUROSEMIDE 20 MG TABLET PO SCH (09:00)
[2017-01-22] MEDS: LISINOPRIL 2.5 MG TABLET PO SCH (09:00)
[2017-01-22] MEDS: OMEGA-3 FATTY ACIDS/FISH OIL 1,000 MG CAPSULE. PO SCH ×2 (09:00→21:10)
[2017-01-22] MEDS: lamoTRIgine 100 MG TABLET. PO SCH ×2 (09:01→21:11)
[2017-01-22] MEDS: CETIRIZINE HCL 10 MG TABLET. PO SCH (09:01)
[2017-01-22] MEDS: MELOXICAM 7.5 MG TABLET PO SCH (09:02)
[2017-01-22] MEDS: OXYBUTYNIN CHLORIDE 5 MG TABLET PO SCH ×2 (09:07→21:10)
[2017-01-22] MEDS: DOCUSATE SODIUM 100 MG CAPSULE. PO SCH ×2 (09:07→21:10)
[2017-01-22] MEDS: LORazepam 1 MG TABLET PO SCH ×3 (09:08→21:10)
--- NOTE | 2017-01-22 09:34 | RAD ---
AP chest. History: Follow-up, infiltrates or fibrosis AP view was taken of the chest. There is chronic elevation of the right diaphragm. There is chronic interstitial lung disease. There is prominence of pulmonary artery in the right lung. Heart is within normal limits in size. No new infiltrates are noted. There is arthritis in both shoulders. The patient's had previous cervical fusion. Impression: 1. No change from the recent study.
[2017-01-22 10:10] LABS: PLT ESTIMATE ADEQUATE (ADEQUATE)
[2017-01-22] MEDS: PROMETH/CODEINE 6.25/10MG 5 ML SYRUP. PO PRN ×2 (10:10→17:50)
[2017-01-22 10:19] VITALS: BP 112/61
--- NOTE | 2017-01-22 10:46 | PDOC ---
PROGRESS NOTES Chief Complaint Chief Complaint 1. Acute on chronic respiratory failure secondary to underlying pulmonary fibrosis, interstitial lung disease and chronic bronchiectasis. 2. Concurrent superimposed pneumonia and acute exacerbation of COPD leading toincreasing shortness of breath. 3. Subjective fever at home. 4. Hypertension. 5. Hyperlipidemia. 6. 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 Eats in between BIPAP DNR/DNI Rpt CXR lillian AM interval ff up (last was 01.17) Vitals Vitals Vital Signs Date Time Temp Pulse Resp B/P (MAP) Pulse Ox O2 Delivery O2 Flow Rate FiO2 01/22/17 10:19 98.2 80 23 112/61 (78) 100 BiPAP/CPAP 98.2 01/22/17 09:13 4.0 Physical Exam General: Alert, Oriented X3, Cooperative, mild distress Heart: Regular rate, Normal S1, Normal S2, Other (2/6 systolic murmur ) Lungs: Crackles (bilateral - improved slightly) Abdomen: Soft, No tenderness Extremities: No edema, Normal pulses Skin: No breakdown, No significant lesion Labs LABS Laboratory Tests Test 01/21/17 10:51 01/21/17 17:05 01/21/17 20:23 01/22/17 03:20 Glucose (Fingerstick) 133 mg/dL (70-99) 120 mg/dL (70-99) 179 mg/dL (70-99) White Blood Count 11.3 x10^3/uL (4.0-11.0) Red Blood Count 3.58 x10^6/uL (3.50-5.40) Hemoglobin 10.9 g/dL (12.0-15.5) Hematocrit 34.3 % (36.0-47.0) Mean Corpuscular Volume 96 fL (79-100) Mean Corpuscular Hemoglobin 31 pg (25-35) Mean Corpuscular Hemoglobin Concent 32 g/dL (31-37) Red Cell Distribution Width 14.4 % (11.5-14.5) Platelet Count 145 x10^3/uL (140-400) Neutrophils (%) (Auto) 92 % (31-73) Lymphocytes (%) (Auto) 6 % (24-48) Monocytes (%) (Auto) 2 % (0-9) Eosinophils (%) (Auto) 0 % (0-3) Basophils (%) (Auto) 0 % (0-3) Neutrophils # (Auto) 10.5 x10^3uL (1.8-7.7) Lymphocytes # (Auto) 0.6 x10^3/uL (1.0-4.8) Monocytes # (Auto) 0.2 x10^3/uL (0.0-1.1) Eosinophils # (Auto) 0.0 x10^3/uL (0.0-0.7) Basophils # (Auto) 0.0 x10^3/uL (0.0-0.2) Segmented Neutrophils % 89 % (35-66) Band Neutrophils % 7 % (0-9) Lymphocytes % 3 % (24-48) Monocytes % 1 % (0-10) Platelet Estimate Adequate (ADEQUATE) Sodium Level 146 mmol/L (136-145) Potassium Level 4.4 mmol/L (3.5-5.1) Chloride Level 106 mmol/L (98-107) Carbon Dioxide Level 35 mmol/L (21-32) Anion Gap 5 (6-14) Blood Urea Nitrogen 34 mg/dL (7-20) Creatinine 1.3 mg/dL (0.6-1.0) Estimated GFR (Cockcroft-Gault) 41.0 Glucose Level 137 mg/dL (70-99) Calcium Level 8.8 mg/dL (8.5-10.1) Test 01/22/17 07:19 Glucose (Fingerstick) 127 mg/dL (70-99) Review of Systems Review of Systems on bipap, limited rOS Comment Review of Relevant I have reviewed the following items jared (where applicable) has been applied. Labs Laboratory Tests Test 01/20/17 16:54 01/20/17 20:09 01/20/17 20:52 01/21/17 03:30 Glucose (Fingerstick) 134 mg/dL (70-99) 146 mg/dL (70-99) Vancomycin Level Trough 18.5 mcg/mL (10.0-20.0) Vancomycin Last Dose Date 01/19/17 Vancomycin Last Dose Time 2100 Sodium Level 145 mmol/L (136-145) Potassium Level 5.3 mmol/L (3.5-5.1) Chloride Level 106 mmol/L (98-107) Carbon Dioxide Level 32 mmol/L (21-32) Anion Gap 7 (6-14) Blood Urea Nitrogen 24 mg/dL (7-20) Creatinine 1.2 mg/dL (0.6-1.0) Estimated GFR (Cockcroft-Gault) 44.9 Glucose Level 135 mg/dL (70-99) Calcium Level 9.0 mg/dL (8.5-10.1) Test 01/21/17 05:00 01/21/17 07:18 01/21/17 10:51 01/21/17 17:05 White Blood Count 6.8 x10^3/uL (4.0-11.0) Red Blood Count 3.59 x10^6/uL (3.50-5.40) Hemoglobin 11.3 g/dL (12.0-15.5) Hematocrit 34.4 % (36.0-47.0) Mean Corpuscular Volume 96 fL (79-100) Mean Corpuscular Hemoglobin 32 pg (25-35) Mean Corpuscular Hemoglobin Concent 33 g/dL (31-37) Red Cell Distribution Width 14.7 % (11.5-14.5) Platelet Count 158 x10^3/uL (140-400) Neutrophils (%) (Auto) 89 % (31-73) Lymphocytes (%) (Auto) 9 % (24-48) Monocytes (%) (Auto) 1 % (0-9) Eosinophils (%) (Auto) 0 % (0-3) Basophils (%) (Auto) 0 % (0-3) Neutrophils # (Auto) 6.1 x10^3uL (1.8-7.7) Lymphocytes # (Auto) 0.6 x10^3/uL (1.0-4.8) Monocytes # (Auto) 0.1 x10^3/uL (0.0-1.1) Eosinophils # (Auto) 0.0 x10^3/uL (0.0-0.7) Basophils # (Auto) 0.0 x10^3/uL (0.0-0.2) Glucose (Fingerstick) 128 mg/dL (70-99) 133 mg/dL (70-99) 120 mg/dL (70-99) Test 01/21/17 20:23 01/22/17 03:20 01/22/17 07:19 Glucose (Fingerstick) 179 mg/dL (70-99) 127 mg/dL (70-99) White Blood Count 11.3 x10^3/uL (4.0-11.0) Red Blood Count 3.58 x10^6/uL (3.50-5.40) Hemoglobin 10.9 g/dL (12.0-15.5) Hematocrit 34.3 % (36.0-47.0) Mean Corpuscular Volume 96 fL (79-100) Mean Corpuscular Hemoglobin 31 pg (25-35) Mean Corpuscular Hemoglobin Concent 32 g/dL (31-37) Red Cell Distribution Width 14.4 % (11.5-14.5) Platelet Count 145 x10^3/uL (140-400) Neutrophils (%) (Auto) 92 % (31-73) Lymphocytes (%) (Auto) 6 % (24-48) Monocytes (%) (Auto) 2 % (0-9) Eosinophils (%) (Auto) 0 % (0-3) Basophils (%) (Auto) 0 % (0-3) Neutrophils # (Auto) 10.5 x10^3uL (1.8-7.7) Lymphocytes # (Auto) 0.6 x10^3/uL (1.0-4.8) Monocytes # (Auto) 0.2 x10^3/uL (0.0-1.1) Eosinophils # (Auto) 0.0 x10^3/uL (0.0-0.7) Basophils # (Auto) 0.0 x10^3/uL (0.0-0.2) Segmented Neutrophils % 89 % (35-66) Band Neutrophils % 7 % (0-9) Lymphocytes % 3 % (24-48) Monocytes % 1 % (0-10) Platelet Estimate Adequate (ADEQUATE) Sodium Level 146 mmol/L (136-145) Potassium Level 4.4 mmol/L (3.5-5.1) Chloride Level 106 mmol/L (98-107) Carbon Dioxide Level 35 mmol/L (21-32) Anion Gap 5 (6-14) Blood Urea Nitrogen 34 mg/dL (7-20) Creatinine 1.3 mg/dL (0.6-1.0) Estimated GFR (Cockcroft-Gault) 41.0 Glucose Level 137 mg/dL (70-99) Calcium Level 8.8 mg/dL (8.5-10.1) Laboratory Tests Test 01/21/17 10:51 01/21/17 17:05 01/21/17 20:23 01/22/17 03:20 Glucose (Fingerstick) 133 mg/dL (70-99) 120 mg/dL (70-99) 179 mg/dL (70-99) White Blood Count 11.3 x10^3/uL (4.0-11.0) Red Blood Count 3.58 x10^6/uL (3.50-5.40) Hemoglobin 10.9 g/dL (12.0-15.5) Hematocrit 34.3 % (36.0-47.0) Mean Corpuscular Volume 96 fL (79-100) Mean Corpuscular Hemoglobin 31 pg (25-35) Mean Corpuscular Hemoglobin Concent 32 g/dL (31-37) Red Cell Distribution Width 14.4 % (11.5-14.5) Platelet Count 145 x10^3/uL (140-400) Neutrophils (%) (Auto) 92 % (31-73) Lymphocytes (%) (Auto) 6 % (24-48) Monocytes (%) (Auto) 2 % (0-9) Eosinophils (%) (Auto) 0 % (0-3) Basophils (%) (Auto) 0 % (0-3) Neutrophils # (Auto) 10.5 x10^3uL (1.8-7.7) Lymphocytes # (Auto) 0.6 x10^3/uL (1.0-4.8) Monocytes # (Auto) 0.2 x10^3/uL (0.0-1.1) Eosinophils # (Auto) 0.0 x10^3/uL (0.0-0.7) Basophils # (Auto) 0.0 x10^3/uL (0.0-0.2) Segmented Neutrophils % 89 % (35-66) Band Neutrophils % 7 % (0-9) Lymphocytes % 3 % (24-48) Monocytes % 1 % (0-10) Platelet Estimate Adequate (ADEQUATE) Sodium Level 146 mmol/L (136-145) Potassium Level 4.4 mmol/L (3.5-5.1) Chloride Level 106 mmol/L (98-107) Carbon Dioxide Level 35 mmol/L (21-32) Anion Gap 5 (6-14) Blood Urea Nitrogen 34 mg/dL (7-20) Creatinine 1.3 mg/dL (0.6-1.0) Estimated GFR (Cockcroft-Gault) 41.0 Glucose Level 137 mg/dL (70-99) Calcium Level 8.8 mg/dL (8.5-10.1) Test 01/22/17 07:19 Glucose (Fingerstick) 127 mg/dL (70-99) Medications Current Medications Sodium Chloride 1,000 ml @ 60 mls/hr [id number] IV Last administered on 06:26; Start 01/16/17 at 23:00 Ondansetron HCl (Zofran) 4 mg PRN Q6HRS PRN IV NAUSEA/VOMITING; Start 01/16/17 at 23:00; Stop 01/17/17 at 13:31; Status DC Oxycodone HCl (Roxicodone) 10 mg PRN Q8HRS PRN PO SEVERE PAIN; Start 01/16/17 at 23:00; Stop 01/19/17 at 09:42; Status DC Acetaminophen (Tylenol) 650 mg PRN Q6HRS PRN PO Headaches, Temp > 101.5F; Start 01/16/17 at 22:45; Stop 01/17/17 at 10:06; Status DC Docusate Sodium (Colace) 100 mg BID PO ; Start 01/17/17 at 09:00; Stop 01/17/17 at 13:31; Status DC Enoxaparin Sodium (Lovenox 40mg Syringe) 40 mg Q24H SQ Last administered on 00:33; Start 01/16/17 at 23:00; Stop 01/17/17 at 10:01; Status DC Hydrocortisone Sodium Succinate (Solu-CORTEF) 60 mg Q12HR IV Last administered on 01/17/17 09:42; Start 01/17/17 at 09:00; Stop 01/17/17 at 13:29; Status DC Famotidine (Pepcid) 20 mg QHS PO ; Start 01/17/17 at 21:00; Stop 01/17/17 at 21: 00; Status DC Albuterol/ Ipratropium (Duoneb) 3 ml RTQID NEB Last administered on 01/22/17 07:15; Start 01/17/17 at 08:00 Alprazolam (Xanax) 1 mg PRN Q8HRS PRN PO ANXIETY / AGITATION Last administered on 01/20/17 11:51; Start 01/17/17 at 00:15; Stop 01/21/17 at 20:30; Status DC Albuterol/ Ipratropium (Duoneb) 3 ml 1X ONCE NEB Last administered on 02:49; Start 01/17/17 at 02:45; Stop 01/17/17 at 02:46; Status DC Guaifenesin (Robitussin Dm) 10 ml PRN Q6HRS PRN PO COUGH Last administered on 12:04; Start 01/17/17 at 02:45; Stop 01/21/17 at 07:40; Status DC Enoxaparin Sodium (Lovenox 40mg Syringe) 40 mg BID SQ Last administered on 01/21 22:05; Start 01/17/17 at 21:00 Acetaminophen (Tylenol) 325 mg PRN Q6HRS PRN PO MILD PAIN / TEMP; Start at 10:15 Acetaminophen/ Hydrocodone Bitart (Lortab 5/325) 1 tab PRN Q6HRS PRN PO MODERATE PAIN Last administered on 01/21/17 17:52; Start 01/17/17 at 10:15; Stop 01/21/17 at 20:30; Status DC Hydralazine HCl (Apresoline) 10 mg PRN Q4HRS PRN IVP ELEVATED BP, SEE COMMENTS ; Start 01/17/17 at 10:15 Ondansetron HCl (Zofran) 4 mg PRN Q8HRS PRN IV NAUSEA/VOMITING; Start 01/17/17 at 10:15 Albuterol Sulfate (Ventolin Neb Soln) 2.5 mg PRN Q4HRS PRN NEB SHORTNESS OF BREATH Last administered on 01/21/17 20:59; Start 01/17/17 at 10:15; Stop 01/22 at 10:17; Status DC Methylprednisolone Sodium Succinate (SOLU-Medrol 40MG VIAL) 40 mg Q8HRS IV Last administered on 01/17/17 21:04; Start 01/17/17 at 14:00; Stop 01/17/17 at 21:53; Status DC Piperacillin Sod/ Tazobactam Sod 3.375 gm/Sodium Chloride 50 ml @ 100 mls/hr Q6HRS IV Last administered on 01/22/17 05:58; Start 01/17/17 at 18:00 Levofloxacin/ Dextrose 150 ml @ 100 mls/hr Q24H IV Last administered on 15:59; Start 01/17/17 at 13:30 Vancomycin HCl (Vanco Per Pharmacy) 1 each PRN DAILY PRN MC SEE COMMENTS Last administered on 01/20/17 22:39; Start 01/17/17 at 13:15 Guaifenesin/ Codeine Phosphate (Robitussin Ac) 5 ml PRN Q6HRS PRN PO COUGH Last administered on 01/21/17 03:42; Start 01/17/17 at 13:15; Stop 01/21/17 at 07:40; Status DC Vancomycin HCl 2 gm/Sodium Chloride 500 ml @ 250 mls/hr 1X ONCE IV Last administered on 01/17/17 15:21; Start 01/17/17 at 13:30; Stop 01/17/17 at 15:29 ; Status DC Docusate Sodium (Colace) 100 mg BID PO Last administered on 01/22/17 09:07; Start 01/17/17 at 21:00 Furosemide (Lasix) 20 mg DAILY PO Last administered on 01/21/17 08:59; Start 01/17/17 at 14:00 Lisinopril (Prinivil) 2.5 mg DAILY PO Last administered on 01/21/17 08:59; Start 01/17/17 at 14:00 Metoprolol Succinate (Toprol Xl) 25 mg DAILY PO Last administered on 01/21/17 08:59; Start 01/17/17 at 14:00 Montelukast Sodium (Singulair) 10 mg HS PO Last administered on 01/20/17 20:51 ; Start 01/17/17 at 21:00 Oxybutynin Chloride (Ditropan) 5 mg BID PO Last administered on 01/22/17 09:07 ; Start 01/17/17 at 14:00 Pantoprazole Sodium (Protonix) 40 mg BIDAC PO Last administered on 01/22/17 06 :05; Start 01/17/17 at 16:30 Senna/Docusate Sodium (Senna Plus) 1 tab QHS PO Last administered on 01/20/17 20:51; Start 01/17/17 at 21:00 Alprazolam (Xanax) 3 mg QHS PO Last administered on 01/20/17 20:52; Start at 21:00; Stop 01/21/17 at 20:30; Status DC Lactobacillus Acidophilus (Bacid, Jodi-Bid) 2 tab QHS PO Last administered on 20:51; Start 01/17/17 at 21:00 Duloxetine HCl (Cymbalta) 60 mg [id number] PO Last administered on 01/22/17 09:00; Start 01/17/17 at 18:00 Escitalopram Oxalate (Lexapro) 20 mg DAILY PO Last administered on 01/22/17 09 :00; Start 01/18/17 at 09:00 Famotidine (Pepcid) 40 mg QHS PO Last administered on 01/20/17 20:51; Start at 21:00 Lamotrigine (LaMICtal) 200 mg BID PO Last administered on 01/22/17 09:01; Start 01/17/17 at 21:00 Cetirizine HCl (ZyrTEC) 10 mg DAILY PO Last administered on 01/22/17 09:01; Start 01/18/17 at 09:00 Meloxicam (Mobic) 15 mg DAILY PO Last administered on 01/22/17 09:02; Start at 14:00 Fish Oil (Fish Oil) 1,000 mg BID PO Last administered on 01/22/17 09:00; Start 01/17/17 at 21:00 Oxycodone HCl (Roxicodone) 20 mg PRN TID PRN PO PAIN Last administered on 03:43; Start 01/17/17 at 13:45 Oxycodone HCl (Roxicodone) 40 mg PRN TID PRN PO PAIN; Start 01/17/17 at 13:45 Sertraline HCl (Zoloft) 200 mg DAILY PO ; Start 01/18/17 at 09:00; Status Cancel Vancomycin HCl 1.5 gm/Sodium Chloride 500 ml @ 250 mls/hr Q12H IV Last administered on 01/18/17 16:21; Start 01/18/17 at 04:00; Stop 01/19/17 at 04:58 ; Status DC Vancomycin HCl 1 each 1X ONCE MC Last administered on 01/19/17 03:30; Start 01/19/17 at 03:30; Stop 01/19/17 at 03:31; Status DC Vancomycin HCl 1.5 gm/Sodium Chloride 500 ml @ 250 mls/hr Q24H IV Last administered on 01/21/17 22:16; Start 01/19/17 at 21:00 Vancomycin HCl 1 each 1X ONCE MC Last administered on 01/20/17 20:30; Start 01/20/17 at 20:30; Stop 01/20/17 at 20:31; Status DC Methylprednisolone Sodium Succinate (SOLU-Medrol 125MG VIAL) 60 mg Q12HR IV Last administered on 01/20/17 20:50; Start 01/20/17 at 11:00; Stop 01/21/17 at 07:52; Status DC Benzonatate (Tessalon Perle) 200 mg TID PO Last administered on 01/22/17 08:58 ; Start 01/20/17 at 12:00 Lorazepam (Ativan) 0.5 mg BID PO Last administered on 01/21/17 09:05; Start at 12:30; Stop 01/21/17 at 20:30; Status DC Morphine Sulfate 2 mg PRN Q1HR PRN IV PAIN Last administered on 01/21/17 20:43 ; Start 01/20/17 at 13:15; Stop 01/21/17 at 22:00; Status DC Morphine Sulfate 10 mg STK-MED ONCE .ROUTE ; Start 01/20/17 at 13:05; Stop 01/20 at 13:06; Status DC Morphine Sulfate 1 mg 1X ONCE IV Last administered on 01/20/17 13:20; Start 01/20/17 at 13:30; Stop 01/20/17 at 13:31; Status DC Promethazine HCl/ Codeine (Phenergan With Codeine) 10 ml PRN Q4HRS PRN PO COUGH Last administered on 01/22/17 10:10; Start 01/21/17 at 07:45 Methylprednisolone Sodium Succinate (SOLU-Medrol 125MG VIAL) 125 mg Q12HR IV Last administered on 01/22/17 08:58; Start 01/21/17 at 09:00 Lorazepam (Ativan) 1 mg BID PO Last administered on 01/22/17 09:08; Start at 21:00 Naloxone HCl (Narcan) 0.4 mg STK-MED ONCE .ROUTE ; Start 01/21/17 at 20:36; Stop 01/21/17 at 20:37; Status DC Albuterol Sulfate (Ventolin Neb Soln) 2.5 mg PRN Q2HR PRN NEB SHORTNESS OF BREATH; Start 01/21/17 at 20:30 Lorazepam (Ativan) 1 mg PRN Q6HRS PRN IV ANXIETY / AGITATION Last administered on 01/21/17 20:54; Start 01/21/17 at 20:30 Furosemide (Lasix) 40 mg 1X ONCE IVP Last administered on 01/21/17 21:32; Start 01/21/17 at 21:30; Stop 01/21/17 at 21:31; Status DC Morphine Sulfate 30 ml @ 0 mls/hr CONT PRN PRN IV PROTOCOL Last administered on 01/22/17 06:33; Start 01/21/17 at 21:30 Active Scripts Active Reported Oxycodone Hcl 10 Mg Tablet 20 Mg PO TID PRN Symbicort 160-4.5 Mcg Inhaler (Budesonide/Formoterol Fumarate) 10.2 Gm Hfa.aer.ad 2 Puff IH BID Alprazolam 2 Mg Tablet 1.5 Tab PO QHS Senna Plus Tablet (Sennosides/Docusate Sodium) 1 Each Tablet 1 Each PO QHS Prednisone 20 Mg Tablet 1 Tab PO DAILY Lisinopril 2.5 Mg Tablet 1 Tab PO DAILY Lamotrigine 200 Mg Tablet 1 Tab PO BID Furosemide 20 Mg Tablet 1 Tab PO DAILY Famotidine 40 Mg Tablet 40 Mg PO HS Lexapro (Escitalopram Oxalate) 20 Mg Tablet 25 Mg PO DAILY Phentermine Hcl 37.5 Mg Tablet 1 Tab PO PRN BID PRN Actonel (Risedronate Sodium) 150 Mg Tablet 1 Tab PO QMONTH Miralax (Polyethylene Glycol 3350) 17 Gm Powd.pack 1 Packet PO DAILY PRN Olopatadine HCl 30.5 Gm [place].pump 30.5 Gm NS DAILY Flonase Allergy Relief (Fluticasone Propionate) 9.9 Ml [place].susp 1 Sprays NS BID FENTANYL 100mcg/hr (Fentanyl) 1 Each Patch.td72 1 Patch TD Q72H Proair Hfa Inhaler (Albuterol Sulfate) 8.5 Gm Hfa.aer.ad 2 Puff INH QID PRN [place]-3 ([place]-3 Fatty Acids) 1,000 Mg Capsule 1,000 Mg PO BID Multi-Vitamin Daily (Multivitamin) 1 Each Tablet 1 Each PO Glucosamine 1,500 Complex Cp (Gluc Becerril/Chondro Becerril A/Vit C/Mn) 1 Each Capsule 1 Each PO BID Calcium Carbonate 600 Mg Tablet 600 Mg PO BID Zoloft (Sertraline Hcl) 100 Mg Tablet 2 Tab PO DAILY Protonix (Pantoprazole Sodium) 40 Mg Tablet.dr 1 Tab PO BID Oxycodone Hcl 20 Mg Tablet 40 Mg PO TID PRN Oxybutynin Chloride 5 Mg Tablet 1 Tab PO BID Montelukast Sodium Tablet (Montelukast Sodium) 10 Mg Tablet 10 Mg PO HS Metoprolol Succinate ( Xl ) (Metoprolol Succinate) 25 Mg Tab.er.24h 1 Tab PO DAILY Mobic (Meloxicam) 15 Mg Tablet 1 Tab PO DAILY Loratadine 10 Mg Tablet 1 Tab PO DAILY Cymbalta (Duloxetine Hcl) 60 Mg Capsule.dr 1 Cap PO [id number] Colace (Docusate Sodium) 100 Mg Capsule 1 Cap PO BID Alprazolam 1 Mg Tablet 1 Tab PO TID Align (Bifidobacterium Infantis) 4 Mg Capsule 4 Mg PO HS Vitals/I & O Vital Sign - Last 24 Hours 01/21/17 01/21/17 01/21/17 01/21/17 10:47 12:05 15:00 17:02 Temp 97.9 97.6 97.9 97.6 Pulse 91 83 Resp 24 24 B/P (MAP) 131/59 (83) 124/59 (80) Pulse Ox 94 94 O2 Delivery Nasal Cannula Nasal Cannula Nasal Cannula Nasal Cannula O2 Flow Rate 5.0 4.0 5.0 4.0 01/21/17 01/21/17 01/21/17 01/21/17 17:52 19:00 19:30 19:41 Temp 98.0 98.0 Pulse 94 Resp 24 B/P (MAP) 173/91 (118) Pulse Ox 90 95 O2 Delivery Nasal Cannula Nasal Cannula Nasal Cannula Nasal Cannula O2 Flow Rate 5.0 5.0 6.0 4.0 01/21/17 01/21/17 01/21/17 01/21/17 20:43 20:50 21:42 22:50 Temp 97.5 97.5 Pulse 86 Resp 32 20 24 B/P (MAP) 80/55 (63) Pulse Ox 98 99 99 O2 Delivery BiPAP/CPAP BiPAP/CPAP BiPAP/CPAP 01/21/17 01/22/17 01/22/17 01/22/17 23:57 00:00 02:55 03:02 Temp 97.5 97.5 Pulse 80 Resp 22 B/P (MAP) 98/53 (68) Pulse Ox 99 99 99 O2 Delivery BiPAP/CPAP BiPAP/CPAP BiPAP/CPAP O2 Flow Rate 4.0 01/22/17 01/22/17 01/22/17 01/22/17 05:22 06:33 07:05 07:15 Resp 22 18 Pulse Ox 99 100 100 O2 Delivery BiPAP/CPAP BiPAP/CPAP BiPAP/CPAP BiPAP/CPAP 01/22/17 01/22/17 01/22/17 07:16 09:13 10:19 Temp 97.5 98.2 97.5 98.2 Pulse 78 80 Resp 23 23 B/P (MAP) 98/57 (71) 112/61 (78) Pulse Ox 99 94 100 O2 Delivery BiPAP/CPAP Nasal Cannula BiPAP/CPAP O2 Flow Rate 4.0 Intake and Output 01/21/17 01/21/17 01/22/17 14:59 22:59 06:59 Intake Total 240 ml 1050 ml 370 ml Output Total 200 ml 2400 ml Balance 40 ml 1050 ml -2030 ml BRITTANY OMALLEY MD January 22, 2017 10:46
--- NOTE | 2017-01-22 10:58 | PDOC ---
PULMONARY PROGRESS NOTES Subjective STILL SOA NOW ON BIPAP IV MORPHINE Vitals Vital Signs Date Time Temp Pulse Resp B/P (MAP) Pulse Ox O2 Delivery O2 Flow Rate FiO2 01/22/17 10:19 98.2 80 23 112/61 (78) 100 BiPAP/CPAP 98.2 01/22/17 09:13 4.0 ROS: No Nausea, No Chest Pain, No Abdominal Pain Lungs: Crackles (bilateral - improved slightly) Cardiovascular: S1, S2 Abdomen: Soft Neuro Exam: Alert Extremities: No Edema Skin: Warm Labs Laboratory Tests Test 01/20/17 16:54 01/20/17 20:09 01/20/17 20:52 01/21/17 03:30 Glucose (Fingerstick) 134 mg/dL (70-99) 146 mg/dL (70-99) Vancomycin Level Trough 18.5 mcg/mL (10.0-20.0) Vancomycin Last Dose Date 01/19/17 Vancomycin Last Dose Time 2100 Sodium Level 145 mmol/L (136-145) Potassium Level 5.3 mmol/L (3.5-5.1) Chloride Level 106 mmol/L (98-107) Carbon Dioxide Level 32 mmol/L (21-32) Anion Gap 7 (6-14) Blood Urea Nitrogen 24 mg/dL (7-20) Creatinine 1.2 mg/dL (0.6-1.0) Estimated GFR (Cockcroft-Gault) 44.9 Glucose Level 135 mg/dL (70-99) Calcium Level 9.0 mg/dL (8.5-10.1) Test 01/21/17 05:00 01/21/17 07:18 01/21/17 10:51 01/21/17 17:05 White Blood Count 6.8 x10^3/uL (4.0-11.0) Red Blood Count 3.59 x10^6/uL (3.50-5.40) Hemoglobin 11.3 g/dL (12.0-15.5) Hematocrit 34.4 % (36.0-47.0) Mean Corpuscular Volume 96 fL (79-100) Mean Corpuscular Hemoglobin 32 pg (25-35) Mean Corpuscular Hemoglobin Concent 33 g/dL (31-37) Red Cell Distribution Width 14.7 % (11.5-14.5) Platelet Count 158 x10^3/uL (140-400) Neutrophils (%) (Auto) 89 % (31-73) Lymphocytes (%) (Auto) 9 % (24-48) Monocytes (%) (Auto) 1 % (0-9) Eosinophils (%) (Auto) 0 % (0-3) Basophils (%) (Auto) 0 % (0-3) Neutrophils # (Auto) 6.1 x10^3uL (1.8-7.7) Lymphocytes # (Auto) 0.6 x10^3/uL (1.0-4.8) Monocytes # (Auto) 0.1 x10^3/uL (0.0-1.1) Eosinophils # (Auto) 0.0 x10^3/uL (0.0-0.7) Basophils # (Auto) 0.0 x10^3/uL (0.0-0.2) Glucose (Fingerstick) 128 mg/dL (70-99) 133 mg/dL (70-99) 120 mg/dL (70-99) Test 01/21/17 20:23 01/22/17 03:20 01/22/17 07:19 Glucose (Fingerstick) 179 mg/dL (70-99) 127 mg/dL (70-99) White Blood Count 11.3 x10^3/uL (4.0-11.0) Red Blood Count 3.58 x10^6/uL (3.50-5.40) Hemoglobin 10.9 g/dL (12.0-15.5) Hematocrit 34.3 % (36.0-47.0) Mean Corpuscular Volume 96 fL (79-100) Mean Corpuscular Hemoglobin 31 pg (25-35) Mean Corpuscular Hemoglobin Concent 32 g/dL (31-37) Red Cell Distribution Width 14.4 % (11.5-14.5) Platelet Count 145 x10^3/uL (140-400) Neutrophils (%) (Auto) 92 % (31-73) Lymphocytes (%) (Auto) 6 % (24-48) Monocytes (%) (Auto) 2 % (0-9) Eosinophils (%) (Auto) 0 % (0-3) Basophils (%) (Auto) 0 % (0-3) Neutrophils # (Auto) 10.5 x10^3uL (1.8-7.7) Lymphocytes # (Auto) 0.6 x10^3/uL (1.0-4.8) Monocytes # (Auto) 0.2 x10^3/uL (0.0-1.1) Eosinophils # (Auto) 0.0 x10^3/uL (0.0-0.7) Basophils # (Auto) 0.0 x10^3/uL (0.0-0.2) Segmented Neutrophils % 89 % (35-66) Band Neutrophils % 7 % (0-9) Lymphocytes % 3 % (24-48) Monocytes % 1 % (0-10) Platelet Estimate Adequate (ADEQUATE) Sodium Level 146 mmol/L (136-145) Potassium Level 4.4 mmol/L (3.5-5.1) Chloride Level 106 mmol/L (98-107) Carbon Dioxide Level 35 mmol/L (21-32) Anion Gap 5 (6-14) Blood Urea Nitrogen 34 mg/dL (7-20) Creatinine 1.3 mg/dL (0.6-1.0) Estimated GFR (Cockcroft-Gault) 41.0 Glucose Level 137 mg/dL (70-99) Calcium Level 8.8 mg/dL (8.5-10.1) Laboratory Tests Test 01/21/17 17:05 01/21/17 20:23 01/22/17 03:20 01/22/17 07:19 Glucose (Fingerstick) 120 mg/dL (70-99) 179 mg/dL (70-99) 127 mg/dL (70-99) White Blood Count 11.3 x10^3/uL (4.0-11.0) Red Blood Count 3.58 x10^6/uL (3.50-5.40) Hemoglobin 10.9 g/dL (12.0-15.5) Hematocrit 34.3 % (36.0-47.0) Mean Corpuscular Volume 96 fL (79-100) Mean Corpuscular Hemoglobin 31 pg (25-35) Mean Corpuscular Hemoglobin Concent 32 g/dL (31-37) Red Cell Distribution Width 14.4 % (11.5-14.5) Platelet Count 145 x10^3/uL (140-400) Neutrophils (%) (Auto) 92 % (31-73) Lymphocytes (%) (Auto) 6 % (24-48) Monocytes (%) (Auto) 2 % (0-9) Eosinophils (%) (Auto) 0 % (0-3) Basophils (%) (Auto) 0 % (0-3) Neutrophils # (Auto) 10.5 x10^3uL (1.8-7.7) Lymphocytes # (Auto) 0.6 x10^3/uL (1.0-4.8) Monocytes # (Auto) 0.2 x10^3/uL (0.0-1.1) Eosinophils # (Auto) 0.0 x10^3/uL (0.0-0.7) Basophils # (Auto) 0.0 x10^3/uL (0.0-0.2) Segmented Neutrophils % 89 % (35-66) Band Neutrophils % 7 % (0-9) Lymphocytes % 3 % (24-48) Monocytes % 1 % (0-10) Platelet Estimate Adequate (ADEQUATE) Sodium Level 146 mmol/L (136-145) Potassium Level 4.4 mmol/L (3.5-5.1) Chloride Level 106 mmol/L (98-107) Carbon Dioxide Level 35 mmol/L (21-32) Anion Gap 5 (6-14) Blood Urea Nitrogen 34 mg/dL (7-20) Creatinine 1.3 mg/dL (0.6-1.0) Estimated GFR (Cockcroft-Gault) 41.0 Glucose Level 137 mg/dL (70-99) Calcium Level 8.8 mg/dL (8.5-10.1) Medications Active Scripts Medications Dose Route/Sig Max Daily Dose Days Date Category Oxycodone Hcl 10 Mg Tablet 20 Mg PO TID PRN 01/17/17 Reported Symbicort 160-4.5 Mcg Inhaler (Budesonide/Formoterol Fumarate) 10.2 Gm Hfa.aer.ad 2 Puff IH BID 01/17/17 Reported Alprazolam 2 Mg Tablet 1.5 Tab PO QHS 01/17/17 Reported Senna Plus Tablet (Sennosides/Docusate Sodium) 1 Each Tablet 1 Each PO QHS 01/17/17 Reported Prednisone 20 Mg Tablet 1 Tab PO DAILY 01/17/17 Reported Lisinopril 2.5 Mg Tablet 1 Tab PO DAILY 01/17/17 Reported Lamotrigine 200 Mg Tablet 1 Tab PO BID 01/17/17 Reported Furosemide 20 Mg Tablet 1 Tab PO DAILY 01/17/17 Reported Famotidine 40 Mg Tablet 40 Mg PO HS 01/17/17 Reported Lexapro (Escitalopram Oxalate) 20 Mg Tablet 25 Mg PO DAILY 01/17/17 Reported Phentermine Hcl 37.5 Mg Tablet 1 Tab PO PRN BID PRN 08/21/16 Reported Actonel (Risedronate Sodium) 150 Mg Tablet 1 Tab PO QMONTH 08/21/16 Reported Miralax (Polyethylene Glycol 3350) 17 Gm Powd.pack 1 Packet PO DAILY PRN 08/21/16 Reported Olopatadine HCl 30.5 Gm [place].pump 30.5 Gm NS DAILY 08/21/16 Reported Flonase Allergy Relief (Fluticasone Propionate) 9.9 Ml [place].susp 1 Sprays NS BID 08/21/16 Reported FENTANYL 100mcg/hr (Fentanyl) 1 Each Patch.td72 1 Patch TD Q72H 08/21/16 Reported Proair Hfa Inhaler (Albuterol Sulfate) 8.5 Gm Hfa.aer.ad 2 Puff INH QID PRN 08/21/16 Reported [place]-3 (B[place]head-3 Fatty Acids) 1,000 Mg Capsule 1,000 Mg PO BID 08/21/16 Reported Multi-Vitamin Daily (Multivitamin) 1 Each Tablet 1 Each PO 08/21/16 Reported Glucosamine 1,500 Complex Cp (Gluc Becerril/Chondro Becerril A/Vit C/Mn) 1 Each Capsule 1 Each PO BID 08/21/16 Reported Calcium Carbonate 600 Mg Tablet 600 Mg PO BID 08/21/16 Reported Zoloft (Sertraline Hcl) 100 Mg Tablet 2 Tab PO DAILY 08/21/16 Reported Protonix (Pantoprazole Sodium) 40 Mg Tablet.dr 1 Tab PO BID 08/21/16 Reported Oxycodone Hcl 20 Mg Tablet 40 Mg PO TID PRN 08/21/16 Reported Oxybutynin Chloride 5 Mg Tablet 1 Tab PO BID 08/21/16 Reported Montelukast Sodium Tablet (Montelukast Sodium) 10 Mg Tablet 10 Mg PO HS 08/21/16 Reported Metoprolol Succinate ( Xl ) (Metoprolol Succinate) 25 Mg Tab.er.24h 1 Tab PO DAILY 08/21/16 Reported Mobic (Meloxicam) 15 Mg Tablet 1 Tab PO DAILY 08/21/16 Reported Loratadine 10 Mg Tablet 1 Tab PO DAILY 08/21/16 Reported Cymbalta (Duloxetine Hcl) 60 Mg Capsule.dr 1 Cap PO BID76 08/21/16 Reported Colace (Docusate Sodium) 100 Mg Capsule 1 Cap PO BID 08/21/16 Reported Alprazolam 1 Mg Tablet 1 Tab PO TID 08/21/16 Reported Align (Bifidobacterium Infantis) 4 Mg Capsule 4 Mg PO HS 08/21/16 Reported Comments CXR REVIEWED NO CHANGE Impression . 1. Acute on chronic respiratory failure secondary to underlying pulmonary fibrosis, interstitial lung disease and chronic bronchiectasis. 2. Concurrent superimposed pneumonia and acute exacerbation of COPD leading toincreasing shortness of breath. 3. Subjective fever at home. 4. Hypertension. 5. Hyperlipidemia. 6. Cough sec to above Plan . ON BIPAP, IV MORPHINE WILL INCREASE BENZO SPOKE WITH RN POOR PROGNOSIS MAY PT BETTER WITH INCREASE SOLUMEDROL WILL INCREASE FREQUENCY OF COUGH SUPPRESSANT CONTINUE 02 DNR/DNI DVT PROPHYLAXIS LINTETE EDWARDS MD January 22, 2017 10:58
[2017-01-22] MEDS: ENOXAPARIN 40 MG/0.4 ML SYRINGE. SQ SCH ×2 (12:00→21:10)
[2017-01-22] MEDS: IV NORMAL SALINE 1000ML BAG 1,000 ML IV SCH (12:20)
[2017-01-22 15:03] VITALS: BP 104/63
[2017-01-22 19:00] VITALS: BP 110/56
[2017-01-22] MEDS: VANCOMYCIN 1.5 GM in IV NORMAL SALINE 500ML BAG 500 ML IV SCH (21:09)
[2017-01-22] MEDS: LACTOBACILLUS ACIDOPH & BULGAR 1 TABLET. PO SCH (21:10)
[2017-01-22] MEDS: MONTELUKAST SODIUM 10 MG TABLET. PO SCH (21:10)
[2017-01-22] MEDS: FAMOTIDINE 20 MG TABLET. PO SCH (21:11)
[2017-01-22] MEDS: SENNOSIDES/DOCUSATE 8.6/50MG TABLET. PO SCH (21:12)
[2017-01-22 23:20] VITALS: BP 96/63
[2017-01-23] MEDS: PIPERACILLIN/TAZOBACTAM 3.375 GM in IV NORMAL SALINE 50ML 50 ML IV SCH ×4 (01:19→18:06)
[2017-01-23] MEDS: MORPHINE SULFATE/PF 30 ML IV PRN (03:00)
[2017-01-23 03:20] VITALS: BP 130/70
[2017-01-23] MEDS: IV NORMAL SALINE 1000ML BAG 1,000 ML IV SCH (05:00)
[2017-01-23 06:36] LABS: CALCIUM 8.7 mg/dL (8.5-10.1); CREATININE 1.1 mg/dL (0.6-1.0); GFR 49.7
[2017-01-23 06:43] LABS: BASO % 0 % (0-3); EOS % 0 % (0-3); HEMATOCRIT 31.8 % (36.0-47.0); HEMOGLOBIN 10.3 g/dL (12.0-15.5); LYMPH # 0.6 x10^3/uL (1.0-4.8); LYMPH % 6 % (24-48); MEAN CORPUSCULAR HEMOGLOBIN 31 pg (25-35); MEAN CORPUSCULAR HGB CONC 32 g/dL (31-37); MEAN CORPUSCULAR VOLUME 96 fL (79-100); MONO % 3 % (0-9); NEUT % 91 % (31-73); PLATELET COUNT 152 x10^3/uL (140-400); RED BLOOD COUNT 3.31 x10^6/uL (3.50-5.40); RED CELL DISTRIBUTION WIDTH 14.1 % (11.5-14.5); WHITE BLOOD COUNT 9.9 x10^3/uL (4.0-11.0)
[2017-01-23 07:00] VITALS: BP 130/66
[2017-01-23] MEDS: IPRATRPIUM/ALBUTEROL 0.5/2.5MG 3 ML NEBU. NEB SCH ×4 (07:16→20:22)
[2017-01-23] MEDS: DOCUSATE SODIUM 100 MG CAPSULE. PO SCH ×2 (08:53→21:34)
[2017-01-23] MEDS: OMEGA-3 FATTY ACIDS/FISH OIL 1,000 MG CAPSULE. PO SCH ×2 (08:53→21:35)
[2017-01-23] MEDS: MELOXICAM 7.5 MG TABLET PO SCH (08:53)
[2017-01-23] MEDS: ESCITALOPRAM 10 MG TABLET. PO SCH (08:53)
[2017-01-23] MEDS: LISINOPRIL 2.5 MG TABLET PO SCH (08:54)
[2017-01-23] MEDS: lamoTRIgine 100 MG TABLET. PO SCH ×2 (08:54→21:34)
[2017-01-23] MEDS: BENZONATATE 100 MG CAPSULE. PO SCH ×3 (08:55→21:34)
[2017-01-23] MEDS: CETIRIZINE HCL 10 MG TABLET. PO SCH (08:55)
[2017-01-23] MEDS: METOPROLOL SUCC 24HR ER 25 MG TAB.ER.24H. PO SCH (08:55)
[2017-01-23] MEDS: PANTOPRAZOLE 40 MG TABLET.DR. PO SCH ×2 (08:55→18:06)
[2017-01-23] MEDS: FUROSEMIDE 20 MG TABLET PO SCH (08:55)
[2017-01-23] MEDS: OXYBUTYNIN CHLORIDE 5 MG TABLET PO SCH ×2 (08:55→21:35)
[2017-01-23] MEDS: LORazepam 1 MG TABLET PO SCH ×3 (08:56→21:35)
[2017-01-23] MEDS: methylPREDNISolone SOD SUCC PF 125 MG/2 ML VIAL. IV SCH ×2 (08:58→21:36)
[2017-01-23] MEDS: ENOXAPARIN 40 MG/0.4 ML SYRINGE. SQ SCH ×2 (08:58→21:38)
[2017-01-23] MEDS: DULoxetine HCL 30 MG CAPSULE.DR PO SCH ×2 (09:07→18:06)
[2017-01-23 10:47] VITALS: BP 120/66
--- NOTE | 2017-01-23 11:02 | PDOC ---
PULMONARY PROGRESS NOTES Subjective STILL SOA , OFF BIPAP Vitals Vital Signs Date Time Temp Pulse Resp B/P (MAP) Pulse Ox O2 Delivery O2 Flow Rate FiO2 01/23/17 10:47 97.5 69 24 120/66 (84) 100 BiPAP/CPAP 97.5 01/23/17 08:00 4.0 ROS: No Nausea, No Chest Pain, No Abdominal Pain Lungs: Crackles (bilateral - improved slightly) Cardiovascular: S1, S2 Abdomen: Soft Neuro Exam: Alert Extremities: No Edema Skin: Warm Labs Laboratory Tests Test 01/21/17 17:05 01/21/17 20:23 01/22/17 03:20 01/22/17 07:19 Glucose (Fingerstick) 120 mg/dL (70-99) 179 mg/dL (70-99) 127 mg/dL (70-99) White Blood Count 11.3 x10^3/uL (4.0-11.0) Red Blood Count 3.58 x10^6/uL (3.50-5.40) Hemoglobin 10.9 g/dL (12.0-15.5) Hematocrit 34.3 % (36.0-47.0) Mean Corpuscular Volume 96 fL (79-100) Mean Corpuscular Hemoglobin 31 pg (25-35) Mean Corpuscular Hemoglobin Concent 32 g/dL (31-37) Red Cell Distribution Width 14.4 % (11.5-14.5) Platelet Count 145 x10^3/uL (140-400) Neutrophils (%) (Auto) 92 % (31-73) Lymphocytes (%) (Auto) 6 % (24-48) Monocytes (%) (Auto) 2 % (0-9) Eosinophils (%) (Auto) 0 % (0-3) Basophils (%) (Auto) 0 % (0-3) Neutrophils # (Auto) 10.5 x10^3uL (1.8-7.7) Lymphocytes # (Auto) 0.6 x10^3/uL (1.0-4.8) Monocytes # (Auto) 0.2 x10^3/uL (0.0-1.1) Eosinophils # (Auto) 0.0 x10^3/uL (0.0-0.7) Basophils # (Auto) 0.0 x10^3/uL (0.0-0.2) Segmented Neutrophils % 89 % (35-66) Band Neutrophils % 7 % (0-9) Lymphocytes % 3 % (24-48) Monocytes % 1 % (0-10) Platelet Estimate Adequate (ADEQUATE) Sodium Level 146 mmol/L (136-145) Potassium Level 4.4 mmol/L (3.5-5.1) Chloride Level 106 mmol/L (98-107) Carbon Dioxide Level 35 mmol/L (21-32) Anion Gap 5 (6-14) Blood Urea Nitrogen 34 mg/dL (7-20) Creatinine 1.3 mg/dL (0.6-1.0) Estimated GFR (Cockcroft-Gault) 41.0 Glucose Level 137 mg/dL (70-99) Calcium Level 8.8 mg/dL (8.5-10.1) Test 01/22/17 10:21 01/22/17 16:24 01/22/17 20:35 01/23/17 06:15 Glucose (Fingerstick) 168 mg/dL (70-99) 151 mg/dL (70-99) 111 mg/dL (70-99) White Blood Count 9.9 x10^3/uL (4.0-11.0) Red Blood Count 3.31 x10^6/uL (3.50-5.40) Hemoglobin 10.3 g/dL (12.0-15.5) Hematocrit 31.8 % (36.0-47.0) Mean Corpuscular Volume 96 fL (79-100) Mean Corpuscular Hemoglobin 31 pg (25-35) Mean Corpuscular Hemoglobin Concent 32 g/dL (31-37) Red Cell Distribution Width 14.1 % (11.5-14.5) Platelet Count 152 x10^3/uL (140-400) Neutrophils (%) (Auto) 91 % (31-73) Lymphocytes (%) (Auto) 6 % (24-48) Monocytes (%) (Auto) 3 % (0-9) Eosinophils (%) (Auto) 0 % (0-3) Basophils (%) (Auto) 0 % (0-3) Neutrophils # (Auto) 9.0 x10^3uL (1.8-7.7) Lymphocytes # (Auto) 0.6 x10^3/uL (1.0-4.8) Monocytes # (Auto) 0.3 x10^3/uL (0.0-1.1) Eosinophils # (Auto) 0.0 x10^3/uL (0.0-0.7) Basophils # (Auto) 0.0 x10^3/uL (0.0-0.2) Sodium Level 144 mmol/L (136-145) Potassium Level 5.0 mmol/L (3.5-5.1) Chloride Level 106 mmol/L (98-107) Carbon Dioxide Level 37 mmol/L (21-32) Anion Gap 1 (6-14) Blood Urea Nitrogen 33 mg/dL (7-20) Creatinine 1.1 mg/dL (0.6-1.0) Estimated GFR (Cockcroft-Gault) 49.7 Glucose Level 133 mg/dL (70-99) Calcium Level 8.7 mg/dL (8.5-10.1) Test 01/23/17 07:31 Glucose (Fingerstick) 122 mg/dL (70-99) Laboratory Tests Test 01/22/17 16:24 01/22/17 20:35 01/23/17 06:15 01/23/17 07:31 Glucose (Fingerstick) 151 mg/dL (70-99) 111 mg/dL (70-99) 122 mg/dL (70-99) White Blood Count 9.9 x10^3/uL (4.0-11.0) Red Blood Count 3.31 x10^6/uL (3.50-5.40) Hemoglobin 10.3 g/dL (12.0-15.5) Hematocrit 31.8 % (36.0-47.0) Mean Corpuscular Volume 96 fL (79-100) Mean Corpuscular Hemoglobin 31 pg (25-35) Mean Corpuscular Hemoglobin Concent 32 g/dL (31-37) Red Cell Distribution Width 14.1 % (11.5-14.5) Platelet Count 152 x10^3/uL (140-400) Neutrophils (%) (Auto) 91 % (31-73) Lymphocytes (%) (Auto) 6 % (24-48) Monocytes (%) (Auto) 3 % (0-9) Eosinophils (%) (Auto) 0 % (0-3) Basophils (%) (Auto) 0 % (0-3) Neutrophils # (Auto) 9.0 x10^3uL (1.8-7.7) Lymphocytes # (Auto) 0.6 x10^3/uL (1.0-4.8) Monocytes # (Auto) 0.3 x10^3/uL (0.0-1.1) Eosinophils # (Auto) 0.0 x10^3/uL (0.0-0.7) Basophils # (Auto) 0.0 x10^3/uL (0.0-0.2) Sodium Level 144 mmol/L (136-145) Potassium Level 5.0 mmol/L (3.5-5.1) Chloride Level 106 mmol/L (98-107) Carbon Dioxide Level 37 mmol/L (21-32) Anion Gap 1 (6-14) Blood Urea Nitrogen 33 mg/dL (7-20) Creatinine 1.1 mg/dL (0.6-1.0) Estimated GFR (Cockcroft-Gault) 49.7 Glucose Level 133 mg/dL (70-99) Calcium Level 8.7 mg/dL (8.5-10.1) Medications Active Scripts Medications Dose Route/Sig Max Daily Dose Days Date Category Oxycodone Hcl 10 Mg Tablet 20 Mg PO TID PRN 01/17/17 Reported Symbicort 160-4.5 Mcg Inhaler (Budesonide/Formoterol Fumarate) 10.2 Gm Hfa.aer.ad 2 Puff IH BID 01/17/17 Reported Alprazolam 2 Mg Tablet 1.5 Tab PO QHS 01/17/17 Reported Senna Plus Tablet (Sennosides/Docusate Sodium) 1 Each Tablet 1 Each PO QHS 01/17/17 Reported Prednisone 20 Mg Tablet 1 Tab PO DAILY 01/17/17 Reported Lisinopril 2.5 Mg Tablet 1 Tab PO DAILY 01/17/17 Reported Lamotrigine 200 Mg Tablet 1 Tab PO BID 01/17/17 Reported Furosemide 20 Mg Tablet 1 Tab PO DAILY 01/17/17 Reported Famotidine 40 Mg Tablet 40 Mg PO HS 01/17/17 Reported Lexapro (Escitalopram Oxalate) 20 Mg Tablet 25 Mg PO DAILY 01/17/17 Reported Phentermine Hcl 37.5 Mg Tablet 1 Tab PO PRN BID PRN 08/21/16 Reported Actonel (Risedronate Sodium) 150 Mg Tablet 1 Tab PO QMONTH 08/21/16 Reported Miralax (Polyethylene Glycol 3350) 17 Gm Powd.pack 1 Packet PO DAILY PRN 08/21/16 Reported Olopatadine HCl 30.5 Gm [place].pump 30.5 Gm NS DAILY 08/21/16 Reported Flonase Allergy Relief (Fluticasone Propionate) 9.9 Ml [place].susp 1 Sprays NS BID 08/21/16 Reported FENTANYL 100mcg/hr (Fentanyl) 1 Each Patch.td72 1 Patch TD Q72H 08/21/16 Reported Proair Hfa Inhaler (Albuterol Sulfate) 8.5 Gm Hfa.aer.ad 2 Puff INH QID PRN 08/21/16 Reported [place]-3 (Sullivan-3 Fatty Acids) 1,000 Mg Capsule 1,000 Mg PO BID 08/21/16 Reported Multi-Vitamin Daily (Multivitamin) 1 Each Tablet 1 Each PO 08/21/16 Reported Glucosamine 1,500 Complex Cp (Gluc Becerril/Chondro Becerril A/Vit C/Mn) 1 Each Capsule 1 Each PO BID 08/21/16 Reported Calcium Carbonate 600 Mg Tablet 600 Mg PO BID 08/21/16 Reported Zoloft (Sertraline Hcl) 100 Mg Tablet 2 Tab PO DAILY 08/21/16 Reported Protonix (Pantoprazole Sodium) 40 Mg Tablet.dr 1 Tab PO BID 08/21/16 Reported Oxycodone Hcl 20 Mg Tablet 40 Mg PO TID PRN 08/21/16 Reported Oxybutynin Chloride 5 Mg Tablet 1 Tab PO BID 08/21/16 Reported Montelukast Sodium Tablet (Montelukast Sodium) 10 Mg Tablet 10 Mg PO HS 08/21/16 Reported Metoprolol Succinate ( Xl ) (Metoprolol Succinate) 25 Mg Tab.er.24h 1 Tab PO DAILY 08/21/16 Reported Mobic (Meloxicam) 15 Mg Tablet 1 Tab PO DAILY 08/21/16 Reported Loratadine 10 Mg Tablet 1 Tab PO DAILY 08/21/16 Reported Cymbalta (Duloxetine Hcl) 60 Mg Capsule.dr 1 Cap PO BID76 08/21/16 Reported Colace (Docusate Sodium) 100 Mg Capsule 1 Cap PO BID 08/21/16 Reported Alprazolam 1 Mg Tablet 1 Tab PO TID 08/21/16 Reported Align (Bifidobacterium Infantis) 4 Mg Capsule 4 Mg PO HS 08/21/16 Reported Comments CXR REVIEWED NO CHANGE Impression . 1. Acute on chronic respiratory failure secondary to underlying pulmonary fibrosis, interstitial lung disease and chronic bronchiectasis.? ETIOLOGY/? sarcoidosis 2. Concurrent superimposed pneumonia 3. Subjective fever at home. 4. Hypertension. 5. Hyperlipidemia. 6. Cough sec to above Plan . PRN BIPAP, PRN NARCOTICS / BENZO IV STEROIDS/ MAY RESPOND IF ITS SARCOIDOSIS COUGH SUPPRESSANT CONTINUE 02 DNR/DNI DVT PROPHYLAXIS NANCY KABA MD January 23, 2017 11:02
--- NOTE | 2017-01-23 11:24 | PDOC ---
PROGRESS NOTES Chief Complaint Chief Complaint 1. Acute on chronic respiratory failure secondary to underlying pulmonary fibrosis, interstitial lung disease and chronic bronchiectasis. 2. Concurrent superimposed pneumonia and acute exacerbation of COPD leading toincreasing shortness of breath. 3. Subjective fever at home. 4. Hypertension. 5. Hyperlipidemia. 6. Cough sec to above 7. Obesity 8. DNR History of Present Illness History of Present Illness On BIPAP CAn be anxious MOrphine [employer] dcd by pulmo today On steroids IV LAbs ok WBC normal Anemai,s table CXR: 01/22: Impression: 1. No change from the recent study. DNR/DNI Other notes reviewed Pt has been to [facility] - does not want to go back there Sta up to chair x 2 hrs today, then got tired PLAN: COnt BIPAP Anxiolytic JUDICIOUS only Supportive meds Eats in between BIPAP Pulmo looking at possibly adjusting steroid dose dw family and RN Vitals Vitals Vital Signs Date Time Temp Pulse Resp B/P (MAP) Pulse Ox O2 Delivery O2 Flow Rate FiO2 01/23/17 10:47 97.5 69 24 120/66 (84) 100 BiPAP/CPAP 97.5 01/23/17 08:00 4.0 Physical Exam General: Alert, Oriented X3, Cooperative, mild distress Heart: Regular rate, Normal S1, Normal S2, Other (2/6 systolic murmur ) Lungs: Crackles (bilateral - improved slightly) Abdomen: Soft, No tenderness Extremities: No edema, Normal pulses Skin: No breakdown, No significant lesion Labs LABS Laboratory Tests Test 01/22/17 16:24 01/22/17 20:35 01/23/17 06:15 01/23/17 07:31 Glucose (Fingerstick) 151 mg/dL (70-99) 111 mg/dL (70-99) 122 mg/dL (70-99) White Blood Count 9.9 x10^3/uL (4.0-11.0) Red Blood Count 3.31 x10^6/uL (3.50-5.40) Hemoglobin 10.3 g/dL (12.0-15.5) Hematocrit 31.8 % (36.0-47.0) Mean Corpuscular Volume 96 fL (79-100) Mean Corpuscular Hemoglobin 31 pg (25-35) Mean Corpuscular Hemoglobin Concent 32 g/dL (31-37) Red Cell Distribution Width 14.1 % (11.5-14.5) Platelet Count 152 x10^3/uL (140-400) Neutrophils (%) (Auto) 91 % (31-73) Lymphocytes (%) (Auto) 6 % (24-48) Monocytes (%) (Auto) 3 % (0-9) Eosinophils (%) (Auto) 0 % (0-3) Basophils (%) (Auto) 0 % (0-3) Neutrophils # (Auto) 9.0 x10^3uL (1.8-7.7) Lymphocytes # (Auto) 0.6 x10^3/uL (1.0-4.8) Monocytes # (Auto) 0.3 x10^3/uL (0.0-1.1) Eosinophils # (Auto) 0.0 x10^3/uL (0.0-0.7) Basophils # (Auto) 0.0 x10^3/uL (0.0-0.2) Sodium Level 144 mmol/L (136-145) Potassium Level 5.0 mmol/L (3.5-5.1) Chloride Level 106 mmol/L (98-107) Carbon Dioxide Level 37 mmol/L (21-32) Anion Gap 1 (6-14) Blood Urea Nitrogen 33 mg/dL (7-20) Creatinine 1.1 mg/dL (0.6-1.0) Estimated GFR (Cockcroft-Gault) 49.7 Glucose Level 133 mg/dL (70-99) Calcium Level 8.7 mg/dL (8.5-10.1) Review of Systems Review of Systems on bipap, limited Comment Review of Relevant I have reviewed the following items jared (where applicable) has been applied. Labs Laboratory Tests Test 01/21/17 17:05 01/21/17 20:23 01/22/17 03:20 01/22/17 07:19 Glucose (Fingerstick) 120 mg/dL (70-99) 179 mg/dL (70-99) 127 mg/dL (70-99) White Blood Count 11.3 x10^3/uL (4.0-11.0) Red Blood Count 3.58 x10^6/uL (3.50-5.40) Hemoglobin 10.9 g/dL (12.0-15.5) Hematocrit 34.3 % (36.0-47.0) Mean Corpuscular Volume 96 fL (79-100) Mean Corpuscular Hemoglobin 31 pg (25-35) Mean Corpuscular Hemoglobin Concent 32 g/dL (31-37) Red Cell Distribution Width 14.4 % (11.5-14.5) Platelet Count 145 x10^3/uL (140-400) Neutrophils (%) (Auto) 92 % (31-73) Lymphocytes (%) (Auto) 6 % (24-48) Monocytes (%) (Auto) 2 % (0-9) Eosinophils (%) (Auto) 0 % (0-3) Basophils (%) (Auto) 0 % (0-3) Neutrophils # (Auto) 10.5 x10^3uL (1.8-7.7) Lymphocytes # (Auto) 0.6 x10^3/uL (1.0-4.8) Monocytes # (Auto) 0.2 x10^3/uL (0.0-1.1) Eosinophils # (Auto) 0.0 x10^3/uL (0.0-0.7) Basophils # (Auto) 0.0 x10^3/uL (0.0-0.2) Segmented Neutrophils % 89 % (35-66) Band Neutrophils % 7 % (0-9) Lymphocytes % 3 % (24-48) Monocytes % 1 % (0-10) Platelet Estimate Adequate (ADEQUATE) Sodium Level 146 mmol/L (136-145) Potassium Level 4.4 mmol/L (3.5-5.1) Chloride Level 106 mmol/L (98-107) Carbon Dioxide Level 35 mmol/L (21-32) Anion Gap 5 (6-14) Blood Urea Nitrogen 34 mg/dL (7-20) Creatinine 1.3 mg/dL (0.6-1.0) Estimated GFR (Cockcroft-Gault) 41.0 Glucose Level 137 mg/dL (70-99) Calcium Level 8.8 mg/dL (8.5-10.1) Test 01/22/17 10:21 01/22/17 16:24 01/22/17 20:35 01/23/17 06:15 Glucose (Fingerstick) 168 mg/dL (70-99) 151 mg/dL (70-99) 111 mg/dL (70-99) White Blood Count 9.9 x10^3/uL (4.0-11.0) Red Blood Count 3.31 x10^6/uL (3.50-5.40) Hemoglobin 10.3 g/dL (12.0-15.5) Hematocrit 31.8 % (36.0-47.0) Mean Corpuscular Volume 96 fL (79-100) Mean Corpuscular Hemoglobin 31 pg (25-35) Mean Corpuscular Hemoglobin Concent 32 g/dL (31-37) Red Cell Distribution Width 14.1 % (11.5-14.5) Platelet Count 152 x10^3/uL (140-400) Neutrophils (%) (Auto) 91 % (31-73) Lymphocytes (%) (Auto) 6 % (24-48) Monocytes (%) (Auto) 3 % (0-9) Eosinophils (%) (Auto) 0 % (0-3) Basophils (%) (Auto) 0 % (0-3) Neutrophils # (Auto) 9.0 x10^3uL (1.8-7.7) Lymphocytes # (Auto) 0.6 x10^3/uL (1.0-4.8) Monocytes # (Auto) 0.3 x10^3/uL (0.0-1.1) Eosinophils # (Auto) 0.0 x10^3/uL (0.0-0.7) Basophils # (Auto) 0.0 x10^3/uL (0.0-0.2) Sodium Level 144 mmol/L (136-145) Potassium Level 5.0 mmol/L (3.5-5.1) Chloride Level 106 mmol/L (98-107) Carbon Dioxide Level 37 mmol/L (21-32) Anion Gap 1 (6-14) Blood Urea Nitrogen 33 mg/dL (7-20) Creatinine 1.1 mg/dL (0.6-1.0) Estimated GFR (Cockcroft-Gault) 49.7 Glucose Level 133 mg/dL (70-99) Calcium Level 8.7 mg/dL (8.5-10.1) Test 01/23/17 07:31 Glucose (Fingerstick) 122 mg/dL (70-99) Laboratory Tests Test 01/22/17 16:24 01/22/17 20:35 01/23/17 06:15 01/23/17 07:31 Glucose (Fingerstick) 151 mg/dL (70-99) 111 mg/dL (70-99) 122 mg/dL (70-99) White Blood Count 9.9 x10^3/uL (4.0-11.0) Red Blood Count 3.31 x10^6/uL (3.50-5.40) Hemoglobin 10.3 g/dL (12.0-15.5) Hematocrit 31.8 % (36.0-47.0) Mean Corpuscular Volume 96 fL (79-100) Mean Corpuscular Hemoglobin 31 pg (25-35) Mean Corpuscular Hemoglobin Concent 32 g/dL (31-37) Red Cell Distribution Width 14.1 % (11.5-14.5) Platelet Count 152 x10^3/uL (140-400) Neutrophils (%) (Auto) 91 % (31-73) Lymphocytes (%) (Auto) 6 % (24-48) Monocytes (%) (Auto) 3 % (0-9) Eosinophils (%) (Auto) 0 % (0-3) Basophils (%) (Auto) 0 % (0-3) Neutrophils # (Auto) 9.0 x10^3uL (1.8-7.7) Lymphocytes # (Auto) 0.6 x10^3/uL (1.0-4.8) Monocytes # (Auto) 0.3 x10^3/uL (0.0-1.1) Eosinophils # (Auto) 0.0 x10^3/uL (0.0-0.7) Basophils # (Auto) 0.0 x10^3/uL (0.0-0.2) Sodium Level 144 mmol/L (136-145) Potassium Level 5.0 mmol/L (3.5-5.1) Chloride Level 106 mmol/L (98-107) Carbon Dioxide Level 37 mmol/L (21-32) Anion Gap 1 (6-14) Blood Urea Nitrogen 33 mg/dL (7-20) Creatinine 1.1 mg/dL (0.6-1.0) Estimated GFR (Cockcroft-Gault) 49.7 Glucose Level 133 mg/dL (70-99) Calcium Level 8.7 mg/dL (8.5-10.1) Medications Current Medications Sodium Chloride 1,000 ml @ 60 mls/hr [id number] IV Last administered on 06:26; Start 01/16/17 at 23:00 Ondansetron HCl (Zofran) 4 mg PRN Q6HRS PRN IV NAUSEA/VOMITING; Start 01/16/17 at 23:00; Stop 01/17/17 at 13:31; Status DC Oxycodone HCl (Roxicodone) 10 mg PRN Q8HRS PRN PO SEVERE PAIN; Start 01/16/17 at 23:00; Stop 01/19/17 at 09:42; Status DC Acetaminophen (Tylenol) 650 mg PRN Q6HRS PRN PO Headaches, Temp > 101.5F; Start 01/16/17 at 22:45; Stop 01/17/17 at 10:06; Status DC Docusate Sodium (Colace) 100 mg BID PO ; Start 01/17/17 at 09:00; Stop 01/17/17 at 13:31; Status DC Enoxaparin Sodium (Lovenox 40mg Syringe) 40 mg Q24H SQ Last administered on 00:33; Start 01/16/17 at 23:00; Stop 01/17/17 at 10:01; Status DC Hydrocortisone Sodium Succinate (Solu-CORTEF) 60 mg Q12HR IV Last administered on 01/17/17 09:42; Start 01/17/17 at 09:00; Stop 01/17/17 at 13:29; Status DC Famotidine (Pepcid) 20 mg QHS PO ; Start 01/17/17 at 21:00; Stop 01/17/17 at 21: 00; Status DC Albuterol/ Ipratropium (Duoneb) 3 ml RTQID NEB Last administered on 01/23/17 07:16; Start 01/17/17 at 08:00 Alprazolam (Xanax) 1 mg PRN Q8HRS PRN PO ANXIETY / AGITATION Last administered on 01/20/17 11:51; Start 01/17/17 at 00:15; Stop 01/21/17 at 20:30; Status DC Albuterol/ Ipratropium (Duoneb) 3 ml 1X ONCE NEB Last administered on 02:49; Start 01/17/17 at 02:45; Stop 01/17/17 at 02:46; Status DC Guaifenesin (Robitussin Dm) 10 ml PRN Q6HRS PRN PO COUGH Last administered on 12:04; Start 01/17/17 at 02:45; Stop 01/21/17 at 07:40; Status DC Enoxaparin Sodium (Lovenox 40mg Syringe) 40 mg BID SQ Last administered on 01/23 08:58; Start 01/17/17 at 21:00 Acetaminophen (Tylenol) 325 mg PRN Q6HRS PRN PO MILD PAIN / TEMP; Start at 10:15 Acetaminophen/ Hydrocodone Bitart (Lortab 5/325) 1 tab PRN Q6HRS PRN PO MODERATE PAIN Last administered on 01/21/17 17:52; Start 01/17/17 at 10:15; Stop 01/21/17 at 20:30; Status DC Hydralazine HCl (Apresoline) 10 mg PRN Q4HRS PRN IVP ELEVATED BP, SEE COMMENTS ; Start 01/17/17 at 10:15 Ondansetron HCl (Zofran) 4 mg PRN Q8HRS PRN IV NAUSEA/VOMITING; Start 01/17/17 at 10:15 Albuterol Sulfate (Ventolin Neb Soln) 2.5 mg PRN Q4HRS PRN NEB SHORTNESS OF BREATH Last administered on 01/21/17 20:59; Start 01/17/17 at 10:15; Stop 01/22 at 10:17; Status DC Methylprednisolone Sodium Succinate (SOLU-Medrol 40MG VIAL) 40 mg Q8HRS IV Last administered on 01/17/17 21:04; Start 01/17/17 at 14:00; Stop 01/17/17 at 21:53; Status DC Piperacillin Sod/ Tazobactam Sod 3.375 gm/Sodium Chloride 50 ml @ 100 mls/hr Q6HRS IV Last administered on 01/23/17 05:53; Start 01/17/17 at 18:00 Levofloxacin/ Dextrose 150 ml @ 100 mls/hr Q24H IV Last administered on 14:21; Start 01/17/17 at 13:30 Vancomycin HCl (Vanco Per Pharmacy) 1 each PRN DAILY PRN MC SEE COMMENTS Last administered on 01/20/17 22:39; Start 01/17/17 at 13:15 Guaifenesin/ Codeine Phosphate (Robitussin Ac) 5 ml PRN Q6HRS PRN PO COUGH Last administered on 01/21/17 03:42; Start 01/17/17 at 13:15; Stop 01/21/17 at 07:40; Status DC Vancomycin HCl 2 gm/Sodium Chloride 500 ml @ 250 mls/hr 1X ONCE IV Last administered on 01/17/17 15:21; Start 01/17/17 at 13:30; Stop 01/17/17 at 15:29 ; Status DC Docusate Sodium (Colace) 100 mg BID PO Last administered on 01/23/17 08:53; Start 01/17/17 at 21:00 Furosemide (Lasix) 20 mg DAILY PO Last administered on 01/23/17 08:55; Start 01/17/17 at 14:00 Lisinopril (Prinivil) 2.5 mg DAILY PO Last administered on 01/23/17 08:54; Start 01/17/17 at 14:00 Metoprolol Succinate (Toprol Xl) 25 mg DAILY PO Last administered on 01/23/17 08:55; Start 01/17/17 at 14:00 Montelukast Sodium (Singulair) 10 mg HS PO Last administered on 01/22/17 21:10 ; Start 01/17/17 at 21:00 Oxybutynin Chloride (Ditropan) 5 mg BID PO Last administered on 01/23/17 08:55 ; Start 01/17/17 at 14:00 Pantoprazole Sodium (Protonix) 40 mg BIDAC PO Last administered on 01/23/17 08 :55; Start 01/17/17 at 16:30 Senna/Docusate Sodium (Senna Plus) 1 tab QHS PO Last administered on 01/22/17 21:12; Start 01/17/17 at 21:00 Alprazolam (Xanax) 3 mg QHS PO Last administered on 01/20/17 20:52; Start at 21:00; Stop 01/21/17 at 20:30; Status DC Lactobacillus Acidophilus (Bacid, Jodi-Bid) 2 tab QHS PO Last administered on 21:10; Start 01/17/17 at 21:00 Duloxetine HCl (Cymbalta) 60 mg [id number] PO Last administered on 01/23/17 09:07; Start 01/17/17 at 18:00 Escitalopram Oxalate (Lexapro) 20 mg DAILY PO Last administered on 01/23/17 08 :53; Start 01/18/17 at 09:00 Famotidine (Pepcid) 40 mg QHS PO Last administered on 01/22/17 21:11; Start at 21:00 Lamotrigine (LaMICtal) 200 mg BID PO Last administered on 01/23/17 08:54; Start 01/17/17 at 21:00 Cetirizine HCl (ZyrTEC) 10 mg DAILY PO Last administered on 01/23/17 08:55; Start 01/18/17 at 09:00 Meloxicam (Mobic) 15 mg DAILY PO Last administered on 01/23/17 08:53; Start at 14:00 Fish Oil (Fish Oil) 1,000 mg BID PO Last administered on 01/23/17 08:53; Start 01/17/17 at 21:00 Oxycodone HCl (Roxicodone) 20 mg PRN TID PRN PO PAIN Last administered on 03:43; Start 01/17/17 at 13:45 Oxycodone HCl (Roxicodone) 40 mg PRN TID PRN PO PAIN; Start 01/17/17 at 13:45 Sertraline HCl (Zoloft) 200 mg DAILY PO ; Start 01/18/17 at 09:00; Status Cancel Vancomycin HCl 1.5 gm/Sodium Chloride 500 ml @ 250 mls/hr Q12H IV Last administered on 01/18/17 16:21; Start 01/18/17 at 04:00; Stop 01/19/17 at 04:58 ; Status DC Vancomycin HCl 1 each 1X ONCE MC Last administered on 01/19/17 03:30; Start 01/19/17 at 03:30; Stop 01/19/17 at 03:31; Status DC Vancomycin HCl 1.5 gm/Sodium Chloride 500 ml @ 250 mls/hr Q24H IV Last administered on 01/22/17 21:09; Start 01/19/17 at 21:00 Vancomycin HCl 1 each 1X ONCE MC Last administered on 01/20/17 20:30; Start 01/20/17 at 20:30; Stop 01/20/17 at 20:31; Status DC Methylprednisolone Sodium Succinate (SOLU-Medrol 125MG VIAL) 60 mg Q12HR IV Last administered on 01/20/17 20:50; Start 01/20/17 at 11:00; Stop 01/21/17 at 07:52; Status DC Benzonatate (Tessalon Perle) 200 mg TID PO Last administered on 01/23/17 08:55 ; Start 01/20/17 at 12:00 Lorazepam (Ativan) 0.5 mg BID PO Last administered on 01/21/17 09:05; Start at 12:30; Stop 01/21/17 at 20:30; Status DC Morphine Sulfate 2 mg PRN Q1HR PRN IV PAIN Last administered on 01/21/17 20:43 ; Start 01/20/17 at 13:15; Stop 01/21/17 at 22:00; Status DC Morphine Sulfate 10 mg STK-MED ONCE .ROUTE ; Start 01/20/17 at 13:05; Stop 01/20 at 13:06; Status DC Morphine Sulfate 1 mg 1X ONCE IV Last administered on 01/20/17 13:20; Start 01/20/17 at 13:30; Stop 01/20/17 at 13:31; Status DC Promethazine HCl/ Codeine (Phenergan With Codeine) 10 ml PRN Q4HRS PRN PO COUGH Last administered on 01/22/17 17:50; Start 01/21/17 at 07:45 Methylprednisolone Sodium Succinate (SOLU-Medrol 125MG VIAL) 125 mg Q12HR IV Last administered on 01/23/17 08:58; Start 01/21/17 at 09:00 Lorazepam (Ativan) 1 mg BID PO Last administered on 01/22/17 09:08; Start at 21:00; Stop 01/22/17 at 10:59; Status DC Naloxone HCl (Narcan) 0.4 mg STK-MED ONCE .ROUTE ; Start 01/21/17 at 20:36; Stop 01/21/17 at 20:37; Status DC Albuterol Sulfate (Ventolin Neb Soln) 2.5 mg PRN Q2HR PRN NEB SHORTNESS OF BREATH; Start 01/21/17 at 20:30 Lorazepam (Ativan) 1 mg PRN Q6HRS PRN IV ANXIETY / AGITATION Last administered on 01/23/17 03:57; Start 01/21/17 at 20:30 Furosemide (Lasix) 40 mg 1X ONCE IVP Last administered on 01/21/17 21:32; Start 01/21/17 at 21:30; Stop 01/21/17 at 21:31; Status DC Morphine Sulfate 30 ml @ 0 mls/hr CONT PRN PRN IV PROTOCOL Last administered on 01/23/17 03:00; Start 01/21/17 at 21:30 Lorazepam (Ativan) 1 mg TID PO Last administered on 01/23/17 08:56; Start at 14:00 Active Scripts Active Reported Oxycodone Hcl 10 Mg Tablet 20 Mg PO TID PRN Symbicort 160-4.5 Mcg Inhaler (Budesonide/Formoterol Fumarate) 10.2 Gm Hfa.aer.ad 2 Puff IH BID Alprazolam 2 Mg Tablet 1.5 Tab PO QHS Senna Plus Tablet (Sennosides/Docusate Sodium) 1 Each Tablet 1 Each PO QHS Prednisone 20 Mg Tablet 1 Tab PO DAILY Lisinopril 2.5 Mg Tablet 1 Tab PO DAILY Lamotrigine 200 Mg Tablet 1 Tab PO BID Furosemide 20 Mg Tablet 1 Tab PO DAILY Famotidine 40 Mg Tablet 40 Mg PO HS Lexapro (Escitalopram Oxalate) 20 Mg Tablet 25 Mg PO DAILY Phentermine Hcl 37.5 Mg Tablet 1 Tab PO PRN BID PRN Actonel (Risedronate Sodium) 150 Mg Tablet 1 Tab PO QMONTH Miralax (Polyethylene Glycol 3350) 17 Gm Powd.pack 1 Packet PO DAILY PRN Olopatadine HCl 30.5 Gm [place].pump 30.5 Gm NS DAILY Flonase Allergy Relief (Fluticasone Propionate) 9.9 Ml [place].susp 1 Sprays NS BID FENTANYL 100mcg/hr (Fentanyl) 1 Each Patch.td72 1 Patch TD Q72H Proair Hfa Inhaler (Albuterol Sulfate) 8.5 Gm Hfa.aer.ad 2 Puff INH QID PRN [place]-3 ([place]-3 Fatty Acids) 1,000 Mg Capsule 1,000 Mg PO BID Multi-Vitamin Daily (Multivitamin) 1 Each Tablet 1 Each PO Glucosamine 1,500 Complex Cp (Gluc Becerril/Chondro Becerril A/Vit C/Mn) 1 Each Capsule 1 Each PO BID Calcium Carbonate 600 Mg Tablet 600 Mg PO BID Zoloft (Sertraline Hcl) 100 Mg Tablet 2 Tab PO DAILY Protonix (Pantoprazole Sodium) 40 Mg Tablet.dr 1 Tab PO BID Oxycodone Hcl 20 Mg Tablet 40 Mg PO TID PRN Oxybutynin Chloride 5 Mg Tablet 1 Tab PO BID Montelukast Sodium Tablet (Montelukast Sodium) 10 Mg Tablet 10 Mg PO HS Metoprolol Succinate ( Xl ) (Metoprolol Succinate) 25 Mg Tab.er.24h 1 Tab PO DAILY Mobic (Meloxicam) 15 Mg Tablet 1 Tab PO DAILY Loratadine 10 Mg Tablet 1 Tab PO DAILY Cymbalta (Duloxetine Hcl) 60 Mg Capsule.dr 1 Cap PO [id number] Colace (Docusate Sodium) 100 Mg Capsule 1 Cap PO BID Alprazolam 1 Mg Tablet 1 Tab PO TID Align (Bifidobacterium Infantis) 4 Mg Capsule 4 Mg PO HS Vitals/I & O Vital Sign - Last 24 Hours 01/22/17 01/22/17 01/22/17 01/22/17 11:44 12:45 15:03 16:48 Temp 98.0 98.0 Pulse 88 Resp 18 B/P (MAP) 104/63 (77) Pulse Ox 100 96 94 O2 Delivery BiPAP/CPAP Bi-pap Nasal Cannula O2 Flow Rate 4.0 01/22/17 01/22/17 01/22/17 01/22/17 17:04 17:18 19:00 20:03 Temp 97.4 97.4 Pulse 86 Resp 20 22 B/P (MAP) 110/56 (74) Pulse Ox 97 94 94 O2 Delivery Nasal Cannula Nasal Cannula Nasal Cannula Nasal Cannula O2 Flow Rate 4.0 4.0 4.0 4.0 01/22/17 01/22/17 01/22/17 01/23/17 20:24 23:15 23:20 00:35 Temp 97.2 97.2 Pulse 68 Resp 22 B/P (MAP) 96/63 (74) Pulse Ox 100 98 99 100 O2 Delivery BiPAP/CPAP BiPAP/CPAP BiPAP/CPAP BiPAP/CPAP 01/23/17 01/23/17 01/23/17 01/23/17 03:13 03:20 05:15 07:00 Temp 97.1 95.9 97.1 95.9 Pulse 68 73 Resp 22 22 B/P (MAP) 130/70 (90) 130/66 (87) Pulse Ox 97 98 100 100 O2 Delivery BiPAP/CPAP BiPAP/CPAP BiPAP/CPAP BiPAP/CPAP 01/23/17 01/23/17 01/23/17 01/23/17 07:16 08:00 08:00 08:54 Pulse 70 B/P (MAP) 130/66 Pulse Ox 100 O2 Delivery BiPAP/CPAP Nasal Cannula O2 Flow Rate 4.0 4.0 01/23/17 01/23/17 08:55 10:47 Temp 97.5 97.5 Pulse 78 69 Resp 24 B/P (MAP) 130/66 120/66 (84) Pulse Ox 100 O2 Delivery BiPAP/CPAP Intake and Output 01/22/17 01/22/17 01/23/17 15:00 23:00 07:00 Intake Total 1384 ml 150 ml Output Total 1000 ml 800 ml Balance 384 ml -650 ml BRITTANY OMALLEY MD January 23, 2017 11:23
--- NOTE | 2017-01-23 13:18 | PDOC2 ---
PALLIATIVE CARE Palliative Care Note Palliative Care Patient drowsy. Unable to carry a conversation Spoke with Donnell, patient's . Shared that patient had difficult week- end. SOB with minimal exertion. Morphine gtt started. Was able to continue with BiPap. Morphine gtts off now. Patient remains adamant that she wants to see specialist at [facility]. Appointment next week. want to follow her wishes however he does see her declining. Code Status: DNR/DNI Continue current treatment plan per patient and 's wishes. KAYLENE WELLS January 23, 2017 13:18
[2017-01-23] MEDS: VANCOMYCIN PER PHARMACY MC PRN (14:32)
[2017-01-23 14:58] VITALS: BP 120/71
[2017-01-23 19:10] VITALS: BP 141/79
[2017-01-23] MEDS: SENNOSIDES/DOCUSATE 8.6/50MG TABLET. PO SCH (21:34)
[2017-01-23] MEDS: LACTOBACILLUS ACIDOPH & BULGAR 1 TABLET. PO SCH (21:35)
[2017-01-23] MEDS: MONTELUKAST SODIUM 10 MG TABLET. PO SCH (21:35)
[2017-01-23] MEDS: FAMOTIDINE 20 MG TABLET. PO SCH (21:35)
[2017-01-23] MEDS: VANCOMYCIN 1.5 GM in IV NORMAL SALINE 500ML BAG 500 ML IV SCH (21:37)
[2017-01-23 22:52] VITALS: BP 158/80
[2017-01-24] MEDS: PIPERACILLIN/TAZOBACTAM 3.375 GM in IV NORMAL SALINE 50ML 50 ML IV SCH ×3 (01:06→12:29)
[2017-01-24 03:50] VITALS: BP 141/73
[2017-01-24 04:28] LABS: CALCIUM 8.6 mg/dL (8.5-10.1); CREATININE 1.2 mg/dL (0.6-1.0); GFR 44.9; POTASSIUM 4.6 mmol/L (3.5-5.1)
[2017-01-24] MEDS: DULoxetine HCL 30 MG CAPSULE.DR PO SCH (06:25)
[2017-01-24 07:00] VITALS: BP 151/73
[2017-01-24] MEDS: IV NORMAL SALINE 1000ML BAG 1,000 ML IV SCH ×2 (07:55→14:20)
[2017-01-24] MEDS: IPRATRPIUM/ALBUTEROL 0.5/2.5MG 3 ML NEBU. NEB SCH ×2 (08:08→12:04)
[2017-01-24] MEDS: PANTOPRAZOLE 40 MG TABLET.DR. PO SCH (08:39)
[2017-01-24] MEDS: DOCUSATE SODIUM 100 MG CAPSULE. PO SCH (08:39)
[2017-01-24] MEDS: LORazepam 1 MG TABLET PO SCH (08:39)
[2017-01-24] MEDS: OMEGA-3 FATTY ACIDS/FISH OIL 1,000 MG CAPSULE. PO SCH (08:39)
[2017-01-24] MEDS: FUROSEMIDE 20 MG TABLET PO SCH (08:39)
[2017-01-24] MEDS: METOPROLOL SUCC 24HR ER 25 MG TAB.ER.24H. PO SCH (08:39)
[2017-01-24] MEDS: CETIRIZINE HCL 10 MG TABLET. PO SCH (08:39)
[2017-01-24] MEDS: MELOXICAM 7.5 MG TABLET PO SCH (08:39)
[2017-01-24] MEDS: BENZONATATE 100 MG CAPSULE. PO SCH ×2 (08:39→14:00)
[2017-01-24] MEDS: ESCITALOPRAM 10 MG TABLET. PO SCH (08:40)
[2017-01-24] MEDS: OXYBUTYNIN CHLORIDE 5 MG TABLET PO SCH (08:40)
[2017-01-24] MEDS: PROMETH/CODEINE 6.25/10MG 5 ML SYRUP. PO PRN (08:41)
[2017-01-24] MEDS: methylPREDNISolone SOD SUCC PF 125 MG/2 ML VIAL. IV SCH (08:41)
[2017-01-24] MEDS: lamoTRIgine 100 MG TABLET. PO SCH (08:41)
[2017-01-24] MEDS: LISINOPRIL 2.5 MG TABLET PO SCH (08:41)
[2017-01-24] MEDS: VANCOMYCIN PER PHARMACY MC PRN (09:20)
[2017-01-24 11:00] VITALS: BP 120/80
[2017-01-24] MEDS: ENOXAPARIN 40 MG/0.4 ML SYRINGE. SQ SCH (11:11)
[2017-01-24] MEDS: oxyCODONE IR 5 MG TABLET PO PRN (11:12)
--- NOTE | 2017-01-24 11:41 | PDOC ---
PULMONARY PROGRESS NOTES Subjective FEELS BETTER OFF BIPAP Vitals Vital Signs Date Time Temp Pulse Resp B/P (MAP) Pulse Ox O2 Delivery O2 Flow Rate FiO2 01/24/17 11:12 22 Nasal Cannula 4.0 01/24/17 11:00 98.2 95 120/80 (93) 98 98.2 ROS: No Nausea, No Chest Pain, No Abdominal Pain General: Alert Lungs: Crackles (bilateral - improved slightly) Cardiovascular: S1, S2 Abdomen: Soft Neuro Exam: Alert Extremities: No Edema Skin: Warm Labs Laboratory Tests Test 01/22/17 16:24 01/22/17 20:35 01/23/17 06:15 01/23/17 07:31 Glucose (Fingerstick) 151 mg/dL (70-99) 111 mg/dL (70-99) 122 mg/dL (70-99) White Blood Count 9.9 x10^3/uL (4.0-11.0) Red Blood Count 3.31 x10^6/uL (3.50-5.40) Hemoglobin 10.3 g/dL (12.0-15.5) Hematocrit 31.8 % (36.0-47.0) Mean Corpuscular Volume 96 fL (79-100) Mean Corpuscular Hemoglobin 31 pg (25-35) Mean Corpuscular Hemoglobin Concent 32 g/dL (31-37) Red Cell Distribution Width 14.1 % (11.5-14.5) Platelet Count 152 x10^3/uL (140-400) Neutrophils (%) (Auto) 91 % (31-73) Lymphocytes (%) (Auto) 6 % (24-48) Monocytes (%) (Auto) 3 % (0-9) Eosinophils (%) (Auto) 0 % (0-3) Basophils (%) (Auto) 0 % (0-3) Neutrophils # (Auto) 9.0 x10^3uL (1.8-7.7) Lymphocytes # (Auto) 0.6 x10^3/uL (1.0-4.8) Monocytes # (Auto) 0.3 x10^3/uL (0.0-1.1) Eosinophils # (Auto) 0.0 x10^3/uL (0.0-0.7) Basophils # (Auto) 0.0 x10^3/uL (0.0-0.2) Sodium Level 144 mmol/L (136-145) Potassium Level 5.0 mmol/L (3.5-5.1) Chloride Level 106 mmol/L (98-107) Carbon Dioxide Level 37 mmol/L (21-32) Anion Gap 1 (6-14) Blood Urea Nitrogen 33 mg/dL (7-20) Creatinine 1.1 mg/dL (0.6-1.0) Estimated GFR (Cockcroft-Gault) 49.7 Glucose Level 133 mg/dL (70-99) Calcium Level 8.7 mg/dL (8.5-10.1) Test 01/23/17 12:01 01/23/17 16:57 01/23/17 20:39 01/24/17 03:05 Glucose (Fingerstick) 155 mg/dL (70-99) 138 mg/dL (70-99) 95 mg/dL (70-99) Sodium Level 145 mmol/L (136-145) Potassium Level 4.6 mmol/L (3.5-5.1) Chloride Level 107 mmol/L (98-107) Carbon Dioxide Level 34 mmol/L (21-32) Anion Gap 4 (6-14) Blood Urea Nitrogen 35 mg/dL (7-20) Creatinine 1.2 mg/dL (0.6-1.0) Estimated GFR (Cockcroft-Gault) 44.9 Glucose Level 145 mg/dL (70-99) Calcium Level 8.6 mg/dL (8.5-10.1) Test 01/24/17 08:20 Glucose (Fingerstick) 122 mg/dL (70-99) Laboratory Tests Test 01/23/17 12:01 01/23/17 16:57 01/23/17 20:39 01/24/17 03:05 Glucose (Fingerstick) 155 mg/dL (70-99) 138 mg/dL (70-99) 95 mg/dL (70-99) Sodium Level 145 mmol/L (136-145) Potassium Level 4.6 mmol/L (3.5-5.1) Chloride Level 107 mmol/L (98-107) Carbon Dioxide Level 34 mmol/L (21-32) Anion Gap 4 (6-14) Blood Urea Nitrogen 35 mg/dL (7-20) Creatinine 1.2 mg/dL (0.6-1.0) Estimated GFR (Cockcroft-Gault) 44.9 Glucose Level 145 mg/dL (70-99) Calcium Level 8.6 mg/dL (8.5-10.1) Test 01/24/17 08:20 Glucose (Fingerstick) 122 mg/dL (70-99) Medications Active Scripts Medications Dose Route/Sig Max Daily Dose Days Date Category Oxycodone Hcl 10 Mg Tablet 20 Mg PO TID PRN 01/17/17 Reported Symbicort 160-4.5 Mcg Inhaler (Budesonide/Formoterol Fumarate) 10.2 Gm Hfa.aer.ad 2 Puff IH BID 01/17/17 Reported Alprazolam 2 Mg Tablet 1.5 Tab PO QHS 01/17/17 Reported Senna Plus Tablet (Sennosides/Docusate Sodium) 1 Each Tablet 1 Each PO QHS 01/17/17 Reported Prednisone 20 Mg Tablet 1 Tab PO DAILY 01/17/17 Reported Lisinopril 2.5 Mg Tablet 1 Tab PO DAILY 01/17/17 Reported Lamotrigine 200 Mg Tablet 1 Tab PO BID 01/17/17 Reported Furosemide 20 Mg Tablet 1 Tab PO DAILY 01/17/17 Reported Famotidine 40 Mg Tablet 40 Mg PO HS 01/17/17 Reported Lexapro (Escitalopram Oxalate) 20 Mg Tablet 25 Mg PO DAILY 01/17/17 Reported Phentermine Hcl 37.5 Mg Tablet 1 Tab PO PRN BID PRN 08/21/16 Reported Actonel (Risedronate Sodium) 150 Mg Tablet 1 Tab PO QMONTH 08/21/16 Reported Miralax (Polyethylene Glycol 3350) 17 Gm Powd.pack 1 Packet PO DAILY PRN 08/21/16 Reported Olopatadine HCl 30.5 Gm [place].pump 30.5 Gm NS DAILY 08/21/16 Reported Flonase Allergy Relief (Fluticasone Propionate) 9.9 Ml [place].susp 1 Sprays NS BID 08/21/16 Reported FENTANYL 100mcg/hr (Fentanyl) 1 Each Patch.td72 1 Patch TD Q72H 08/21/16 Reported Proair Hfa Inhaler (Albuterol Sulfate) 8.5 Gm Hfa.aer.ad 2 Puff INH QID PRN 08/21/16 Reported [place]-3 ([place]-3 Fatty Acids) 1,000 Mg Capsule 1,000 Mg PO BID 08/21/16 Reported Multi-Vitamin Daily (Multivitamin) 1 Each Tablet 1 Each PO 08/21/16 Reported Glucosamine 1,500 Complex Cp (Gluc Becerril/Chondro Becerril A/Vit C/Mn) 1 Each Capsule 1 Each PO BID 08/21/16 Reported Calcium Carbonate 600 Mg Tablet 600 Mg PO BID 08/21/16 Reported Zoloft (Sertraline Hcl) 100 Mg Tablet 2 Tab PO DAILY 08/21/16 Reported Protonix (Pantoprazole Sodium) 40 Mg Tablet.dr 1 Tab PO BID 08/21/16 Reported Oxycodone Hcl 20 Mg Tablet 40 Mg PO TID PRN 08/21/16 Reported Oxybutynin Chloride 5 Mg Tablet 1 Tab PO BID 08/21/16 Reported Montelukast Sodium Tablet (Montelukast Sodium) 10 Mg Tablet 10 Mg PO HS 08/21/16 Reported Metoprolol Succinate ( Xl ) (Metoprolol Succinate) 25 Mg Tab.er.24h 1 Tab PO DAILY 08/21/16 Reported Mobic (Meloxicam) 15 Mg Tablet 1 Tab PO DAILY 08/21/16 Reported Loratadine 10 Mg Tablet 1 Tab PO DAILY 08/21/16 Reported Cymbalta (Duloxetine Hcl) 60 Mg Capsule.dr 1 Cap PO BID76 08/21/16 Reported Colace (Docusate Sodium) 100 Mg Capsule 1 Cap PO BID 08/21/16 Reported Alprazolam 1 Mg Tablet 1 Tab PO TID 08/21/16 Reported Align (Bifidobacterium Infantis) 4 Mg Capsule 4 Mg PO HS 08/21/16 Reported Comments CXR REVIEWED NO CHANGE Impression . 1. Acute on chronic respiratory failure secondary to underlying pulmonary fibrosis, interstitial lung disease and chronic bronchiectasis.? ETIOLOGY/? sarcoidosis 2. Concurrent superimposed pneumonia 3. Subjective fever at home. 4. Hypertension. 5. Hyperlipidemia. 6. Cough sec to above Plan . PRN BIPAP, PRN NARCOTICS / DC BENZO IV STEROIDS/ MAY RESPOND IF ITS SARCOIDOSIS/ WILL TAPER DOSE COUGH SUPPRESSANT CONTINUE 02 DNR/DNI DVT PROPHYLAXIS D/W / PT. WILL PLAN TO DC HOME IN 24 HRS. SHE WANTS TO FOLLOW [facility] PT ON HOME OXYGEN 4 LITRES AT REST AND 7 LITRES WITH EXERCISE NANCY KABA MD January 24, 2017 11:41
[2017-01-24] MEDS ORDERED: AMOX1TAB61 PO (14:17)
[2017-01-24] MEDS ORDERED: LEVO750T31 PO (14:17)
--- NOTE | 2017-01-24 14:25 | PDOC3 ---
Discharge Summary Visit Information Date of Admission: January 16, 2017 Date of Discharge: January 24, 2017 Admitting Diagnosis Comment: 1. Acute on chronic respiratory failure secondary to underlying pulmonary fibrosis, interstitial lung disease and chronic bronchiectasis. 2. Concurrent superimposed pneumonia and acute exacerbation of COPD leading toincreasing shortness of breath. 3. Subjective fever at home. 4. Hypertension. 5. Hyperlipidemia. 6. Cough sec to above 7. Obesity 8. DNR Brief Hospital Course Allergies Allergies Coded Allergies Type Severity Reaction Last Updated Verified pregabalin Allergy Severe SWELLING, WEIGHT GAIN 11/23/15 Yes sitagliptin Allergy Severe "I BOTTOM OUT LIKE A DIABETIC" 11/23/15 Yes Sulfa (Sulfonamide Antibiotics) Allergy Intermediate RASH 11/23/15 Yes adhesive Allergy Intermediate BLISTERS, RASH 11/23/15 Yes Vital Signs Vital Signs Date Time Temp Pulse Resp B/P (MAP) Pulse Ox O2 Delivery O2 Flow Rate FiO2 01/24/17 12:12 22 Nasal Cannula 5.0 01/24/17 11:00 98.2 95 120/80 (93) 98 98.2 Lab Results Laboratory Tests Test 01/22/17 16:24 01/22/17 20:35 01/23/17 06:15 01/23/17 07:31 Glucose (Fingerstick) 151 mg/dL (70-99) 111 mg/dL (70-99) 122 mg/dL (70-99) White Blood Count 9.9 x10^3/uL (4.0-11.0) Red Blood Count 3.31 x10^6/uL (3.50-5.40) Hemoglobin 10.3 g/dL (12.0-15.5) Hematocrit 31.8 % (36.0-47.0) Mean Corpuscular Volume 96 fL (79-100) Mean Corpuscular Hemoglobin 31 pg (25-35) Mean Corpuscular Hemoglobin Concent 32 g/dL (31-37) Red Cell Distribution Width 14.1 % (11.5-14.5) Platelet Count 152 x10^3/uL (140-400) Neutrophils (%) (Auto) 91 % (31-73) Lymphocytes (%) (Auto) 6 % (24-48) Monocytes (%) (Auto) 3 % (0-9) Eosinophils (%) (Auto) 0 % (0-3) Basophils (%) (Auto) 0 % (0-3) Neutrophils # (Auto) 9.0 x10^3uL (1.8-7.7) Lymphocytes # (Auto) 0.6 x10^3/uL (1.0-4.8) Monocytes # (Auto) 0.3 x10^3/uL (0.0-1.1) Eosinophils # (Auto) 0.0 x10^3/uL (0.0-0.7) Basophils # (Auto) 0.0 x10^3/uL (0.0-0.2) Sodium Level 144 mmol/L (136-145) Potassium Level 5.0 mmol/L (3.5-5.1) Chloride Level 106 mmol/L (98-107) Carbon Dioxide Level 37 mmol/L (21-32) Anion Gap 1 (6-14) Blood Urea Nitrogen 33 mg/dL (7-20) Creatinine 1.1 mg/dL (0.6-1.0) Estimated GFR (Cockcroft-Gault) 49.7 Glucose Level 133 mg/dL (70-99) Calcium Level 8.7 mg/dL (8.5-10.1) Test 01/23/17 12:01 01/23/17 16:57 01/23/17 20:39 01/24/17 03:05 Glucose (Fingerstick) 155 mg/dL (70-99) 138 mg/dL (70-99) 95 mg/dL (70-99) Sodium Level 145 mmol/L (136-145) Potassium Level 4.6 mmol/L (3.5-5.1) Chloride Level 107 mmol/L (98-107) Carbon Dioxide Level 34 mmol/L (21-32) Anion Gap 4 (6-14) Blood Urea Nitrogen 35 mg/dL (7-20) Creatinine 1.2 mg/dL (0.6-1.0) Estimated GFR (Cockcroft-Gault) 44.9 Glucose Level 145 mg/dL (70-99) Calcium Level 8.6 mg/dL (8.5-10.1) Test 01/24/17 08:20 01/24/17 12:20 Glucose (Fingerstick) 122 mg/dL (70-99) 119 mg/dL (70-99) Laboratory Tests Test 01/23/17 16:57 01/23/17 20:39 01/24/17 03:05 01/24/17 08:20 Glucose (Fingerstick) 138 mg/dL (70-99) 95 mg/dL (70-99) 122 mg/dL (70-99) Sodium Level 145 mmol/L (136-145) Potassium Level 4.6 mmol/L (3.5-5.1) Chloride Level 107 mmol/L (98-107) Carbon Dioxide Level 34 mmol/L (21-32) Anion Gap 4 (6-14) Blood Urea Nitrogen 35 mg/dL (7-20) Creatinine 1.2 mg/dL (0.6-1.0) Estimated GFR (Cockcroft-Gault) 44.9 Glucose Level 145 mg/dL (70-99) Calcium Level 8.6 mg/dL (8.5-10.1) Test 01/24/17 12:20 Glucose (Fingerstick) 119 mg/dL (70-99) Brief Hospital Course Ms. Gaston is a 66 old female admitted for severe respi failure almost constantly needing BIPAP 19/03. CO managed with pulmo, DNR, claims has bIPAP and O2 at home (everything she needs), did not want to go back to [facility] (has been there before), requiring high doses steroids 125 BID. SOme confusion in her course. STayed 7 days, treated with iV vanc, levaquin and zosyn,NO fevers, no WBC, Advised ff up [facility] where she goes, DNR signed. To go with AUgmentin and levaquin and pred high dose taper all written for. BEcame very agitated today [facility] wants to leave pulmo TIme 32mins Seen and examined Dw RN at bedside CnsulTs; pulmo, palliative DNR but active med tx Proc: none Discharge Information Condition at Discharge: Improved, Stable Disposition/Orders: D/C to Home w/ HH Scheduled Alprazolam (Alprazolam), 1 TAB PO TID, (Reported) Alprazolam (Alprazolam), 1.5 TAB PO QHS, (Reported) Bifidobacterium Infantis (Align), 4 MG PO HS, (Reported) Budesonide/Formoterol Fumarate (Symbicort 160-4.5 Mcg Inhaler), 2 PUFF IH BID, ( Reported) Calcium Carbonate (Calcium Carbonate), 600 MG PO BID, (Reported) Docusate Sodium (Colace), 1 CAP PO BID, (Reported) Duloxetine Hcl (Cymbalta), 1 CAP PO BID76, (Reported) Escitalopram Oxalate (Lexapro), 25 MG PO DAILY, (Reported) Famotidine (Famotidine), 40 MG PO HS, (Reported) Fentanyl (FENTANYL 100mcg/hr), 1 PATCH TD Q72H, (Reported) Fluticasone Propionate (Flonase Allergy Relief), 1 SPRAYS NS BID, (Reported) Furosemide (Furosemide), 1 TAB PO DAILY, (Reported) Gluc Becerril/Chondro Becerril A/Vit C/Mn (Glucosamine 1,500 Complex Cp), 1 EACH PO BID, ( Reported) Lamotrigine (Lamotrigine), 1 TAB PO BID, (Reported) Lisinopril (Lisinopril), 1 TAB PO DAILY, (Reported) Loratadine (Loratadine), 1 TAB PO DAILY, (Reported) Meloxicam (Mobic), 1 TAB PO DAILY, (Reported) Metoprolol Succinate (Metoprolol Succinate ( Xl )), 1 TAB PO DAILY, (Reported) Montelukast Sodium (Montelukast Sodium Tablet), 10 MG PO HS, (Reported) Olopatadine HCl (Olopatadine HCl), 30.5 GM NS DAILY, (Reported) [place]-3 Fatty Acids ([place]-3), 1,000 MG PO BID, (Reported) Oxybutynin Chloride (Oxybutynin Chloride), 1 TAB PO BID, (Reported) Pantoprazole Sodium (Protonix), 1 TAB PO BID, (Reported) Prednisone (Prednisone), 1 TAB PO DAILY, (Reported) Risedronate Sodium (Actonel), 1 TAB PO QMONTH, (Reported) Sennosides/Docusate Sodium ([place] Plus Tablet), 1 EACH PO QHS, (Reported) Sertraline Hcl (Zoloft), 2 TAB PO DAILY, (Reported) Scheduled PRN Albuterol Sulfate (Proair Hfa Inhaler), 2 PUFF INH QID PRN for SHORTNESS OF BREATH, (Reported) Oxycodone Hcl (Oxycodone Hcl), 40 MG PO TID PRN for PAIN, (Reported) Oxycodone Hcl (Oxycodone Hcl), 20 MG PO TID PRN for PAIN, (Reported) Phentermine Hcl (Phentermine Hcl), 1 TAB PO PRN BID PRN for ANXIETY / AGITATION, (Reported) Polyethylene Glycol 3350 (Miralax), 1 PACKET PO DAILY PRN for CONSTIPATION, ( Reported) Miscellaneous Medications Multivitamin (Multi-Vitamin Daily), 1 EACH PO, (Reported) Discontinued Medications Alprazolam (Alprazolam), 1 TAB PO HS, (Reported) Alprazolam (Alprazolam), 1 TAB PO HS, (Reported) Canagliflozin (Invokana), 300 MG PO DAILY, (Reported) Furosemide (Furosemide), 1 TAB PO DAILY, (Reported) Methocarbamol (Robaxin-750), 750 MG PO QID, (Reported) Spironolactone (Aldactone), 2 TAB PO DAILY16, (Reported) BRITTANY OMALLEY MD January 24, 2017 14:25
--- NOTE | 2017-01-24 14:54 | PDOC2 ---
PALLIATIVE CARE Palliative Care Note Palliative Care Patient more alert today. Sitting up in chair. Visiting with friend Goal is to continue current treatment plan. Will follow-up with jordan man at [facility] on January 31. KAYLENE WELLS January 24, 2017 14:54
== END 2017-01-24 17:00 | disposition home health service (06) | DRG 177 ==
LOC: MERGE 21:19 → 1 WEST ICU 21:19 → 2 SOUTH 21:32
PROVIDERS: ADMIT Internal Medicine; ATTEND Internal Medicine
PROC: 5A09357 Assistance with Respiratory Ventilation, Less than 24 Consecutive Hours, Continuous Positive Airway Pressure (ICD-10-PCS; principal; 2017-01-21)
DX: J69.0 Pneumonitis due to inhalation of food and vomit (principal); J96.20 Acute and chronic respiratory failure, unspecified whether with hypoxia or hypercapnia; I50.33 Acute on chronic diastolic (congestive) heart failure; J44.1 Chronic obstructive pulmonary disease with (acute) exacerbation; Z68.41 Body mass index [BMI] 40.0-44.9, adult; E11.9 Type 2 diabetes mellitus without complications; E66.9 Obesity, unspecified; E78.5 Hyperlipidemia, unspecified; Z51.5 Encounter for palliative care; J04.0 Acute laryngitis; F41.9 Anxiety disorder, unspecified; I11.0 Hypertensive heart disease with heart failure; M81.0 Age-related osteoporosis without current pathological fracture; Z66 Do not resuscitate; G89.21 Chronic pain due to trauma; M54.5 Low back pain; I95.9 Hypotension, unspecified; Z88.2 Allergy status to sulfonamides; Z99.81 Dependence on supplemental oxygen; Z79.51 Long term (current) use of inhaled steroids; Z79.899 Other long term (current) drug therapy; V89.2XXS Person injured in unspecified motor-vehicle accident, traffic, sequela; Z88.8 Allergy status to other drugs, medicaments and biological substances; Z91.048 Other nonmedicinal substance allergy status
CPT/HCPCS: 36415; 71010; 71020; 71250; 80048; 80202; 82962; 83605; 83735; 83880; 84443; 85007; 85027; 93005; 94250; 94640; 94660; 94760; J1650; J1720; J1940; J1956; J2060; J2270; J2543; J2920; J2930; J3370; J7030; J7040; J7620